=== PATIENT | female | born 1945 | race Caucasian/White ===

== ENCOUNTER 2016-08-01 12:05 | Inpatient (IN) ==
[2016-08-01 12:33] VITALS: BMI 26.9
[2016-08-01] MEDS ORDERED: ZOFRAN 4 MG/2 ML IVP PRN (12:39)
[2016-08-01 12:41] LABS: BASOPHILS % (AUTO) 0.4 % (0.0-3.0); EOSINOPHILS % (AUTO) 0.6 % (0.0-7.0); HEMOGLOBIN 11.4 g/dl (12.0-16.0); IMMATURE GRANULOCYTE % (AUTO) 0.2 % (0.0-5.0); LYMPHOCYTES # (AUTO) 0.7 K/uL (0.60-3.4); LYMPHOCYTES % (AUTO) 13.8 (10.0-50.0); MEAN CORPUSCULAR HEMOGLOBIN 27.1 pg (27.0-31.0); MEAN CORPUSCULAR HGB CONC 33.5 (31.8-35.4); MEAN CORPUSCULAR VOLUME 80.8 fl (81.0-99.0); MONOCYTES # (AUTO) 0.6 K/uL (0.4-2.0); MONOCYTES % (AUTO) 11.1 (0-10); NEUTROPHILS # (AUTO) 3.7 K/ul (2.0-6.9); NEUTROPHILS % (AUTO) 73.9; PLATELET COUNT 164 10^3/uL (140-440); RED BLOOD COUNT 4.21 10^6/ul (4.20-5.40); WHITE BLOOD COUNT 4.94 K/ul (4.6-10.2)
[2016-08-01 13:01] LABS: ALBUMIN 3.5 g/dL (3.4-5.0); ALBUMIN/GLOBULIN RATIO 1.06; ANION GAP 16.8; BILIRUBIN,TOTAL 0.74 mg/dL (0.00-1.20); BUN/CREATININE RATIO 11.34; CALCIUM 8.9 mg/dL (8.2-10.2); CREATININE 1.41 mg/dL (0.60-1.30); POTASSIUM 3.8 mmol/L (3.5-5.10); TOTAL PROTEIN 6.8 g/dL (5.8-8.1)
[2016-08-01] MEDS: SODIUM CHLORIDE 1,000 ML IV SCH (13:28)
[2016-08-01] MEDS: SOLU-MEDROL 40 MG IVP SCH ×2 (13:32→20:51)
[2016-08-01] MEDS: ROCEPHIN 1 GM in SODIUM CHLORIDE 100 ML IV SCH (13:32)
[2016-08-01] MEDS: DUONEB NEB SCH ×2 (13:52→22:28)
[2016-08-01 14:45] LABS: FLU INTERNAL QC INTERNAL QC VALID; RAPID FLU A POSITIVE (NEGATIVE); RAPID FLU B NEGATIVE (NEGATIVE)
--- NOTE | 2016-08-01 14:54 | DI ---
EXAM: PA and lateral views of the chest HISTORY: Bronchitis COMPARISON: Chest x-ray 04/07/[address] abdomen pelvis FINDINGS: The cardiomediastinal silhouette is unchanged with intact sternotomy wires and cardiac va lve. There is no pneumothorax or pleural effusion. There is no consolidation, nodule or mass. The minimal ground-glass noted in the left lower lobe on same day CT abdomen pelvis is not identified on chest x-ray. The osseous structures demonstrate scattered degenerative change and osteophyte format ion. IMPRESSION: 1. No acute consolidation or mass. Ground-glass in the left lower lobe on same day CT abdomen pelvi s is not identified on chest x-ray likely representing postinflammatory change. 2. Cardiomegaly with stable hardware.
--- NOTE | 2016-08-01 14:58 | CT ---
EXAM: CT Abdomen without contrast. CT Pelvis without contrast. HISTORY: Decreased appetite. Nausea. COMPARISON: 04/04/2016. TECHNIQUE: Multiple axial images of the abdomen and pelvis were obtained without intravenous contra st. Images were reformatted in the coronal plane. FINDINGS: Please note that evaluation of the abdominal and pelvic structures is limited due to lack of intravenous contrast. There has been previous sternotomy. Small focus of ground-glass opacities and small nodules seen in the left lower lobe on axial images six through 10. Thoracic spinal cord stimulator is present. Lower lumbar spine fusion changes noted. Degenerative changes present in the spine and hips. The liver, gallbladder, pancreas, spleen, and adrenal glands demonstrate normal contour. No calcifi ed renal stones or hydronephrosis detected. Duodenal diverticulum seen near the pancreatic head. The bowel is normal in course and caliber with out evidence for obstruction or inflammatory process. The appendix is not seen. Small of free pelv ic fluid noted. Uterine contours normal. Urinary bladder is unremarkable. No free air identified. Atherosclerotic calcifications present. Probable subcutaneous injection site in the right anterior abdomen on axial image 50. IMPRESSION: 1. No acute abnormality within the abdomen or pelvis. 2. Small amount of free pelvic fluid which is nonspecific. 3. Small focus of ground-glass opacities and small nodules in the left lower lobe which were not pr esent previously, most likely representing pneumonitis. Follow-up chest CT within 3 months recommen ded for reassessment.
[2016-08-01] MEDS: NYSTATIN ORAL SUSP PO SCH ×2 (15:28→20:52)
[2016-08-01] MEDS: TAMIFLU PO SCH ×2 (15:28→20:52)
[2016-08-01] MEDS: COUMADIN PO SCH ×2 (16:40→16:41)
[2016-08-01] MEDS: COREG PO SCH (16:40)
[2016-08-01] MEDS: GLUCOPHAGE PO SCH (16:40)
[2016-08-01] MEDS ORDERED: WARFARIN SODIUM 3.5 MG PO SCH (17:00)
[2016-08-01 17:39] LABS: BILIRUBIN,URINE Negative (NEGATIVE); KETONES,URINE 1+ (NEGATIVE); LEUKOCYTE ESTERASE ,URINE Negative (NEGATIVE); NITRITE,URINE Negative (NEGATIVE); PROTEIN,URINE Trace (NEGATIVE); URINE, BLOOD 1+ (NEGATIVE)
[2016-08-01 17:43] LABS: ADD URINE MICROSCOPIC YES
[2016-08-01 17:44] LABS: BACTERIA,URINE TRACE (NOT PRESENT)
[2016-08-01] MEDS: HUMULIN R SUBCUT PRN ×2 (18:33→21:09)
[2016-08-01] MEDS: BETAPACE PO SCH (20:51)
[2016-08-01] MEDS: ZOCOR PO SCH (20:52)
[2016-08-01] MEDS ORDERED: SOTALOL HCL 120 MG PO SCH (21:00)
[2016-08-02] MEDS: HUMULIN R SUBCUT PRN ×5 (01:56→20:33)
[2016-08-02] MEDS: SODIUM CHLORIDE 1,000 ML IV SCH ×2 (03:40→08:30)
[2016-08-02] MEDS: SOLU-MEDROL 40 MG IVP SCH ×3 (04:35→20:33)
[2016-08-02 05:13] LABS: HEMATOCRIT 29.5 % (37.0-47.0); HEMOGLOBIN 10.2 g/dl (12.0-16.0); IMMATURE GRANULOCYTE % (AUTO) 0.4 % (0.0-5.0); LYMPHOCYTES # (AUTO) 0.6 K/uL (0.60-3.4); LYMPHOCYTES % (AUTO) 22.2 (10.0-50.0); MEAN CORPUSCULAR HEMOGLOBIN 27.2 pg (27.0-31.0); MEAN CORPUSCULAR HGB CONC 34.6 (31.8-35.4); MEAN CORPUSCULAR VOLUME 78.7 fl (81.0-99.0); MONOCYTES # (AUTO) 0.1 K/uL (0.4-2.0); MONOCYTES % (AUTO) 2.4 (0-10); NEUTROPHILS # (AUTO) 1.9 K/ul (2.0-6.9); PLATELET COUNT 142 10^3/uL (140-440); RED BLOOD COUNT 3.75 10^6/ul (4.20-5.40); WHITE BLOOD COUNT 2.48 K/ul (4.6-10.2)
[2016-08-02] MEDS: DUONEB NEB SCH ×3 (05:13→21:26)
[2016-08-02] MEDS: PRILOSEC PO SCH (05:30)
[2016-08-02] MEDS: SYNTHROID PO SCH (05:30)
[2016-08-02 05:37] LABS: ALBUMIN/GLOBULIN RATIO 1.07; ANION GAP 14.2; BILIRUBIN,TOTAL 0.38 mg/dL (0.00-1.20); BUN/CREATININE RATIO 14.91; CALCIUM 8.5 mg/dL (8.2-10.2); CREATININE 1.14 mg/dL (0.60-1.30); POTASSIUM 3.2 mmol/L (3.5-5.10); TOTAL PROTEIN 5.8 g/dL (5.8-8.1)
[2016-08-02] MEDS: ROCEPHIN 1 GM in SODIUM CHLORIDE 100 ML IV SCH (08:28)
[2016-08-02] MEDS: BETAPACE PO SCH ×2 (08:28→20:34)
[2016-08-02] MEDS: COREG PO SCH ×2 (08:28→17:30)
[2016-08-02] MEDS: NYSTATIN ORAL SUSP PO SCH ×3 (08:28→20:33)
[2016-08-02] MEDS: TAMIFLU PO SCH ×2 (08:29→20:33)
[2016-08-02] MEDS: VITAMIN D PO SCH (08:29)
[2016-08-02] MEDS: ZESTRIL PO SCH (08:29)
[2016-08-02] MEDS: MICRO-K CAP PO SCH (08:29)
[2016-08-02] MEDS: GLUCOPHAGE PO SCH ×2 (08:29→17:30)
[2016-08-02] MEDS: LOZOL PO SCH (08:30)
[2016-08-02] MEDS ORDERED: POTASSIUM CHLORIDE PO SCH (09:00)
[2016-08-02] MEDS ORDERED: NON-FORMULARY MEDICATION (Cholecalciferol (Vitamin D3) [Vitamin D3] 1,000 UNIT) PO SCH ×22 (09:00)
--- NOTE | 2016-08-02 13:04 | PCM.PROG ---
Attending Provider: ATTENDING PROVIDER: Dr. LIBRADO REYES DATE OF SERVICE: 08/02/16 SUBJECTIVE: This 71 year old WHITE/ F was hospitalized 08/01/16. The patient is admitted from the office with flu-like symptoms. The patient is still coughing with congestion. The patient feels some better. She hasn't had any fever since admission. No nausea or vomiting. No abdominal pain. REVIEW OF SYSTEMS: CONSTITUTIONAL: No fever, no chills. ENDOCRINE: No weight loss or weight gain. HEENT: No sinus drainage, no sore throat. CVS: No angina symptoms. No CHF symptoms. No palpitations. No atypical chest pain for CAD. No shortness of breath. RESPIRATORY: No cough, no hemoptysis. GI: No melena. No abdominal pain. No nausea, no vomiting. : No hematuria. No polyuria. SKIN: No rash. No wounds. MUSCULOSKELETAL: No pain. PATTERN CLERK: No blackout, no dizziness. No headache. No double vision. PSYCHIATRIC: Not anxious; no depression. No suicidal thoughts. No homicidal thoughts. PHYSICAL EXAMINATION: GENERAL: Lying in bed in no distress. VITAL SIGNS: Temperature 98.2 F, Pulse 60, Respiratory Rate 13, BP 120/72, Pulse Ox 93% HEENT: Normocephalic, atraumatic. Mucosa is dry, pallor positive. NECK: No JVP, no carotid bruit. No lymphadenopathy. CARDIAC: S1, S2, no S3. No murmur, gallop or regurgitation. LUNGS: Decreased entry. Clear to auscultation. ABDOMEN: Soft, non-tender. Bowel sounds active. No rigidity, guarding or CVA tenderness. EXTREMITIES: No clubbing, cyanosis or edema. NEUROLOGIC: Awake, alert and oriented x3. LYMPHATIC: No palpable lymph nodes SKIN: Not dry. Intact. MUSCULOSKELETAL: No joint swelling. LAB REVIEW: 08/02/16 05:09 08/02/16 05:09 08/02/16 05:09: WBC 2.48 L, RBC 3.75 L, Hgb 10.2 L, Hct 29.5 L, MCV 78.7 L, MCH 27.2, MCHC 34.6, RDW Coeff of Zeus 13.6, Plt Count 142, Immature Gran % (Auto) 0.4, Neut % (Auto) 75.0, Lymph % (Auto) 22.2, [place] % (Auto) 2.4, Eos % (Auto) 0.0, Baso % (Auto) 0.0, Immature Gran # (Auto) 0.0, Neut # 1.9 L, Lymph # 0.6, [place] # 0.1 L, Eos # 0.0, Baso # 0.0, Sodium 134 L, Potassium 3.2 L, Chloride 97 L, Carbon Dioxide 26, Anion Gap 14.2, BUN 17, Creatinine 1.14, Estimated GFR ( MDRD) 47.00, BUN/Creatinine Ratio 14.91, Glucose 287 H D, Calcium 8.5, Total Bilirubin 0.38, AST 24, ALT 23, Alkaline Phosphatase 33 L, Total Protein 5.8, Albumin 3.0 L, Globulin 2.8, Albumin/Globulin Ratio 1.07 08/01/16 17:28: Urine Color Yellow, Urine Clarity Clear, Urine pH 6.0, Ur Specific [place] 1.015, Urine Protein Trace, Urine Glucose (UA) Negative, Urine Ketones 1+, Urine Blood 1+, Urine Nitrite Negative, Urine Bilirubin Negative, Urine Urobilinogen 0.2, Ur Leukocyte Esterase Negative, Urine Microscopic RBC 10 -20, Urine Microscopic WBC 0-2, Ur Squamous Epith Cells 0-2, Ur Renal Epithelial Cell 0-2, Urine Bacteria Trace 08/01/16 12:37: WBC 4.94, RBC 4.21, Hgb 11.4 L, Hct 34.0 L, MCV 80.8 L, MCH 27.1 , MCHC 33.5, RDW Coeff of Zeus 13.6, Plt Count 164, Immature Gran % (Auto) 0.2, Neut % (Auto) 73.9, Lymph % (Auto) 13.8, [place] % (Auto) 11.1 H, Eos % (Auto) 0.6 , Baso % (Auto) 0.4, Immature Gran # (Auto) 0.0, Neut # 3.7, Lymph # 0.7, [place] # 0.6, Eos # 0.0, Baso # 0.0, Sodium 134 L, Potassium 3.8, Chloride 93 L, Carbon Dioxide 28, Anion Gap 16.8, BUN 16, Creatinine 1.41 H, Estimated GFR ( MDRD) 37.00, BUN/Creatinine Ratio 11.34, Glucose 230 H, Calcium 8.9, Total Bilirubin 0.74, AST 33, ALT 26, Alkaline Phosphatase 37 L, Total Protein 6.8, Albumin 3.5, Globulin 3.3, Albumin/Globulin Ratio 1.06, Amylase 40, Lipase 33 08/01/16 12:24: Influenza A (Rapid) Positive H, Influenza B (Rapid) Negative ASSESSMENT: 1. Flu-A positive 2. Gastroenteritis 3. Dehydration 4. Diabetes mellitus 5. Hypertension 6. Dyslipidemia PLAN: 1. Continue Tamiflu 2. IV fluids 40 mL/hr 3. Rocephin 1 gm daily IV 4. Duonebs 5. Solu-Medrol 6. Up and about and walking Plan and coordination of the patient's care discussed in the presence of Biofuels Manager and nurse. CONDITION: Stable SCRIBED BY: JIGNESH REDDY Cell Coverer scribed while in presence of service performed by Dr. LIBRADO REYES on 08/02/16 ([id number])
--- NOTE | 2016-08-02 15:07 | HP ---
DATE OF SERVICE: 08/01/16 REASON FOR HOSPITALIZATION/ HISTORY OF PRESENT ILLNESS: Not feeling good, vomiting since Monday. Not able to keep anything down, Non- bilious and non bloody. No diarrhea, still coughing, congestion, getting yellow sputum and aches in chest and back. REVIEW OF SYSTEMS: CONSTITUTIONAL: No fever, Fatigue. HEENT: Sinus drainage, no sore throat. RESPIRATORY: Cough, no congestion. CARDIOVASCULAR: No atypical chest pain for coronary artery disease. No angina , CHF symptoms, palpitations or shortness of breath. GASTROINTESTINAL: No melena or abdominal pain. No GERD. GENITOURINARY: No hematuria, no prostatism, no polyuria. CANDY POLISHER: No blackout, no dizziness, no headache, no double vision. MUSCULOSKELETAL: Osteoarthritis pain, no joint swelling. ENDOCRINE: No weight loss, no weight gain. SKIN: Not dry, no rash. PSYCHIATRIC: Anxious, no depression, no suicidal thoughts, no homicidal thoughts. SOCIAL HISTORY: Marital Status: .Alcohol Usage: No. Tobacco Usage:No. Family History: Colon cancer. ALLERGIES: Acetaminophen Codeine Phosphate Erythromycin Hydrochlorothiazide Hydrocodone Penicillins MEDICATIONS: Warfarin 3.5mg PO QPM Vitamin D 1,000 unit PO daily Zocor 40mg PO bedtime Sotalol 120mg PO twice a day Glucophage 500mg PO twice a day Zestril 40mg PO daily Levothyroxine 88mcg PO daily Prilosec 20mg PO QDAC Klor-con 10meq PO daily Coreg 12.5mg PO twice a day Lozol 2.5mg PO daily PAST MEDICAL/SURGICAL HISTORY: Tubal-73 L-Spine, 83 Left foot 04 Anemia Diabetes mellitus type 2 PHYSICAL EXAMINATION: V/S: Pulse 76, blood pressure 100/68, temperature 98.2 and pulse ox 98% GENERAL APPEARANCE: Oriented times three. Weak, Dry Mucosa. Pallor positive. HEENT: Normal. NECK: No JVP, no bruits. RESPIRATORY: Lungs are clear. CARDIOVASCULAR: S1, S2, no S3, no murmurs. No cyanosis, clubbing. No ascites. GI/ABDOMEN: No tenderness. Bowel sounds are active. EXTREMITIES: edema, pulses +1, equal. CANDY POLISHER: Deep tendon reflexes, sensory, motor and gait all normal. RECTAL: 10/31 Dr. Hitchcock/PELVIC: Foot care discussed. Mammogram 06/02. ASSESSMENT: 1. Gastroenteritis 2. Dehydration 3. URTI/Bronchitis 4. Hypertension 5. Hypothyroidism 6. GERD 7. Dyslipidemia 8. Atrial fibrillation, on Coumadin 9. Anemia 10.Diabetes mellitus, type 2, 7.5 11. Chronic kidney disease stage 2 PLAN: 1. CBC, CMP, Amylase and Lipase 2. Urine analysis 3. Rapid Flu A&B 4. CT Abdomen and pelvis with contrast 5. Chest x-ray AP and lateral 6. Normal Saline at 70ml per hour 7. Rocephin 1 gram IV daily 8. DUO NEB three times a day 9. Solu-Medrol 40 IV Q 8 hours 10.Nystatin Swish and swallow 11.Continue home medication 12.Zofran 4mg IV Q 6 hours PRN 13.Accu-checks Q 4 hours with regular insulin coverage. TIME SPENT: More than 70 minutes. MTDD
[2016-08-02] MEDS: COUMADIN PO SCH ×2 (17:30)
[2016-08-02] MEDS: ZOCOR PO SCH (20:34)
[2016-08-03] MEDS: SODIUM CHLORIDE 1,000 ML IV SCH (04:00)
[2016-08-03 04:42] LABS: BASOPHILS % (AUTO) 0.1 % (0.0-3.0); HEMATOCRIT 28.6 % (37.0-47.0); HEMOGLOBIN 9.8 g/dl (12.0-16.0); IMMATURE GRANULOCYTE % (AUTO) 0.5 % (0.0-5.0); LYMPHOCYTES # (AUTO) 0.8 K/uL (0.60-3.4); MEAN CORPUSCULAR HGB CONC 34.3 (31.8-35.4); MEAN CORPUSCULAR VOLUME 78.8 fl (81.0-99.0); MONOCYTES # (AUTO) 0.3 K/uL (0.4-2.0); MONOCYTES % (AUTO) 3.6 (0-10); NEUTROPHILS # (AUTO) 7.4 K/ul (2.0-6.9); NEUTROPHILS % (AUTO) 86.8; PLATELET COUNT 152 10^3/uL (140-440); RED BLOOD COUNT 3.63 10^6/ul (4.20-5.40); WHITE BLOOD COUNT 8.54 K/ul (4.6-10.2)
[2016-08-03] MEDS: DUONEB NEB SCH ×3 (04:57→22:35)
[2016-08-03 05:02] LABS: ALBUMIN 3.1 g/dL (3.4-5.0); ALBUMIN/GLOBULIN RATIO 1.11; ANION GAP 16.4; BILIRUBIN,TOTAL 0.27 mg/dL (0.00-1.20); BUN/CREATININE RATIO 15.09; CALCIUM 8.5 mg/dL (8.2-10.2); CREATININE 1.06 mg/dL (0.60-1.30); POTASSIUM 3.4 mmol/L (3.5-5.10); TOTAL PROTEIN 5.9 g/dL (5.8-8.1)
[2016-08-03] MEDS: SOLU-MEDROL 40 MG IVP SCH ×3 (05:27→20:47)
[2016-08-03] MEDS: PRILOSEC PO SCH (05:30)
[2016-08-03] MEDS: SYNTHROID PO SCH (05:30)
[2016-08-03] MEDS: HUMULIN R SUBCUT PRN ×3 (05:30→20:43)
[2016-08-03] MEDS: GLUCOPHAGE PO SCH ×2 (08:30→17:01)
[2016-08-03] MEDS: COREG PO SCH ×2 (08:30→17:01)
[2016-08-03] MEDS: VITAMIN D PO SCH (09:09)
[2016-08-03] MEDS: ZESTRIL PO SCH (09:09)
[2016-08-03] MEDS: TAMIFLU PO SCH ×2 (09:09→20:40)
[2016-08-03] MEDS: MICRO-K CAP PO SCH (09:09)
[2016-08-03] MEDS: ROCEPHIN 1 GM in SODIUM CHLORIDE 100 ML IV SCH (09:10)
[2016-08-03] MEDS: BETAPACE PO SCH ×2 (09:10→20:40)
[2016-08-03] MEDS: NYSTATIN ORAL SUSP PO SCH ×3 (09:10→20:39)
[2016-08-03] MEDS: LOZOL PO SCH (09:14)
[2016-08-03 13:59] LABS: IMMATURE RETIC FRACTION 13.8; RETICULOCYTE % 1.44 %
[2016-08-03 15:12] LABS: FERRITIN 58.31 ng/mL (4.63-204.00); FOLATE 13.9 ng/mL (3.1-20.5)
[2016-08-03] MEDS: INDAPAMIDE 1.25 MG PO SCH ×2 (16:08→17:04)
[2016-08-03 17:35] LABS: PROTHROMBIN TIME 23.1 SEC (9.3-11.0)
[2016-08-03] MEDS: COUMADIN PO SCH ×2 (17:45)
[2016-08-03] MEDS: ZOCOR PO SCH (20:51)
[2016-08-04 02:25] LABS: OCCULT BLOOD INTERNAL QC 1 INTERNAL QC VALID; OCCULT BLOOD SAMPLE 1 NEGATIVE (NEGATIVE)
[2016-08-04] MEDS: DUONEB NEB SCH (05:10)
[2016-08-04] MEDS: SYNTHROID PO SCH (06:37)
[2016-08-04] MEDS: PRILOSEC PO SCH (06:37)
[2016-08-04] MEDS: SOLU-MEDROL 40 MG IVP SCH (06:38)
[2016-08-04] MEDS: SODIUM CHLORIDE 1,000 ML IV SCH (06:42)
[2016-08-04] MEDS: HUMULIN R SUBCUT PRN ×2 (06:50→11:37)
[2016-08-04 07:00] LABS: BASOPHILS % (AUTO) 0.1 % (0.0-3.0); HEMATOCRIT 33.5 % (37.0-47.0); HEMOGLOBIN 10.5 g/dl (12.0-16.0); IMMATURE GRANULOCYTE % (AUTO) 0.5 % (0.0-5.0); LYMPHOCYTES # (AUTO) 0.8 K/uL (0.60-3.4); LYMPHOCYTES % (AUTO) 7.8 (10.0-50.0); MEAN CORPUSCULAR HEMOGLOBIN 27.3 pg (27.0-31.0); MEAN CORPUSCULAR HGB CONC 31.3 (31.8-35.4); MEAN CORPUSCULAR VOLUME 87.2 fl (81.0-99.0); MONOCYTES # (AUTO) 0.2 K/uL (0.4-2.0); MONOCYTES % (AUTO) 2.2 (0-10); NEUTROPHILS # (AUTO) 8.7 K/ul (2.0-6.9); NEUTROPHILS % (AUTO) 89.4; PLATELET COUNT 167 10^3/uL (140-440); RED BLOOD COUNT 3.84 10^6/ul (4.20-5.40); WHITE BLOOD COUNT 9.78 K/ul (4.6-10.2)
[2016-08-04 07:31] LABS: ALBUMIN 3.3 g/dL (3.4-5.0); ALBUMIN/GLOBULIN RATIO 1.18; ANION GAP 17.4; BILIRUBIN,TOTAL 0.27 mg/dL (0.00-1.20); BUN/CREATININE RATIO 19.64; CALCIUM 8.6 mg/dL (8.2-10.2); CREATININE 1.12 mg/dL (0.60-1.30); POTASSIUM 3.4 mmol/L (3.5-5.10); TOTAL PROTEIN 6.1 g/dL (5.8-8.1)
[2016-08-04 08:00] LABS: OCCULT BLOOD INTERNAL QC 2 INTERNAL QC VALID; OCCULT BLOOD INTERNAL QC 3 INTERNAL QC VALID; OCCULT BLOOD SAMPLE 2 NO SPECIMEN RECEIVED (NEGATIVE); OCCULT BLOOD SAMPLE 3 NO SPECIMEN RECEIVED (NEGATIVE)
[2016-08-04 08:46] LABS: PROTHROMBIN TIME 23.7 SEC (9.3-11.0)
[2016-08-04] MEDS: TAMIFLU PO SCH (10:06)
[2016-08-04] MEDS: COREG PO SCH (10:06)
[2016-08-04] MEDS: ZESTRIL PO SCH (10:06)
[2016-08-04] MEDS: BETAPACE PO SCH (10:06)
[2016-08-04] MEDS: GLUCOPHAGE PO SCH (10:06)
[2016-08-04] MEDS: VITAMIN D PO SCH (10:06)
[2016-08-04] MEDS: MICRO-K CAP PO SCH (10:07)
[2016-08-04] MEDS: INDAPAMIDE 1.25 MG PO SCH (10:07)
[2016-08-04] MEDS: ROCEPHIN 1 GM in SODIUM CHLORIDE 100 ML IV SCH (10:08)
[2016-08-04] MEDS: NYSTATIN ORAL SUSP PO SCH (10:09)
[2016-08-04 11:01] VITALS: BP 118/84; TEMP 98
--- NOTE | 2016-08-04 11:37 | CM.DICTOOL ---
ADMISSION: 08/01/16 12:05 DISCHARGE: 08/04/16 DATE OF SERVICE: 08/04/16 FINAL DIAGNOSIS INFLUENZA A GASTROENTERITIS DEHYDRATION BRONCHITIS CAD S/P CABG, 2010 HISTORY OF ATRIAL FIBRILLATION DYSLIPIDEMIA HYPERTENSION ANEMIA VITAMIN B 12 DEFICIENCY DM, TYPE 2 HYPOTHYROIDISM GERD MITRAL VALVE SURGERY LUMBAR SURGERY, 1972, 1979 LEFT FOOT SURGERY, 2002 AND 2003 CHOLECYSTECTOMY TUBAL LIGATION, 1972 COLONOSCOPY 10/31 LAST VITALS Temp Pulse Resp BP Pulse Ox 98.0 F 69 13 150/86 H 91 L 08/04/16 06:00 08/04/16 06:00 08/04/16 06:00 08/04/16 06:00 08/04/16 06:00 ACTIVE MEDICATIONS Carvedilol (Coreg) 12.5 mg PO BIDWM [facility] Last Admin: 08/03/16 17:01 Dose: 12.5 mg Cholecalciferol (Vitamin D) 1,000 unit PO DAILY [facility] Last Admin: 08/03/16 09:09 Dose: 1,000 unit Levothyroxine Sodium (Synthroid) 88 mcg PO QDAC [facility] Last Admin: 08/04/16 06:37 Dose: 88 mcg Lisinopril (Zestril) 40 mg PO DAILY [facility] Last Admin: 08/03/16 09:09 Dose: 40 mg Metformin HCl (Glucophage) 500 mg PO BIDWM [facility] Last Admin: 08/03/16 17:01 Dose: 500 mg Indapamide [Indapamide] 1.25 mg PO DAILY [facility] Last Admin: 08/03/16 17:04 Dose: 1.25 mg Omeprazole (Prilosec) 20 mg PO QDAC [facility] Last Admin: 08/04/16 06:37 Dose: 20 mg Oseltamivir Phosphate (Tamiflu) 75 mg PO Q12HR [facility] Last Admin: 08/03/16 20:40 Dose: 75 mg Potassium Chloride (Micro-K Cap) 10 meq PO DAILY [facility] Last Admin: 08/03/16 09:09 Dose: 10 meq Simvastatin (Zocor) 40 mg PO BEDTIME [facility] Last Admin: 08/03/16 20:51 Dose: 40 mg Sotalol HCl (Betapace) 120 mg PO BID [facility] Last Admin: 08/03/16 20:40 Dose: 120 mg Warfarin Sodium (Coumadin) 2.5 mg PO QPM [facility] Last Admin: 02/15/17 17:45 Dose: Not Given Warfarin Sodium (Coumadin) 1 mg PO QPM [facility] Last Admin: 08/03/16 17:45 Dose: Not Given DENOTES MEDICATIONS ADDED DURING THIS HOSPITALIZATION THAT WILL BE CONTINUED AT DISCHARGE ALLERGIES acetaminophen [From Vicodin] Adverse Reaction (Verified 04/04/16 08:42) codeine phosphate [From Tylenol-Codeine #3] Adverse Reaction (Unverified 08:42) erythromycin base [Erythromycin Base] Adverse Reaction (Verified 04/04/16 08:42) hydrochlorothiazide Adverse Reaction (Verified 04/04/16 08:42) hydrocodone bitartrate [From Vicodin] Adverse Reaction (Verified 04/04/16 08:42) Penicillins Adverse Reaction (Verified 04/04/16 08:42) NEW PRESCRIPTIONS: KEFLEX 500 MG, TAKE ONE TABLET BY MOUTH TWICE DAILY FOR 5 (FIVE) DAYS PREDNISONE 10 MG, TAKE ONE TABLET BY MOUTH TWICE DAILY FOR 7 (SEVEN) DAYS WITH FOOD TAMIFLU 75 MG, TAKE ONE TABLET BY MOUTH EVERY 12 HOURS TODAY AND TOMORROW TO FINISH TESSALON PERLES, TAKE ONE CAPSULE BY MOUTH Q 6 HOURS NEEDED FOR COUGHING SMOKING: NONSMOKER DISEASE SPECIFIC EDUCATION: INFLUENZA A TAMIFLU MEDICATION HOME MEDICATIONS NEW PRESCRIPTIONS FOLLOW UP ACTIVITY LAB REVIEW: 08/04/16 06:30 08/04/16 06:30 08/04/16 08:25: PT 23.7 H, INR 2.30 08/04/16 06:30: WBC 9.78, RBC 3.84 L, Hgb 10.5 L, Hct 33.5 L, MCV 87.2 D, MCH 27.3, MCHC 31.3 L, RDW Coeff of Zeus 14.2, Plt Count 167, Immature Gran % (Auto) 0.5, Neut % (Auto) 89.4, Lymph % (Auto) 7.8 L, [place] % (Auto) 2.2, Eos % (Auto) 0.0, Baso % (Auto) 0.1, Immature Gran # (Auto) 0.1, Neut # 8.7 H, Lymph # 0.8, [place] # 0.2 L, Eos # 0.0, Baso # 0.0, Sodium 135 L, Potassium 3.4 L, Chloride 99 , Carbon Dioxide 22 L, Anion Gap 17.4, BUN 22 H, Creatinine 1.12, Estimated GFR (MDRD) 48.00, BUN/Creatinine Ratio 19.64, Glucose 298 H, Calcium 8.6, Total Bilirubin 0.27, AST 18, ALT 20, Alkaline Phosphatase 31 L, Total Protein 6.1, Albumin 3.3 L, Globulin 2.8, Albumin/Globulin Ratio 1.18 08/04/16 02:00: Stl Occult Blood (IFOB) Negative, Stool Occult Blood #2 No specimen received, Stool Occult Blood #3 No specimen received 08/03/16 17:00: PT 23.1 H, INR 2.24 08/03/16 06:00: Reticulocyte % (Auto) 1.44, Absolute Retic 0.0528, Retic Hgb Equivalent 32.6, Iron 22 L, TIBC 325, % Saturation 7, Unsat Iron Binding 303, Transferrin 255, Ferritin 58.31, Vitamin B12 1588 H, Folate 13.9 PLAN: DISCHARGE HOME TODAY RETURN TO SEE DR. REYES IN 5-7 DAYS. PLEASE CALL TO SCHEDULED YOUR APPOINTMENT ([phone]) RESUME YOUR HOME MEDICATIONS PER LIST PROVIDED BY THE NURSING STAFF NEW PRESCRIPTIONS: KEFLEX 500 MG, TAKE ONE TABLET BY MOUTH TWICE DAILY FOR 5 (FIVE) DAYS PREDNISONE 10 MG, TAKE ONE TABLET BY MOUTH TWICE DAILY FOR 7 (SEVEN) DAYS WITH FOOD TAMIFLU 75 MG, TAKE ONE TABLET BY MOUTH EVERY 12 HOURS TODAY AND TOMORROW TO FINISH TESSALON PERLES, TAKE ONE CAPSULE BY MOUTH Q 6 HOURS NEEDED FOR COUGHING ACTIVITY: GET PLENTY OF REST AT HOME. GRADUALLY INCREASE YOUR ACTIVITY LEVEL ACCORDING TO YOUR TOLERATION DIET: CONSISTENT CARBS STAY WELL HYDRATED SUMMARY: THE PATIENT IS ALERT AND ORIENTED X3. SHE CURRENTLY RESIDES AT HOME WITH HER SPOUSE. SHE HAS BEEN INDEPENDENT WITH ADL'S PRIOR TO THIS HOSPITALIZATION. AT HOME SHE HAS A GLUCOMETER AND TESTING SUPPLIES. SHE HAS NO OTHER DURABLE MEDICAL EQUIPMENT, NO HOME HEALTH AND NO HOMEMAKING SERVICES. AT DISCHARGE SHE HAS NO DME OR SERVICE NEEDS. SHE DESIRES TO RETURN TO HER HOME. HER SKIN TURGOR IS INTACT. SHE HAS NO DECUBITUS ULCERS PRESENT UPON DISCHARGE. HER HYDRATION STATUS IS IMPROVED. SHE IS AFEBRILE. MS. CENTENO IS AWARE AND AGREEABLE FOR TODAY'S DISCHARGE. LIBRADO REYES M.D.
--- NOTE | 2016-08-10 11:32 | DS ---
DATE OF SERVICE: 08/04/16 FINAL DIAGNOSIS: 1. Influenza A 2. Dehydration 3. Gastroenteritis 4. Upper respiratory infection 5. CAD, status post bypass surgery 6. History of atrial fibrillation, on anticoagulation 7. Chronic anemia 8. Hypertension 9. Dyslipidemia 10.Vitamin B 12 deficiency 11.Diabetes Mellitus, type 2 12.Hypothyroidism 13.GERD 14.History of mitral valve repair 15.Lumbar surgery 16.Left foot surgery 17.Cholecystectomy 18.Tubal ligation 19.Colonoscopy LAST VITALS: Blood pressure 150/86, pulse 69, respiratory rate 13, temperature 98.0 and pulse ox 96% on room air. DISCHARGE INSTRUCTIONS: Discharge home today. Continue rest of home medications. Return to see Dr. Walker in 5-7 days. MEDICATIONS AT DISCHARGE: Coreg Vitamin D Synthroid Zestril Glucophage Indapamide Prilosec Tamiflu Potassium Zocor Betapace Coumadin NEW PRESCRIPTIONS: Keflex 500mg twice a day for 5 days Prednisone 10mg twice a day for 7 days Tamiflu twice a day for 2 days. Tessaldiane Perles DIET INSTRUCTIONS: Consistent carbs Stay well hydrated. ACTIVITY: Get plenty of rest at home. Gradually increase activity level according to toleration. SMOKING: Non-smoker. DISEASE SPECIFIC EDUCATION: Influenza A Tamiflu medication Antibiotic and antibiotic induced diarrhea Dehydration skilled nursing anticoagulation and the effects of the Intracranial bleed and GI bleed been discussed and verbalized understanding. HOSPITAL COURSE: Marcela Quiros who is a 71 year old female came to the office complaining of cough and congestion and upper respiratory infection symptoms. Temperature was 100 in the office and the patient was feeling weak and tired. She was admitted to the hospital. PT-INR was normal, hgb 11.4, serology showed the Flu A positive and urine was negative for any infection and positive for the ketones. BUN 141 and sugar was 230. At that time the patient was started on the IV fluids, Tamiflu, Rocephin, breathing treatment and Steroids. With the given treatment gradually the patient was feeling better and did not have any problem. Hgb stayed stable 11.4, 10.2, 9.8 and 10.5. Stool for occult blood test was negative, sodium, creatinine and BUN all are within normal limits. Her vitamin B12 was 1588. The patient was doing good, as patient was feeling better and did not have any complications CT of abdomen and pelvis and chest X-ray did not show any acute findings at that time she is discharged home on antibiotics and steroids. She was advanced to increase hydration and will be following up with the patient in office within 5-7 days. TIME SPENT: More than 45 minutes. JANET
--- NOTE | 2016-08-10 13:33 | PN ---
DATE OF SERVICE: 08/03/16 SUBJECTIVE: The patient was admitted with the flu symptoms. She says that she is feeling better. Still feels some weakness and shortness of breath exertion and coughing , no phlegm, no fever or chills. REVIEW OF SYSTEMS: CONSTITUTIONAL: No fever, no chills. HEENT: Normal. ENDOCRINE: No weight gain, no weight loss. CVS: No angina symptoms. No CHF symptoms. No palpitations. No atypical chest pain for CAD. No shortness of breath. No PND, no orthopnea. RESPIRATORY: No cough, no hemoptysis. GI: No nausea, no vomiting. No abdominal pain. : No hematuria. No polyuria. MUSCULOSKELETAL:. No joint swelling. PSYCHIATRIC: Not anxious. No depression. No suicidal thoughts. No homicidal thoughts. SKIN: Intact. No rash. PHYSICAL EXAMINATION: V/S: blood pressure 120/60, respiratory rate 24, heart rate 77 and temperature 98.0. HEENT: Normocephalic, atraumatic. Ears, eyes, nose and throat normal. Mucosa dry. Pallor positive. No icterus. NECK: Supple. No JVD, no carotid bruit. No lymphadenopathy. LUNGS: Decreased and clear to auscultation. No rales or rhonchi. HEART: S1, S2 normal. No S3. No murmur, gallop or regurgitation. ABDOMEN: Soft, nontender. Bowel sounds active. No rigidity. No rebound or guarding. No CVA tenderness. EXTREMITIES: No clubbing, cyanosis or pedal edema. MUSCULOSKELETAL: No joint swelling. NEUROLOGIC: Awake, alert, oriented times three. No focal deficit. LYMPHATIC: No lymph nodes palpable. SKIN: Intact. LABS: WBC 8.54, hgb 9.8, hct 28.6, plt count 152, sodium 135, potassium 3.4, chloride 99, bicarb 23,. BUN 16, creatinine 1.06 and glucose 249. ASSESSMENT: 1. Flu A 2. Dehydration 3. Anemia secondary to chronic disease 4. Atrial fibrillation on Coumadin 5. History of mitral valve repair 6. Coronary artery disease 7. Hypertension 8. Dyslipidemia PLAN: 1. Continue the Rocephin 2. Tamiflu 3. IV fluids 4. Out of bed to chair activity as tolerated. TIME SPENT: More than 30 minutes MTDD
== END 2016-08-04 12:32 | disposition home or self-care (01) | DRG 866 ==
LOC: MEDSURG B 12:05
PROVIDERS: ADMIT Emergency Medicine; ATTEND Emergency Medicine
DX: J09.X3 Influenza due to identified novel influenza A virus with gastrointestinal manifestations (principal); J06.9 Acute upper respiratory infection, unspecified; E86.0 Dehydration; E11.9 Type 2 diabetes mellitus without complications; E78.5 Hyperlipidemia, unspecified; D64.9 Anemia, unspecified; I48.91 Unspecified atrial fibrillation; I25.10 Atherosclerotic heart disease of native coronary artery without angina pectoris; I10 Essential (primary) hypertension; E53.8 Deficiency of other specified B group vitamins; Z79.01 Long term (current) use of anticoagulants; Z79.84 Long term (current) use of oral hypoglycemic drugs; Z79.899 Other long term (current) drug therapy
CPT/HCPCS: 36415; 80053; 81001; 82150; 82272; 82607; 82728; 82746; 82962; 83540; 83550; 83690; 84466; 85025; 85045; 85610; 87804; 93005; 93010; 94640

== ENCOUNTER 2016-08-22 10:21 | Emergency (ER) ==
[2016-08-22 10:35] VITALS: BMI 26.3
[2016-08-22] MEDS ORDERED: SODIUM CHLORIDE 1,000 ML IV STA (10:37)
--- NOTE | 2016-08-22 10:37 | ED.PDOC ---
General ED Provider: Dr. SADE ROGERS JR Chief Complaint: Shortness of Air Stated Complaint: yesterday no energy SOA. cough, clear- sputum. Low abd pain. "feels like it's raw in there." BP low. Dark red blood in stool early this am. INR 8.0 this AM. appt with Dr Walker at 10:30 today, came to ER. held coumadin yesterday & BP meds this AM.[End]98.2 75 20 98% 90/63 11/26 Time Seen by Physician: 10:35 Mode of Arrival: Wheelchair Information Source: Patient Exam Limitations: No limitations Primary Care Provider: WILLOW BOGGS Nursing and Triage Documentation Reviewed and Agree: No Review of Systems - Review Of Systems Constitutional: Reports: Malaise, Weakness Eyes: Reports: No symptoms Ears, Nose, Mouth, Throat: Reports: No symptoms Respiratory: Reports: Cough, Short of air Cardiac: Reports: No symptoms GI: Reports: Abdominal pain, Rectal bleeding : Reports: No symptoms Musculoskeletal: Reports: No symptoms Skin: Reports: No symptoms Neurological: Reports: No symptoms Endocrine: Reports: No symptoms Hematologic/Lymphatic: Reports: No symptoms All Other Systems: Other Past Medical History - Past Medical History Endocrine: Reports: DM 2, Dyslipidemia Cardiovascular: Reports: Hypertension, A-Fib Respiratory: Reports: None Hematological: Reports: None Gastrointestinal: Reports: None Genitourinary: Reports: None Neuro/Psych: Reports: Dementia Musculoskeletal: Reports: None Cancer: Reports: None Last Menstrual Period: unknown - Surgical History General Surgical History: Reports: Tubal ligation, CABG, Orthopedic (FOOT SURGERY), Back Surgery - Family History Family History: Reports: Unknown - Social History Smoking Status: Never smoker Hx Substance Use: No Alcohol Screening: None Physical Exam - Physical Exam Appearance: Ill-appearing Ill-appearing: Mild Pain Distress: Mild Eyes: FERNANDO, EOMI, Conjunctiva clear ENT: Ears normal, Nose normal, Oropharynx normal Neck: Supple Respiratory: Airway patent, Breath sounds clear, Breath sounds equal, Respirations nonlabored Cardiovascular: RRR, Pulses normal, No rub, No murmur GI/: Soft, Nontender, No masses, Bowel sounds normal, No Organomegaly Musculoskeletal: Normal strength, ROM intact, No edema, No calf tenderness Skin: Warm, Dry, Pale Neurological: Sensation intact, Motor intact, Reflexes intact, Cranial nerves intact, Alert, Oriented Psychiatric: Affect appropriate, Mood appropriate Interpretation - Radiology Interpretation Radiology Interpretation By: Radiologist Radiology Results: Negative Exam Interpreted: CXR - EKG Interpretation Time of EKG #1: 10:45 Rate: Normal Rhythm: Sinus Ectopy: None South Range: NL ST Segment: Other (nonspecific IVCD no acute changes) Physician Notification - Case Discussed Physician Notified: [email or web address] Time of Notification: 11:45 Physician Notified: [email or web address] Time of Notification: 12:10 (accepts to [facility]) Critical Care Note - Critical Care Note Total Time (mins): 0 Course - Course Hematology/Chemistry: 08/22/16 10:45 08/22/16 10:45 Orders, Labs, Meds: Lab Review 08/22/16 08/22/16 08/22/16 10:38 10:45 11:08 WBC 11.99 H RBC 2.93 L Hgb 8.0 L Hct 23.5 L MCV 80.2 L MCH 27.3 MCHC 34.0 RDW Coeff of Zeus 14.4 Plt Count 242 Immature Gran % (Auto) 0.5 Neut % (Auto) 79.0 Lymph % (Auto) 13.2 Walton % (Auto) 6.7 Eos % (Auto) 0.3 Baso % (Auto) 0.3 Immature Gran # (Auto) 0.1 Neut # 9.5 H Lymph # 1.6 Walton # 0.8 Eos # 0.0 Baso # 0.0 PT 104.0 H INR 10.10 H* Puncture Site Rrad O2 Saturation 98.0 ABG pH 7.452 H ABG pCO2 34.5 L ABG pO2 97.0 ABG HCO3 24.1 ABG Total CO2 25 ABG Base Excess 0 Marquez Test + FiO2 % 21.0 Sodium 134 L Potassium 4.0 Chloride 97 L Carbon Dioxide 26 Anion Gap 15.0 BUN 26 H Creatinine 1.18 Estimated GFR (MDRD) 45.00 BUN/Creatinine Ratio 22.03 Glucose 304 H Calcium 8.6 Total Bilirubin 0.55 AST 15 ALT 17 Alkaline Phosphatase 28 L Total Creatine Kinase 45 Troponin I < 0.0100 B-Natriuretic Peptide 126 H Total Protein 6.3 Albumin 3.2 L Globulin 3.1 Albumin/Globulin Ratio 1.03 Stl Occult Blood (IFOB) Positive Stool Occult Blood #2 Pending Stool Occult Blood #3 Pending Blood Type A NEGATIVE Antibody Screen Negative Orders Category Date Time Status ABG DRAW REQUEST Stat CARDIO 08/22/16 10:38 Completed EKG-(ED ONLY) Stat CARDIO 08/22/16 10:37 Completed ED IV/MEDIPORT/POWERPORT .ONCE EMERGENCY 08/22/16 10:37 Active ABG Stat LAB 08/22/16 10:38 Completed B-TYPE NATRIURETIC PEPTIDE Stat LAB 08/22/16 10:45 Completed CBC W/ AUTO DIFF Stat LAB 08/22/16 10:45 Completed COMPREHENSIVE METABOLIC PANEL Stat LAB 08/22/16 10:45 Completed CREATINE KINASE Stat LAB 08/22/16 10:45 Completed OCCULT BLOOD, STOOL Stat LAB 08/22/16 11:08 Results PT WITH INR Stat LAB 08/22/16 10:45 Completed TROPONIN I Stat LAB 08/22/16 10:45 Completed TYPE AND SCREEN Stat LAB 08/22/16 10:45 Completed 0.9 % Sodium Chloride [Saline Flush] MEDS 08/22/16 10:37 Active 1 syr IVF PRN PRN Phytonadione [Mephyton] MEDS 08/22/16 11:34 Discontinued 5 mg PO ONCE STA Sodium Chloride 0.9% [Sodium Chloride] 1,000 ml MEDS 08/22/16 10:37 Active IV 100 mls/hr Sodium Chloride 0.9% [Sodium Chloride] 300 ml MEDS 08/22/16 11:51 Discontinued IV BOLUS CHEST, 1V AP ONLY Stat RADS 08/22/16 10:37 Completed Medications Generic Name Dose Route Start Last Admin Trade Name Freq PRN Reason Stop Dose Admin Sodium Chloride 1,000 mls @ 100 mls/hr 08/22/16 10:37 08/22/16 11:00 Sodium Chloride IV 08/22/16 20:36 100 mls/hr .Q10H STA Administration Sodium Chloride 1 syr 08/22/16 10:37 Saline Flush IVF PRN PRN To flush IV Discontinued Medications Generic Name Dose Route Start Last Admin Trade Name Freq PRN Reason Stop Dose Admin Sodium Chloride 300 mls @ 1,000 mls/hr 08/22/16 11:51 Sodium Chloride IV 08/22/16 12:08 BOLUS STA Phytonadione 5 mg 08/22/16 11:34 08/22/16 11:47 Mephyton PO 08/22/16 11:35 5 mg ONCE STA Administration Vital Signs: Temp Pulse Resp BP Pulse Ox 08/22/16 12:04 97.4 F L 71 16 101/68 99 08/22/16 10:23 98.2 F 75 20 90/63 98 Departure - Departure Time of Disposition: 11:30 Disposition: ADMITTED INPATIENT Discharge Problem: GI bleed not requiring more than 4 units of blood in 24 hours, ICU, or surgery Condition: Good Pt referred to PMD for follow-up: Yes Allergies/Adverse Reactions: Allergies acetaminophen [From Vicodin] Adverse Reaction (Verified 08/22/16 10:33) codeine phosphate [From Tylenol-Codeine #3] Adverse Reaction (Verified 08/22/16 10:33) erythromycin base [Erythromycin Base] Adverse Reaction (Verified 08/22/16 10:33) hydrochlorothiazide Adverse Reaction (Verified 08/22/16 10:33) hydrocodone bitartrate [From Vicodin] Adverse Reaction (Verified 08/22/16 10:33) Penicillins Adverse Reaction (Verified 08/22/16 10:33) Home Medications: Ambulatory Orders Cholecalciferol (Vitamin D3) [Vitamin D] 1,000 unit PO DAILY 02/10/13 Levothyroxine Sodium 88 mcg PO DAILY 02/10/13 Lisinopril [Zestril] 40 mg PO DAILY 02/10/13 Metformin HCl [Glucophage] 500 mg PO BIDWM 02/10/13 Omeprazole [Prilosec] 20 mg PO QDAC 02/10/13 Simvastatin [Zocor] 40 mg PO BEDTIME 02/10/13 Sotalol HCl [Sotalol] 120 mg PO BID 02/10/13 Warfarin Sodium [Coumadin] 3.5 mg PO QPM 02/10/13 Potassium Chloride [Klor-Con 10] 10 mg PO DAILY 10/17/14 Carvedilol [Coreg] 12.5 mg PO BIDWM 04/06/16 Indapamide 1.25 mg PO DAILY 08/03/16
[2016-08-22 10:53] LABS: ABG BASE EXCESS 0 (-2.0-2.0); ABG HCO3 24.1 (22.0-26.0); ABG PCO2 34.5 mmHg (35-45); ABG PH 7.452 (7.35-7.45); ABG TCO2 25 (22.0-28.0)
[2016-08-22 10:58] LABS: BASOPHILS % (AUTO) 0.3 % (0.0-3.0); EOSINOPHILS % (AUTO) 0.3 % (0.0-7.0); HEMATOCRIT 23.5 % (37.0-47.0); IMMATURE GRANULOCYTE % (AUTO) 0.5 % (0.0-5.0); LYMPHOCYTES # (AUTO) 1.6 K/uL (0.60-3.4); LYMPHOCYTES % (AUTO) 13.2 (10.0-50.0); MEAN CORPUSCULAR HEMOGLOBIN 27.3 pg (27.0-31.0); MEAN CORPUSCULAR VOLUME 80.2 fl (81.0-99.0); MONOCYTES # (AUTO) 0.8 K/uL (0.4-2.0); MONOCYTES % (AUTO) 6.7 (0-10); NEUTROPHILS # (AUTO) 9.5 K/ul (2.0-6.9); PLATELET COUNT 242 10^3/uL (140-440); RED BLOOD COUNT 2.93 10^6/ul (4.20-5.40); WHITE BLOOD COUNT 11.99 K/ul (4.6-10.2)
[2016-08-22 11:25] LABS: OCCULT BLOOD INTERNAL QC 1 INTERNAL QC VALID; OCCULT BLOOD SAMPLE 1 POSITIVE (NEGATIVE)
[2016-08-22 11:26] LABS: ALANINE AMINOTRANSFERASE 17 U/L (12-78); ALBUMIN 3.2 g/dL (3.4-5.0); ALBUMIN/GLOBULIN RATIO 1.03; ALKALINE PHOSPHATASE 28 U/L (53-141); ASPARTATE AMINO TRANSFERASE 15 U/L (15-37); BILIRUBIN,TOTAL 0.55 mg/dL (0.00-1.20); BLOOD UREA NITROGEN 26 mg/dL (7-18); BUN/CREATININE RATIO 22.03; CALCIUM 8.6 mg/dL (8.2-10.2); CARBON DIOXIDE 26 mmol/L (23-31); CHLORIDE 97 mmol/L (98-107); CREATINE KINASE 45 U/L; CREATININE 1.18 mg/dL (0.60-1.30); GLUCOSE 304 mg/dL (82-115); SODIUM 134 mmol/L (136-145); TOTAL PROTEIN 6.3 g/dL (5.8-8.1)
--- NOTE | 2016-08-22 11:26 | DI ---
EXAM: CHEST FRONTAL VIEW HISTORY: Chest pain. COMPARISON: 08/01/2016 FINDINGS: Heart size remains within normal limits. Circular density over the cardiac silhouette villagomez ggesting previous cardiac valvular repair. Sternotomy wires are noted. No acute infiltrates are see n. There is no consolidation, visible pleural fluid or pneumothorax. Bones reveal no acute fracture . IMPRESSION: No acute cardiopulmonary process.
[2016-08-22] MEDS ORDERED: MEPHYTON PO STA (11:34)
[2016-08-22] MEDS ORDERED: SODIUM CHLORIDE 300 ML IV STA (11:51)
[2016-08-22 12:05] VITALS: BP 101/68; TEMP 97.4
[2016-08-22 19:31] LABS: OCCULT BLOOD INTERNAL QC 2 INTERNAL QC VALID; OCCULT BLOOD INTERNAL QC 3 INTERNAL QC VALID; OCCULT BLOOD SAMPLE 2 NO SPECIMEN RECEIVED (NEGATIVE); OCCULT BLOOD SAMPLE 3 NO SPECIMEN RECEIVED (NEGATIVE)
== END 2016-08-22 12:45 | disposition short-term general hospital (02) ==
LOC: ED 10:21
DX: K92.1 Melena (principal); R06.02 Shortness of breath; E11.9 Type 2 diabetes mellitus without complications; Z79.01 Long term (current) use of anticoagulants; Z79.899 Other long term (current) drug therapy
CPT/HCPCS: 36415; 80053; 82272; 82550; 82803; 83880; 84484; 85025; 85610; 86850; 86900; 93005; 93010; 96360; 96361; 99285

== ENCOUNTER 2016-08-22 12:52 | Outpatient (CLI) ==
[2016-08-22 10:35] VITALS: BMI 26.3
== END 2016-08-22 12:53 ==
LOC: AMBL 12:52
PROVIDERS: ATTEND Emergency Medicine
DX: K92.2 Gastrointestinal hemorrhage, unspecified (principal); R53.1 Weakness; Z79.01 Long term (current) use of anticoagulants

== ENCOUNTER 2016-08-31 09:21 | Outpatient (CLI) ==
[2016-08-31 09:42] LABS: BASOPHILS % (AUTO) 0.6 % (0.0-3.0); EOSINOPHILS # (AUTO) 0.2 K/ul (0.0-0.7); EOSINOPHILS % (AUTO) 3.5 % (0.0-7.0); HEMATOCRIT 27.4 % (37.0-47.0); HEMOGLOBIN 9.1 g/dl (12.0-16.0); IMMATURE GRANULOCYTE % (AUTO) 0.6 % (0.0-5.0); LYMPHOCYTES # (AUTO) 1.5 K/uL (0.60-3.4); LYMPHOCYTES % (AUTO) 27.8 (10.0-50.0); MEAN CORPUSCULAR HEMOGLOBIN 26.7 pg (27.0-31.0); MEAN CORPUSCULAR HGB CONC 33.2 (31.8-35.4); MEAN CORPUSCULAR VOLUME 80.4 fl (81.0-99.0); MONOCYTES # (AUTO) 0.5 K/uL (0.4-2.0); MONOCYTES % (AUTO) 9.2 (0-10); NEUTROPHILS # (AUTO) 3.2 K/ul (2.0-6.9); NEUTROPHILS % (AUTO) 58.3; PLATELET COUNT 252 10^3/uL (140-440); RED BLOOD COUNT 3.41 10^6/ul (4.20-5.40); WHITE BLOOD COUNT 5.43 K/ul (4.6-10.2)
== END 2016-08-31 09:22 | disposition home or self-care (01) ==
LOC: LAB 09:21
PROVIDERS: ATTEND Internal Medicine
DX: D64.9 Anemia, unspecified (principal)
CPT/HCPCS: 36415; 85025

== ENCOUNTER 2016-09-29 09:02 | Outpatient (CLI) ==
[2016-09-29 09:21] LABS: BASOPHILS % (AUTO) 0.6 % (0.0-3.0); EOSINOPHILS # (AUTO) 0.2 K/ul (0.0-0.7); EOSINOPHILS % (AUTO) 2.8 % (0.0-7.0); HEMATOCRIT 25.9 % (37.0-47.0); HEMOGLOBIN 8.4 g/dl (12.0-16.0); IMMATURE GRANULOCYTE % (AUTO) 0.5 % (0.0-5.0); LYMPHOCYTES # (AUTO) 1.4 K/uL (0.60-3.4); LYMPHOCYTES % (AUTO) 21.8 (10.0-50.0); MEAN CORPUSCULAR HEMOGLOBIN 24.8 pg (27.0-31.0); MEAN CORPUSCULAR HGB CONC 32.4 (31.8-35.4); MEAN CORPUSCULAR VOLUME 76.4 fl (81.0-99.0); MONOCYTES # (AUTO) 0.5 K/uL (0.4-2.0); MONOCYTES % (AUTO) 8.3 (0-10); NEUTROPHILS # (AUTO) 4.2 K/ul (2.0-6.9); PLATELET COUNT 245 10^3/uL (140-440); RED BLOOD COUNT 3.39 10^6/ul (4.20-5.40); WHITE BLOOD COUNT 6.39 K/ul (4.6-10.2)
== END 2016-09-29 09:03 | disposition home or self-care (01) ==
LOC: LAB 09:02
PROVIDERS: ATTEND Internal Medicine
DX: D64.9 Anemia, unspecified (principal)
CPT/HCPCS: 36415; 85025

== ENCOUNTER 2016-09-30 08:48 | Outpatient (CLI) ==
[2016-09-30 13:16] VITALS: BP 132/70; TEMP 97.3
== END 2016-09-30 08:49 | disposition home or self-care (01) ==
LOC: LAB 08:48
PROVIDERS: ATTEND Internal Medicine
DX: D64.9 Anemia, unspecified (principal)
CPT/HCPCS: 36415; 36430; 86850; 86900; 86922

== ENCOUNTER 2016-10-03 10:29 | Outpatient (CLI) ==
[2016-10-03 10:53] LABS: BASOPHILS % (AUTO) 0.4 % (0.0-3.0); EOSINOPHILS # (AUTO) 0.2 K/ul (0.0-0.7); EOSINOPHILS % (AUTO) 3.8 % (0.0-7.0); HEMOGLOBIN 9.3 g/dl (12.0-16.0); IMMATURE GRANULOCYTE % (AUTO) 0.2 % (0.0-5.0); LYMPHOCYTES # (AUTO) 1.6 K/uL (0.60-3.4); LYMPHOCYTES % (AUTO) 29.9 (10.0-50.0); MEAN CORPUSCULAR HEMOGLOBIN 24.9 pg (27.0-31.0); MEAN CORPUSCULAR HGB CONC 32.1 (31.8-35.4); MEAN CORPUSCULAR VOLUME 77.7 fl (81.0-99.0); MONOCYTES # (AUTO) 0.5 K/uL (0.4-2.0); MONOCYTES % (AUTO) 9.1 (0-10); NEUTROPHILS % (AUTO) 56.6; PLATELET COUNT 230 10^3/uL (140-440); RED BLOOD COUNT 3.73 10^6/ul (4.20-5.40); WHITE BLOOD COUNT 5.25 K/ul (4.6-10.2)
== END 2016-10-03 10:30 | disposition home or self-care (01) ==
LOC: LAB 10:29
PROVIDERS: ATTEND Internal Medicine
DX: D64.9 Anemia, unspecified (principal)
CPT/HCPCS: 36415; 85025

== ENCOUNTER 2016-10-06 08:42 | Outpatient (CLI) ==
[2016-10-06 09:31] LABS: BASOPHILS % (AUTO) 0.6 % (0.0-3.0); EOSINOPHILS # (AUTO) 0.2 K/ul (0.0-0.7); EOSINOPHILS % (AUTO) 2.7 % (0.0-7.0); HEMATOCRIT 29.1 % (37.0-47.0); HEMOGLOBIN 9.5 g/dl (12.0-16.0); IMMATURE GRANULOCYTE % (AUTO) 0.2 % (0.0-5.0); LYMPHOCYTES # (AUTO) 1.3 K/uL (0.60-3.4); LYMPHOCYTES % (AUTO) 19.2 (10.0-50.0); MEAN CORPUSCULAR HEMOGLOBIN 24.7 pg (27.0-31.0); MEAN CORPUSCULAR HGB CONC 32.6 (31.8-35.4); MEAN CORPUSCULAR VOLUME 75.8 fl (81.0-99.0); MONOCYTES # (AUTO) 0.5 K/uL (0.4-2.0); MONOCYTES % (AUTO) 7.6 (0-10); NEUTROPHILS # (AUTO) 4.6 K/ul (2.0-6.9); NEUTROPHILS % (AUTO) 69.7; PLATELET COUNT 241 10^3/uL (140-440); RED BLOOD COUNT 3.84 10^6/ul (4.20-5.40); WHITE BLOOD COUNT 6.57 K/ul (4.6-10.2)
== END 2016-10-06 08:43 | disposition home or self-care (01) ==
LOC: LAB 08:42
PROVIDERS: ATTEND Internal Medicine
DX: D64.9 Anemia, unspecified (principal)
CPT/HCPCS: 36415; 85025

== ENCOUNTER 2016-10-13 08:33 | Outpatient (CLI) ==
[2016-10-13 08:46] LABS: BASOPHILS % (AUTO) 0.4 % (0.0-3.0); EOSINOPHILS # (AUTO) 0.2 K/ul (0.0-0.7); EOSINOPHILS % (AUTO) 4.2 % (0.0-7.0); HEMATOCRIT 28.8 % (37.0-47.0); HEMOGLOBIN 9.4 g/dl (12.0-16.0); IMMATURE GRANULOCYTE % (AUTO) 0.4 % (0.0-5.0); LYMPHOCYTES # (AUTO) 1.4 K/uL (0.60-3.4); LYMPHOCYTES % (AUTO) 29.8 (10.0-50.0); MEAN CORPUSCULAR HEMOGLOBIN 24.6 pg (27.0-31.0); MEAN CORPUSCULAR HGB CONC 32.6 (31.8-35.4); MEAN CORPUSCULAR VOLUME 75.4 fl (81.0-99.0); MONOCYTES # (AUTO) 0.4 K/uL (0.4-2.0); MONOCYTES % (AUTO) 8.6 (0-10); NEUTROPHILS # (AUTO) 2.6 K/ul (2.0-6.9); NEUTROPHILS % (AUTO) 56.6; PLATELET COUNT 218 10^3/uL (140-440); RED BLOOD COUNT 3.82 10^6/ul (4.20-5.40); WHITE BLOOD COUNT 4.56 K/ul (4.6-10.2)
== END 2016-10-13 08:34 | disposition home or self-care (01) ==
LOC: LAB 08:33
PROVIDERS: ATTEND Internal Medicine
DX: D64.9 Anemia, unspecified (principal)
CPT/HCPCS: 36415; 85025

== ENCOUNTER 2016-10-20 08:23 | Outpatient (CLI) ==
[2016-10-20 08:35] LABS: BASOPHILS % (AUTO) 0.5 % (0.0-3.0); EOSINOPHILS # (AUTO) 0.2 K/ul (0.0-0.7); HEMATOCRIT 28.6 % (37.0-47.0); HEMOGLOBIN 9.3 g/dl (12.0-16.0); IMMATURE GRANULOCYTE % (AUTO) 0.3 % (0.0-5.0); LYMPHOCYTES # (AUTO) 1.4 K/uL (0.60-3.4); LYMPHOCYTES % (AUTO) 22.9 (10.0-50.0); MEAN CORPUSCULAR HEMOGLOBIN 24.5 pg (27.0-31.0); MEAN CORPUSCULAR HGB CONC 32.5 (31.8-35.4); MEAN CORPUSCULAR VOLUME 75.5 fl (81.0-99.0); MONOCYTES # (AUTO) 0.6 K/uL (0.4-2.0); MONOCYTES % (AUTO) 9.5 (0-10); NEUTROPHILS # (AUTO) 3.8 K/ul (2.0-6.9); NEUTROPHILS % (AUTO) 63.8; PLATELET COUNT 212 10^3/uL (140-440); RED BLOOD COUNT 3.79 10^6/ul (4.20-5.40); WHITE BLOOD COUNT 5.97 K/ul (4.6-10.2)
== END 2016-10-20 08:24 | disposition home or self-care (01) ==
LOC: LAB 08:23
PROVIDERS: ATTEND Internal Medicine
DX: D64.9 Anemia, unspecified (principal)
CPT/HCPCS: 36415; 85025

== ENCOUNTER 2016-11-03 07:37 | Outpatient (CLI) ==
[2016-11-03 07:59] LABS: BASOPHILS % (AUTO) 0.5 % (0.0-3.0); EOSINOPHILS # (AUTO) 0.2 K/ul (0.0-0.7); EOSINOPHILS % (AUTO) 3.5 % (0.0-7.0); HEMATOCRIT 27.8 % (37.0-47.0); HEMOGLOBIN 8.7 g/dl (12.0-16.0); IMMATURE GRANULOCYTE % (AUTO) 0.3 % (0.0-5.0); LYMPHOCYTES # (AUTO) 1.3 K/uL (0.60-3.4); LYMPHOCYTES % (AUTO) 21.6 (10.0-50.0); MEAN CORPUSCULAR HEMOGLOBIN 23.3 pg (27.0-31.0); MEAN CORPUSCULAR HGB CONC 31.3 (31.8-35.4); MEAN CORPUSCULAR VOLUME 74.3 fl (81.0-99.0); MONOCYTES # (AUTO) 0.5 K/uL (0.4-2.0); MONOCYTES % (AUTO) 8.7 (0-10); NEUTROPHILS % (AUTO) 65.4; PLATELET COUNT 212 10^3/uL (140-440); RED BLOOD COUNT 3.74 10^6/ul (4.20-5.40); WHITE BLOOD COUNT 6.07 K/ul (4.6-10.2)
== END 2016-11-03 07:38 | disposition home or self-care (01) ==
LOC: LAB 07:37
PROVIDERS: ATTEND Internal Medicine
DX: D64.9 Anemia, unspecified (principal)
CPT/HCPCS: 36415; 85025

== ENCOUNTER 2016-11-07 07:41 | Outpatient (CLI) ==
[2016-11-07 07:51] LABS: BASOPHILS % (AUTO) 0.4 % (0.0-3.0); EOSINOPHILS # (AUTO) 0.2 K/ul (0.0-0.7); EOSINOPHILS % (AUTO) 2.3 % (0.0-7.0); HEMATOCRIT 29.2 % (37.0-47.0); HEMOGLOBIN 9.4 g/dl (12.0-16.0); IMMATURE GRANULOCYTE % (AUTO) 0.4 % (0.0-5.0); LYMPHOCYTES # (AUTO) 1.5 K/uL (0.60-3.4); LYMPHOCYTES % (AUTO) 19.7 (10.0-50.0); MEAN CORPUSCULAR HEMOGLOBIN 23.7 pg (27.0-31.0); MEAN CORPUSCULAR HGB CONC 32.2 (31.8-35.4); MEAN CORPUSCULAR VOLUME 73.7 fl (81.0-99.0); MONOCYTES # (AUTO) 0.6 K/uL (0.4-2.0); MONOCYTES % (AUTO) 8.4 (0-10); NEUTROPHILS # (AUTO) 5.2 K/ul (2.0-6.9); NEUTROPHILS % (AUTO) 68.8; PLATELET COUNT 224 10^3/uL (140-440); RED BLOOD COUNT 3.96 10^6/ul (4.20-5.40); WHITE BLOOD COUNT 7.51 K/ul (4.6-10.2)
== END 2016-11-07 07:42 | disposition home or self-care (01) ==
LOC: LAB 07:41
PROVIDERS: ATTEND Internal Medicine
DX: D64.9 Anemia, unspecified (principal)
CPT/HCPCS: 36415; 85025

== ENCOUNTER 2016-11-17 07:46 | Outpatient (CLI) ==
[2016-11-17 08:01] LABS: BASOPHILS % (AUTO) 0.4 % (0.0-3.0); EOSINOPHILS # (AUTO) 0.2 K/ul (0.0-0.7); EOSINOPHILS % (AUTO) 4.1 % (0.0-7.0); HEMATOCRIT 28.7 % (37.0-47.0); IMMATURE GRANULOCYTE % (AUTO) 0.4 % (0.0-5.0); LYMPHOCYTES # (AUTO) 1.2 K/uL (0.60-3.4); LYMPHOCYTES % (AUTO) 25.6 (10.0-50.0); MEAN CORPUSCULAR HGB CONC 31.4 (31.8-35.4); MEAN CORPUSCULAR VOLUME 73.4 fl (81.0-99.0); MONOCYTES # (AUTO) 0.4 K/uL (0.4-2.0); MONOCYTES % (AUTO) 9.5 (0-10); NEUTROPHILS # (AUTO) 2.8 K/ul (2.0-6.9); PLATELET COUNT 206 10^3/uL (140-440); RED BLOOD COUNT 3.91 10^6/ul (4.20-5.40); WHITE BLOOD COUNT 4.61 K/ul (4.6-10.2)
== END 2016-11-17 07:47 | disposition home or self-care (01) ==
LOC: LAB 07:46
PROVIDERS: ATTEND Internal Medicine
DX: D64.9 Anemia, unspecified (principal)
CPT/HCPCS: 36415; 85025

== ENCOUNTER 2016-11-24 07:46 | Outpatient (CLI) ==
[2016-11-24 08:16] LABS: BASOPHILS % (AUTO) 0.5 % (0.0-3.0); EOSINOPHILS # (AUTO) 0.2 K/ul (0.0-0.7); EOSINOPHILS % (AUTO) 3.4 % (0.0-7.0); HEMATOCRIT 29.5 % (37.0-47.0); HEMOGLOBIN 9.3 g/dl (12.0-16.0); IMMATURE GRANULOCYTE % (AUTO) 0.3 % (0.0-5.0); LYMPHOCYTES # (AUTO) 1.3 K/uL (0.60-3.4); LYMPHOCYTES % (AUTO) 21.3 (10.0-50.0); MEAN CORPUSCULAR HEMOGLOBIN 22.9 pg (27.0-31.0); MEAN CORPUSCULAR HGB CONC 31.5 (31.8-35.4); MEAN CORPUSCULAR VOLUME 72.5 fl (81.0-99.0); MONOCYTES # (AUTO) 0.5 K/uL (0.4-2.0); MONOCYTES % (AUTO) 8.2 (0-10); NEUTROPHILS # (AUTO) 3.9 K/ul (2.0-6.9); NEUTROPHILS % (AUTO) 66.3; PLATELET COUNT 236 10^3/uL (140-440); RED BLOOD COUNT 4.07 10^6/ul (4.20-5.40); WHITE BLOOD COUNT 5.87 K/ul (4.6-10.2)
== END 2016-11-24 07:47 | disposition home or self-care (01) ==
LOC: LAB 07:46
PROVIDERS: ATTEND Internal Medicine
DX: D64.9 Anemia, unspecified (principal)
CPT/HCPCS: 36415; 85025

== ENCOUNTER 2016-12-08 07:41 | Outpatient (CLI) ==
[2016-12-08 08:02] LABS: BASOPHILS % (AUTO) 0.3 % (0.0-3.0); EOSINOPHILS # (AUTO) 0.3 K/ul (0.0-0.7); EOSINOPHILS % (AUTO) 4.1 % (0.0-7.0); HEMATOCRIT 31.4 % (37.0-47.0); HEMOGLOBIN 9.6 g/dl (12.0-16.0); IMMATURE GRANULOCYTE % (AUTO) 0.2 % (0.0-5.0); LYMPHOCYTES # (AUTO) 1.5 K/uL (0.60-3.4); LYMPHOCYTES % (AUTO) 24.5 (10.0-50.0); MEAN CORPUSCULAR HEMOGLOBIN 22.2 pg (27.0-31.0); MEAN CORPUSCULAR HGB CONC 30.6 (31.8-35.4); MEAN CORPUSCULAR VOLUME 72.7 fl (81.0-99.0); MONOCYTES # (AUTO) 0.5 K/uL (0.4-2.0); MONOCYTES % (AUTO) 8.8 (0-10); NEUTROPHILS # (AUTO) 3.7 K/ul (2.0-6.9); NEUTROPHILS % (AUTO) 62.1; PLATELET COUNT 226 10^3/uL (140-440); RED BLOOD COUNT 4.32 10^6/ul (4.20-5.40); WHITE BLOOD COUNT 6.03 K/ul (4.6-10.2)
== END 2016-12-08 07:42 | disposition home or self-care (01) ==
LOC: LAB 07:41
PROVIDERS: ATTEND Internal Medicine
DX: D64.9 Anemia, unspecified (principal)
CPT/HCPCS: 36415; 85025

== ENCOUNTER 2017-01-09 07:51 | Outpatient (CLI) ==
[2017-01-09 08:02] LABS: BASOPHILS % (AUTO) 0.7 % (0.0-3.0); EOSINOPHILS # (AUTO) 0.2 K/ul (0.0-0.7); EOSINOPHILS % (AUTO) 3.2 % (0.0-7.0); HEMOGLOBIN 10.6 g/dl (12.0-16.0); IMMATURE GRANULOCYTE % (AUTO) 0.3 % (0.0-5.0); LYMPHOCYTES # (AUTO) 1.5 K/uL (0.60-3.4); MEAN CORPUSCULAR HEMOGLOBIN 23.2 pg (27.0-31.0); MEAN CORPUSCULAR HGB CONC 32.1 (31.8-35.4); MEAN CORPUSCULAR VOLUME 72.4 fl (81.0-99.0); MONOCYTES # (AUTO) 0.5 K/uL (0.4-2.0); MONOCYTES % (AUTO) 8.3 (0-10); NEUTROPHILS # (AUTO) 3.7 K/ul (2.0-6.9); NEUTROPHILS % (AUTO) 62.5; PLATELET COUNT 205 10^3/uL (140-440); RED BLOOD COUNT 4.56 10^6/ul (4.20-5.40); WHITE BLOOD COUNT 5.92 K/ul (4.6-10.2)
== END 2017-01-09 07:52 | disposition home or self-care (01) ==
LOC: LAB 07:51
PROVIDERS: ATTEND Internal Medicine
DX: D64.9 Anemia, unspecified (principal)
CPT/HCPCS: 36415; 85025

== ENCOUNTER 2017-03-13 07:33 | Outpatient (CLI) ==
[2017-03-13 07:46] LABS: BASOPHILS % (AUTO) 0.6 % (0.0-3.0); EOSINOPHILS # (AUTO) 0.3 K/ul (0.0-0.7); EOSINOPHILS % (AUTO) 5.8 % (0.0-7.0); HEMATOCRIT 32.5 % (37.0-47.0); HEMOGLOBIN 10.8 g/dl (12.0-16.0); IMMATURE GRANULOCYTE % (AUTO) 0.2 % (0.0-5.0); LYMPHOCYTES # (AUTO) 1.3 K/uL (0.60-3.4); LYMPHOCYTES % (AUTO) 27.4 (10.0-50.0); MEAN CORPUSCULAR HEMOGLOBIN 25.4 pg (27.0-31.0); MEAN CORPUSCULAR HGB CONC 33.2 (31.8-35.4); MEAN CORPUSCULAR VOLUME 76.5 fl (81.0-99.0); MONOCYTES # (AUTO) 0.4 K/uL (0.4-2.0); MONOCYTES % (AUTO) 9.3 (0-10); NEUTROPHILS # (AUTO) 2.6 K/ul (2.0-6.9); NEUTROPHILS % (AUTO) 56.7; PLATELET COUNT 191 10^3/uL (140-440); RED BLOOD COUNT 4.25 10^6/ul (4.20-5.40); WHITE BLOOD COUNT 4.64 K/ul (4.6-10.2)
== END 2017-03-13 07:34 | disposition home or self-care (01) ==
LOC: LAB 07:33
PROVIDERS: ATTEND Internal Medicine
DX: D64.9 Anemia, unspecified (principal)
CPT/HCPCS: 36415; 85025

== ENCOUNTER 2018-01-04 09:40 | Outpatient (CLI) ==
--- NOTE | 2018-01-04 10:42 | CT ---
EXAM: CT left hip without contrast. HISTORY: Left hip pain. COMPARISON: Pelvic CT 08/01/2016. TECHNIQUE: Multiple axial images of the left hip were obtained without intravenous contrast. Images were reformatted in the coronal and sagittal plane. FINDINGS: Bone mineralization is decreased. No fracture or or dislocation identified. There is mode rate joint space narrowing, subchondral sclerosis, subchondral cyst and marginal osteophyte formation at the left hip. No erosions are seen. Adjacent soft tissues are unremarkable. Limited images of the lower pelvis demonstrate no significant abnormality. IMPRESSION: Moderate left hip osteoarthritis.
== END 2018-01-04 09:41 | disposition home or self-care (01) ==
LOC: RAD 09:40
PROVIDERS: ATTEND Internal Medicine
DX: M25.552 Pain in left hip (principal)

== ENCOUNTER 2018-04-27 11:16 | Inpatient (IN) ==
[2018-04-27] MEDS ORDERED: VISTARIL INJ IM PRN (11:39)
[2018-04-27] MEDS ORDERED: DECADRON 4 MG/ML SDV IM STA ×2 (11:39→12:49)
[2018-04-27] MEDS ORDERED: NITROSTAT SL PRN (11:39)
[2018-04-27] MEDS ORDERED: TYLENOL PO PRN (11:39)
[2018-04-27] MEDS ORDERED: MORPHINE 4 MG/ML VIAL IVP PRN (11:39)
[2018-04-27] MEDS ORDERED: ATROPINE SULFATE PFS IVP PRN (11:39)
[2018-04-27] MEDS ORDERED: NORCO 5-325 PO STA (11:39)
[2018-04-27] MEDS ORDERED: ZOFRAN 4 MG/2 ML IVP PRN (11:39)
[2018-04-27 11:56] VITALS: BMI 25.2
[2018-04-27] MEDS: ZANAFLEX PO SCH ×2 (12:17→20:33)
[2018-04-27] MEDS: TORADOL IVP SCH ×2 (12:17→20:32)
--- NOTE | 2018-04-27 12:58 | DI ---
EXAM: CHEST FRONTAL VIEW HISTORY: Back pain. COMPARISON: 08/22/2016 FINDINGS: Heart size remains within normal limits. Previous cardiac valvular repair is suggested. Sternotomy wires are noted. No acute infiltrates are seen. No vascular congestion. There is no cons olidation, visible pleural fluid or pneumothorax. Bones reveal no acute fracture. Details of the spin e are not optimally seen on this exam. IMPRESSION: 1. No acute process identified.
--- NOTE | 2018-04-27 15:57 | DI ---
EXAM: Five views of the lumbar spine. History: Lower back pain and right sided sciatica Comparison: CT lumbar spine 04/27/2018 Findings: Spinal stimulator device is seen. Osteopenia. No acute fracture. 3 mm anterolisthesis o f L3 on L4. Moderate to severe disc space narrowing at L3-L4, L4-L5 and L5-S1 with endplate sclerosi s and osteophyte formation. Moderate disc space narrowing at L2-L3. Severe facet hypertrophy within the lower lumbar spine with partial osseous fusion. Impression: 1. No acute fracture. 2. Grade 1 anterolisthesis of L3 on L4. 3. Degenerative changes.
--- NOTE | 2018-04-27 16:51 | CT ---
EXAM: CT of the lumbar spine without contrast History: Lower back pain. Technique: Multiplanar CT images through the lumbar spine were obtained without the administration o f IV contrast Findings: Spinal stimulator device. Atherosclerotic vascular calcifications. Osteopenia. No acute fracture. 3 mm anterolisthesis of L3 on L4. Moderate to severe disc space dave rowing at L4-L5 and L5-S1. Moderate disc space narrowing at L3-L4 with endplate sclerosis and osteop hyte formation. Moderate disc space narrowing at L2-L3. There is osseous fusion of the facet joints bilaterally from L4-S1. T12-L1: No significant bony central canal stenosis or bony neural foraminal narrowing. L1-L2: No significant bony central canal stenosis. Mild to moderate bilateral bony neural foraminal narrowing secondary to ligamentous and facet hypertrophy. L2-L3: Modest disc protrusion effacing anterior thecal sac with moderate central canal stenosis. Mo derate to severe bilateral bony neural foraminal narrowing secondary to ligamentous and facet hypertr ophy and worse on the right. L3-L4: Moderate to severe paracentral disc protrusion effacing anterior thecal sac with moderate to severe central canal stenosis and severe right bony neural foraminal narrowing. Moderate left bony n eural foraminal narrowing secondary to ligamentous and facet hypertrophy. L4-L5: No significant bony central canal stenosis. Moderate bilateral bony neural foraminal narrowi ng secondary to ligamentous and facet hypertrophy. Posterior laminectomy changes L5-S1: No significant bony central canal stenosis. Moderate bilateral bony neural foraminal narrowin g secondary to ligamentous and facet hypertrophy. Posterior laminectomy changes. Impression: 1. No acute fracture. 2. Grade 1 anterolisthesis of L3 on L4. 3. Degenerative changes with level by level analysis as detailed above and most significant at L3-L4 with moderate to severe central canal stenosis and severe right-sided bony neural foraminal narrowin g.
[2018-04-27] MEDS: COREG PO SCH (17:20)
[2018-04-27] MEDS: GLUCOPHAGE PO SCH (17:20)
[2018-04-27] MEDS: HUMULIN R SUBCUT PRN ×2 (17:24→20:33)
[2018-04-27] MEDS: COUMADIN PO SCH (17:33)
[2018-04-27] MEDS: ZOCOR PO SCH (20:33)
[2018-04-27] MEDS: BETAPACE PO SCH (20:34)
[2018-04-27] MEDS: NORCO 5-325 PO PRN (20:35)
[2018-04-27] MEDS ORDERED: NON-FORMULARY MEDICATION (Metformin Hcl [Metformin Hcl] 1,000 MG) PO SCH (21:00)
[2018-04-27] MEDS ORDERED: SOTALOL HCL 120 MG PO SCH (21:00)
[2018-04-28] MEDS: TORADOL IVP SCH ×3 (05:12→20:43)
[2018-04-28] MEDS: HUMULIN R SUBCUT PRN ×3 (06:00→20:44)
[2018-04-28] MEDS: SYNTHROID PO SCH (06:01)
[2018-04-28] MEDS: PRILOSEC PO SCH (06:01)
[2018-04-28] MEDS: VITAMIN D PO SCH (08:40)
[2018-04-28] MEDS: ZESTRIL PO SCH (08:40)
[2018-04-28] MEDS: ZANAFLEX PO SCH ×2 (08:41→20:47)
[2018-04-28] MEDS: BETAPACE PO SCH ×2 (08:41→20:45)
[2018-04-28] MEDS: GLUCOPHAGE PO SCH ×2 (08:42→16:45)
[2018-04-28] MEDS: MICRO-K CAP PO SCH (08:42)
[2018-04-28] MEDS: ASPIRIN EC PO SCH (08:42)
[2018-04-28] MEDS: FLORASTOR PO SCH (08:42)
[2018-04-28] MEDS: COREG PO SCH ×2 (08:43→16:45)
[2018-04-28] MEDS: NORCO 5-325 PO PRN ×2 (08:48→20:46)
[2018-04-28] MEDS ORDERED: DECADRON 4 MG/ML SDV IM SCH ×2 (09:00)
[2018-04-28] MEDS ORDERED: LOZOL PO SCH (09:00)
[2018-04-28] MEDS ORDERED: POTASSIUM CHLORIDE PO SCH (09:00)
[2018-04-28] MEDS ORDERED: NON-FORMULARY MEDICATION (Cholecalciferol (Vitamin D3) [Vitamin D3] 1,000 UNIT) PO SCH (09:00)
[2018-04-28] MEDS ORDERED: ACIDOPH PARACASEI B LACTIS PO SCH (09:00)
[2018-04-28] MEDS: INDAPAMIDE 1.25 MG PO SCH (10:56)
[2018-04-28] MEDS: COUMADIN PO SCH (16:45)
[2018-04-28] MEDS: ZOCOR PO SCH (20:45)
[2018-04-29] MEDS: TORADOL IVP SCH ×3 (05:37→20:59)
[2018-04-29] MEDS: PRILOSEC PO SCH (05:38)
[2018-04-29] MEDS: SYNTHROID PO SCH (05:38)
[2018-04-29] MEDS: ASPIRIN EC PO SCH (08:50)
[2018-04-29] MEDS: INDAPAMIDE 1.25 MG PO SCH (08:50)
[2018-04-29] MEDS: FLORASTOR PO SCH (08:50)
[2018-04-29] MEDS: MICRO-K CAP PO SCH (08:51)
[2018-04-29] MEDS: VITAMIN D PO SCH (08:51)
[2018-04-29] MEDS: BETAPACE PO SCH ×2 (08:51→20:58)
[2018-04-29] MEDS: ZANAFLEX PO SCH ×2 (08:51→20:59)
[2018-04-29] MEDS: ZESTRIL PO SCH (08:51)
[2018-04-29] MEDS: COREG PO SCH ×2 (08:51→16:35)
[2018-04-29] MEDS: GLUCOPHAGE PO SCH (08:52)
[2018-04-29] MEDS: ZOFRAN 4 MG/2 ML IVP SCH ×2 (13:51→21:07)
[2018-04-29] MEDS: COUMADIN PO SCH (16:36)
[2018-04-29] MEDS: ZOCOR PO SCH (20:58)
[2018-04-30] MEDS: NORCO 5-325 PO PRN (00:53)
[2018-04-30] MEDS: TORADOL IVP SCH ×3 (05:33→20:17)
[2018-04-30] MEDS: SYNTHROID PO SCH (05:33)
[2018-04-30] MEDS: PRILOSEC PO SCH (05:33)
[2018-04-30] MEDS: ZESTRIL PO SCH (09:43)
[2018-04-30] MEDS: VITAMIN D PO SCH (09:43)
[2018-04-30] MEDS: COREG PO SCH ×2 (09:43→17:35)
[2018-04-30] MEDS: BETAPACE PO SCH ×2 (09:44→20:21)
[2018-04-30] MEDS: MICRO-K CAP PO SCH (09:45)
[2018-04-30] MEDS: ZANAFLEX PO SCH ×2 (09:45→20:23)
[2018-04-30] MEDS: FLORASTOR PO SCH (09:46)
[2018-04-30] MEDS: ZOFRAN 4 MG/2 ML IVP SCH ×2 (09:47→20:17)
[2018-04-30] MEDS: INDAPAMIDE 1.25 MG PO SCH (09:48)
[2018-04-30] MEDS: SODIUM CHLORIDE 1,000 ML IV SCH ×2 (09:49→20:17)
--- NOTE | 2018-04-30 09:53 | PCM.PROG ---
Attending Provider: ATTENDING PROVIDER: Dr. WILLOW BOGGS This patient is seen with Kristina Hamilton, Nurse Practitioner. DATE OF SERVICE: 04/30/18 SUBJECTIVE: This 73 year old WHITE/ F was hospitalized 04/27/18. The patient is sitting in the chair comfortably. Back pain has significantly improved. She has been able to walk and sit comfortably. She started complaining of nausea, inability to eat, which has been present for 1 to 2 months. REVIEW OF SYSTEMS: CONSTITUTIONAL: No night sweats. No fatigue, malaise, lethargy. No fever or chills. HEENT: Eyes: No visual changes. No eye pain. No eye discharge. ENT: No runny nose. No epistaxis. No sinus pain. No odynophagia. No congestion. RESPIRATORY: No cough, no congestion. No hemoptysis. No shortness of breath. CARDIOVASCULAR: No angina symptoms. No CHF symptoms. No atypical chest pain for CAD. No palpitations. No orthopnea.. GASTROINTESTINAL: Decreased appetite, abdominal pain and nausea. No vomiting. No diarrhea or constipation. No hematemesis. No hematochezia. GENITOURINARY: No urgency. No frequency. No dysuria. No hematuria. No obstructive symptoms. No discharge. No pain. No significant abnormal bleeding. MUSCULOSKELETAL: Back pain and leg weakness. NEUROLOGICAL: Awake, alert, oriented to time, place and person. No headache. No neck pain. No syncope. No seizures. No dizziness. PSYCHIATRIC: Not anxious. No depression. No suicidal thoughts. No homicidal thoughts. SKIN: No rash. No lesions. No wounds. ENDOCRINE: No unexplained weight loss. No weight gain. HEMATOLOGIC/LYMPHATIC: No anemia. No purpura. No petechiae. No prolonged or excessive bleeding. No palpable lymph nodes. PHYSICAL EXAMINATION: GENERAL: The patient is awake, alert and oriented, sitting in chair in no distress. VITAL SIGNS: Temperature 97.9 F, Pulse 64, Respiratory Rate 14, BP 135/83, Pulse Ox 99% HEENT: Head normocephalic, atraumatic. Eyes: Extraocular muscles are intact. Pupils are equal, round and reactive to light and accommodation. Ears: No lesions. Nose appeared normal. Throat: No exudate or erythema. NECK: Supple. No JVD, no carotid bruit. No lymphadenopathy or thyromegaly. LUNGS: Clear to auscultation. Percussion note normal. Chest symmetrical. HEART: S1, S2, no S3. No murmurs. No cyanosis or clubbing. No ascites. Pulses: Dorsalis pedis and posterior tibial pulses +1 to +2 both sides. ABDOMEN: Soft. Non-tender. Bowel sounds active. No CVA tenderness. No mass felt. EXTREMITIES: No edema. Full range of motion of all extremities, equal. NEUROLOGIC: No focal deficit. Cranial nerves II through XII are grossly intact. No headache, no double vision or headache. SKIN: Not dry. Intact. Turgor-normal. LYMPHATIC: No palpable lymph nodes/no lymphedema. MUSCULOSKELETAL: Normal joints with no swelling. Muscle tone is normal. LAB REVIEW: 04/30/18 04:17 04/30/18 04:17 04/30/18 04:17: Sodium 125.3 L, Potassium 3.59, Chloride 88.0 L, Carbon Dioxide 31.4 H, Anion Gap 9.49, BUN 36.7 H, Creatinine 1.06, Estimated GFR (MDRD) 51.00 , BUN/Creatinine Ratio 34.62, Glucose 100.7, Calcium 8.73, Total Bilirubin 0.36 , AST 22.3, ALT 13.7, Alkaline Phosphatase 25.3 L, Total Protein 5.79 L, Albumin 3.34 L, Globulin 2.45, Albumin/Globulin Ratio 1.36 04/30/18 04:17: PT 30.2 H, INR 3.12 04/30/18 04:17: WBC 6.71, RBC 3.49 L, Hgb 10.1 L, Hct 27.9 L, MCV 79.9 L, MCH 28.9, MCHC 36.2 H, RDW Coeff of Zeus 12.9, Plt Count 188, Immature Gran % (Auto) 0.3, Neut % (Auto) 56.6, Lymph % (Auto) 30.3, Baldwin % (Auto) 11.5 H, Eos % (Auto ) 1.0, Baso % (Auto) 0.3, Immature Gran # (Auto) 0.0, Neut # (Auto) 3.8, Lymph # (Auto) 2.0, Baldwin # (Auto) 0.8, Eos # (Auto) 0.1, Baso # (Auto) 0.0 ASSESSMENT: 1. INTRACTABLE BACK PAIN - IMPROVED 2. RIGHT SCIATICA 3. SEVERE DJD L SPINE L3-L4 4. CHRONIC NAUSEA WITH LOSS OF APPETITE PLAN: 1. IV fluids at 100 mL/hr x24hr 2. CT scan of the abdomen, without contrast 3. D/C Prilosec 4. Begin Protonix 40 mg p.o. b.i.d. 5. Hold Coumadin Plan and coordination of the patient's care discussed in the presence of Shell Mold Bonder and nurse. CONDITION: Stable SCRIBED BY: JIGNESH REDDY Commercial Credit Analyst scribed while in presence of service performed by Dr. Boggs/Kristina Hamilton APRN on 04/30/18 ([id number])
--- NOTE | 2018-04-30 12:46 | CT ---
EXAM: CT abdomen with and without contrast. CT pelvis with and without contrast. HISTORY: Abdominal pain and nausea. COMPARISON: 08/01/2016. TECHNIQUE: Multiple axial images of the abdomen and pelvis were obtained prior to and following intr avenous administration of 100 mL of Visipaque 320, low osmolar. Images reformatted in the sagittal a nd coronal plane. FINDINGS: There has been previous sternotomy. Lung bases are clear. Thoracic spinal cord stimulato r noted. Degenerative changes present in the spine and hips. The liver, gallbladder, pancreas, spleen, adrenal glands, and kidneys are without acute abnormality. There is no evidence for bowel obstruction or acute inflammation. The appendix is not seen. Uterus demonstrates possible partially calcified fibroid on axial image 68. Urinary bladder is unremarkable . Phleboliths noted in the pelvis. No free fluid, free air or lymphadenopathy identified. Atherosc lerotic calcifications are present. IMPRESSION: No acute abnormality within the abdomen or pelvis.
[2018-04-30] MEDS: PROTONIX PO SCH (17:35)
[2018-04-30] MEDS: ZOCOR PO SCH (20:22)
[2018-05-01] MEDS: TORADOL IVP SCH (05:43)
[2018-05-01] MEDS: SYNTHROID PO SCH (05:43)
[2018-05-01] MEDS: PROTONIX PO SCH (05:43)
[2018-05-01] MEDS: SODIUM CHLORIDE 1,000 ML IV SCH (05:47)
[2018-05-01] MEDS: ZESTRIL PO SCH (09:03)
[2018-05-01] MEDS: BETAPACE PO SCH (09:03)
[2018-05-01] MEDS: ZOFRAN 4 MG/2 ML IVP SCH (09:04)
[2018-05-01] MEDS: COREG PO SCH (09:04)
[2018-05-01] MEDS: INDAPAMIDE 1.25 MG PO SCH (09:04)
[2018-05-01] MEDS: MICRO-K CAP PO SCH (09:04)
[2018-05-01] MEDS: VITAMIN D PO SCH (09:04)
[2018-05-01] MEDS: ZANAFLEX PO SCH (09:04)
[2018-05-01] MEDS: FLORASTOR PO SCH (09:05)
--- NOTE | 2018-05-01 09:53 | PCM.PROG ---
Attending Provider: ATTENDING PROVIDER: Dr. WILLOW BOGGS DATE OF SERVICE: 05/01/18 SUBJECTIVE: This 73 year old WHITE/ F was hospitalized 04/27/18 with back pain, right sciatica. Condition has improved and has much less pain. She is able to tolerate other problems, colitis type symptoms. Stool is guaiac positive. No active GI bleed. The patient will have appointment with Dr. Hitchcock for colonoscopy. Last one was done in 2014. She is due for another one in the Spring of next year. The patient has mild back pain and hip pain but much better. Her stomach feels better, less diarrhea. REVIEW OF SYSTEMS: CONSTITUTIONAL: No night sweats. No fatigue, malaise, lethargy. No fever or chills. HEENT: Eyes: No visual changes. No eye pain. No eye discharge. ENT: No runny nose. No epistaxis. No sinus pain. No odynophagia. No congestion. RESPIRATORY: No cough, no congestion. No hemoptysis. No shortness of breath. CARDIOVASCULAR: No angina symptoms. No CHF symptoms. No atypical chest pain for CAD. No palpitations. No orthopnea.. GASTROINTESTINAL: No abdominal pain. No nausea or vomiting. No diarrhea or constipation. No hematemesis. No hematochezia. GENITOURINARY: No urgency. No frequency. No dysuria. No hematuria. No obstructive symptoms. No discharge. No pain. No significant abnormal bleeding. MUSCULOSKELETAL: Mild hip and back pain which is much less. NEUROLOGICAL: Awake, alert, oriented to time, place and person. No headache. No neck pain. No syncope. No seizures. No dizziness. PSYCHIATRIC: Not anxious. No depression. No suicidal thoughts. No homicidal thoughts. SKIN: No rash. No lesions. No wounds. ENDOCRINE: No unexplained weight loss. No weight gain. HEMATOLOGIC/LYMPHATIC: No anemia. No purpura. No petechiae. No prolonged or excessive bleeding. No palpable lymph nodes. PHYSICAL EXAMINATION: GENERAL: The patient is awake, alert and oriented, lying in bed in no distress. VITAL SIGNS: Temperature 97.8 F, Pulse 65, Respiratory Rate 17, BP 141/85, Pulse Ox 96% HEENT: Head normocephalic, atraumatic. Eyes: Extraocular muscles are intact. Pupils are equal, round and reactive to light and accommodation. Ears: No lesions. Nose appeared normal. Throat: No exudate or erythema. NECK: Supple. No JVD, no carotid bruit. No lymphadenopathy or thyromegaly. LUNGS: Clear to auscultation. Percussion note normal. Chest symmetrical. HEART: S1, S2, no S3. No murmurs. No cyanosis or clubbing. No ascites. Pulses: Dorsalis pedis and posterior tibial pulses +1 to +2 both sides. ABDOMEN: Soft. Non-tender. Bowel sounds active. No CVA tenderness. No mass felt. EXTREMITIES: No edema. Full range of motion of all extremities, equal. NEUROLOGIC: No focal deficit. Cranial nerves II through XII are grossly intact. No headache, no double vision or headache. SKIN: Warm and dry. Intact. Turgor-normal. LYMPHATIC: No palpable lymph nodes/no lymphedema. MUSCULOSKELETAL: Normal joints with no swelling. Muscle tone is normal. LAB REVIEW: 05/01/18 04:10 05/01/18 04:10 05/01/18 04:10: Sodium 132.0 L, Potassium 3.47 L, Chloride 97.4 L, Carbon Dioxide 29.7, Anion Gap 8.37, BUN 25.8 H, Creatinine 1.07, Estimated GFR (MDRD) 50.00, BUN/Creatinine Ratio 24.11, Glucose 112.0 H, Calcium 8.76, Total Bilirubin 0.41, AST 21.8, ALT 13.1, Alkaline Phosphatase 27.1 L, Total Protein 5.64 L, Albumin 3.30 L, Globulin 2.34, Albumin/Globulin Ratio 1.41 05/01/18 04:10: PT 24.3 H D, INR 2.50 05/01/18 04:10: WBC 6.87, RBC 3.39 L, Hgb 10.0 L, Hct 27.4 L, MCV 80.8 L, MCH 29.5, MCHC 36.5 H, RDW Coeff of Zeus 13.0, Plt Count 184, Immature Gran % (Auto) 0.3, Neut % (Auto) 62.0, Lymph % (Auto) 25.9, Elk % (Auto) 9.5, Eos % (Auto) 2.0, Baso % (Auto) 0.3, Immature Gran # (Auto) 0.0, Neut # (Auto) 4.3, Lymph # ( Auto) 1.8, Elk # (Auto) 0.7, Eos # (Auto) 0.1, Baso # (Auto) 0.0 04/30/18 16:25: Stl Occult Blood (IFOB) Positive, Stool Occult Blood #2 No specimen received, Stool Occult Blood #3 No specimen received ASSESSMENT: 1. BACK PAIN, IMPROVING. 2. RIGHT SCIATICA, IMPROVING 3. ABDOMINAL PAIN WITH NAUSEA, GUAIAC STOOL POSITIVE PLAN: 1. Tramadol 50 mg b.i.d. p.r.n. 2. D/C [place]. 3. Zanaflex at night. 4. [facility] [place], [place]. 5. D/C home today. 6. Will have patient hold Metformin for one week. 7. Will see Dr. Hitchcock as outpatient for positive guaiac stool. Plan and coordination of the patient's care discussed in the presence of Milk Collector and nurse. EDUCATION: CONDITION: SCRIBED BY: JIGNESH REDDY, Eeg Technician scribed while in presence of service performed by Dr. WILLOW BOGGS on 05/01/18 ([id number])
--- NOTE | 2018-05-01 10:18 | CM.DICTOOL ---
ADMISSION: 04/27/18 11:16 DISCHARGE: 05/01/18 DATE OF SERVICE: 05/01/18 FINAL DIAGNOSIS BACK PAIN RIGHT SCIATICA ANTEROLISTHESIS L3-L4, GRADE 1 DEGENERATIVE DISC DISEASE, L-SPINE MODERATE TO SEVERE CENTRAL CANAL STENOSIS, L-SPINE SEVERE RIGHT SIDE BONY NEURAL FORMAINAL NARROWING, L-SPINE ABDOMINAL PAIN WITH NAUSEA INFLUENZA A, 08/04/16 HOSPITALIZATION AT [facility] GASTROENTERITIS CAD S/P CABG, 2010 HISTORY OF ATRIAL FIBRILLATION DYSLIPIDEMIA HYPERTENSION ANEMIA VITAMIN B 12 DEFICIENCY DM, TYPE 2 HYPOTHYROIDISM GERD MITRAL VALVE SURGERY LUMBAR FUSION SURGERY, 1972 AND 1979 PAIN STIMULATOR INSERTION, 2002 LEFT FOOT SURGERY, 2002 AND 2003 CHOLECYSTECTOMY TUBAL LIGATION, 1972 COLONOSCOPY, 10/31-DR PAN NEVER SMOKER LAST VITALS Temp Pulse Resp BP Pulse Ox 97.8 F 65 17 141/85 H 96 05/01/18 05:44 05/01/18 05:44 05/01/18 05:44 05/01/18 05:44 05/01/18 05:44 TAKE THESE MEDICATIONS AT HOME Carvedilol (Coreg) 12.5 mg PO BIDWM [facility] Last Admin: 05/01/18 09:04 Dose: 12.5 mg Cholecalciferol (Vitamin D) 1,000 unit PO DAILY [facility] Last Admin: 05/01/18 09:04 Dose: 1,000 unit L.acidoph, Paracasei, B.lactis (Probiotic) 1 tab PO DAILY Levothyroxine Sodium (Synthroid) 88 mcg PO QDAC [facility] Last Admin: 05/01/18 05:43 Dose: 88 mcg Lisinopril (Zestril) 40 mg PO DAILY [facility] Last Admin: 05/01/18 09:03 Dose: 40 mg Indapamide [Indapamide] 1.25 mg PO DAILY [facility] Last Admin: 05/01/18 09:04 Dose: 1.25 mg Metformin 1,000 mg PO BID (Hold for one week) Omeprazole (Prilosec) 20 mg PO QDAC Potassium Chloride (Micro-K Cap) 10 meq PO DAILYWM [facility] Last Admin: 05/01/18 09:04 Dose: 10 meq Simvastatin (Zocor) 40 mg PO BEDTIME [facility] Last Admin: 04/30/18 20:22 Dose: 40 mg Sotalol HCl (Betapace) 120 mg PO BID [facility] Last Admin: 05/01/18 09:03 Dose: 120 mg Tizanidine HCl (Zanaflex) 4 mg PO BEDTIME [facility] Last Admin: 05/01/18 09:04 Dose: 4 mg Warfarin Sodium (Coumadin) 3 mg PO QPM [facility] Last Admin: 04/29/18 16:36 Dose: 3 mg ALLERGIES acetaminophen [From Vicodin] Adverse Reaction (Verified 08/22/16 10:33) codeine phosphate [From Tylenol-Codeine #3] Adverse Reaction (Verified 08/22/16 10:33) erythromycin base [Erythromycin Base] Adverse Reaction (Verified 08/22/16 10:33) hydrochlorothiazide Adverse Reaction (Verified 08/22/16 10:33) hydrocodone bitartrate [From Vicodin] Adverse Reaction (Verified 08/22/16 10:33) Penicillins Adverse Reaction (Verified 08/22/16 10:33) NEW PRESCRIPTIONS: Tizanidine HCl [Zanaflex] 4 mg PO BEDTIME #30 tablet 05/01/18 Tramadol HCl 50 mg PO BID PRN #60 tablet 05/01/18 SMOKING: NEVER SMOKER DISEASE SPECIFIC EDUCATION: DEGENERATIVE DISC DISEASE OF THE SPINE CHRONIC NAUSEA AND POOR APPETITE HOME MEDICATIONS AND CHANGES NEW PRESCRIPTIONS REFERRAL APPOINTMENTS GASTROENTEROLOGY PHYSICAL THERAPY FOLLOW UP IN THE OFFICE LAB REVIEW: 05/01/18 04:10 05/01/18 04:10 05/01/18 04:10: Sodium 132.0 L, Potassium 3.47 L, Chloride 97.4 L, Carbon Dioxide 29.7, Anion Gap 8.37, BUN 25.8 H, Creatinine 1.07, Estimated GFR (MDRD) 50.00, BUN/Creatinine Ratio 24.11, Glucose 112.0 H, Calcium 8.76, Total Bilirubin 0.41, AST 21.8, ALT 13.1, Alkaline Phosphatase 27.1 L, Total Protein 5.64 L, Albumin 3.30 L, Globulin 2.34, Albumin/Globulin Ratio 1.41 05/01/18 04:10: PT 24.3 H D, INR 2.50 05/01/18 04:10: WBC 6.87, RBC 3.39 L, Hgb 10.0 L, Hct 27.4 L, MCV 80.8 L, MCH 29.5, MCHC 36.5 H, RDW Coeff of Zeus 13.0, Plt Count 184, Immature Gran % (Auto) 0.3, Neut % (Auto) 62.0, Lymph % (Auto) 25.9, Chester % (Auto) 9.5, Eos % (Auto) 2.0, Baso % (Auto) 0.3, Immature Gran # (Auto) 0.0, Neut # (Auto) 4.3, Lymph # ( Auto) 1.8, Chester # (Auto) 0.7, Eos # (Auto) 0.1, Baso # (Auto) 0.0 04/30/18 16:25: Stl Occult Blood (IFOB) Positive, Stool Occult Blood #2 No specimen received, Stool Occult Blood #3 No specimen received PLAN: DISCHARGE HOME TODAY, 05/01/[address] BOGGS FOR FOLLOW UP ON 05/09/18 AT 10:30 A.M. RESUME YOUR HOME MEDICATIONS PER LIST PROVIDED BY THE NURSING STAFF DO NOT TAKE YOUR METFORMIN FOR ONE WEEK, THEN RESUME ORDERED NEW PRESCRIPTIONS ZANAFLEX 4 MG, TAKE ONE TABLET BY MOUTH AT BEDTIME TRAMADOL 50 MG, TAKE ONE TABLET BY MOUTH TWICE DAILY IF NEEDED (PRN) FOR PAIN ACTIVITY GET PLENTY OF REST AT HOME. GRADUALLY INCREASE YOUR ACTIVITY LEVEL ACCORDING TO YOUR TOLERATION DIET CONSISTENT CARBS YOU HAVE BEEN REFERRED TO [facility] FOR [facility] TH[facility]AP[facility]. THEY WILL CONTACT YOU TO SCHEDULE AN APPOINTMENT [facility] [address] [place] [address] PH# [phone] YOU HAVE BEEN REFERRED TO DR. PAN. YOUR APPOINTMENT IS 05/08/18 AT 8:[address] PAN [facility] [address] [place] [address], [address] [place] [address] PH# [phone] SUMMARY THE PATIENT IS ALERT AND ORIENTED X3. SHE CURRENTLY RESIDES AT HOME WITH HER SPOUSE. SHE HAS BEEN INDEPENDENT WITH ADL'S. SHE HAS A GLUCOMETER AND BLOOD SUGAR TESTING SUPPLIES AT HOME FOR USE BUT DOES NOT REQUIRE HOME HEALTH OR HOMEMAKING SERVICES. SHE DESIRES TO RETURN TO HER HOME AT DISCHARGE. THE SKIN TURGOR IS INTACT. THERE ARE NO DECUBITUS ULCERS. HYDRATION AND NUTRITIONAL STATUS ARE FAIR TO GOOD. THE PATIENT SAYS SHE HAS HAD MILD NAUSEA DURING THIS STAY BUT NO EMESIS. LAST STOOLS X2 WERE 05/01/18. THE PATIENT REQUIRED ASSISTANCE WITH STOOLING BY MEANS OF NATURAL ORAL REMEDIES (PRUNE JUICE , APPLE JUICE AND MOLASSES) GIVEN BY THE NURSING STAFF. SHE SAYS SHE IS NOT HAVING ABDOMINAL PAIN TODAY AND FEELS SOME BETTER FOLLOWING DEFECATING. APPOINTMENT HAS BEEN SCHEDULED WITH [facility], DR. PAN, MENTIONED ABOVE. THE PATIENT ALSO HAS BEEN REFERRED TO [facility] IN [place], [place] CLOSE TO HER HOME FOR PHYSICAL THERAPY. SHE IS AWARE AND AGREEABLE FOR TODAY'S DISCHARGE PLANS. CODE STATUS FULL CODE WILOLW BOGGS M.D.
[2018-05-01 10:35] VITALS: BP 113/63; TEMP 97.5
[2018-05-01] MEDS: HUMULIN R SUBCUT PRN (10:56)
--- NOTE | 2018-05-01 11:44 | PN ---
DATE OF SERVICE: 04/28/18 SUBJECTIVE: 73-year-old white female hospitalized with back pain. The patient is a lot better, happier. She says pain is under control. The pain is rated as 2 on a scale of 1 to 10. She is on Toradol and steroids with pain medication. X-ray showed DJD of the spine. REVIEW OF SYSTEMS: CONSTITUTIONAL: No night sweats. No fatigue, malaise, lethargy. No fever or chills. HEENT: Eyes: No visual changes. No eye pain. No eye discharge. ENT: No runny nose. No epistaxis. No sinus pain. No sore throat. No odynophagia. No congestion. RESPIRATORY: No cough, no congestion. No hemoptysis. No shortness of breath. CARDIOVASCULAR: No angina symptoms. No CHF symptoms. No atypical chest pain for CAD. No palpitations. No orthopnea. GASTROINTESTINAL: No abdominal pain. No nausea or vomiting. No diarrhea or constipation. No hematemesis. No hematochezia. GENITOURINARY: No urgency. No frequency. No dysuria. No hematuria. No obstructive symptoms. No discharge. No pain. No significant abnormal bleeding. MUSCULOSKELETAL: No musculoskeletal pain; no joint swelling. NEUROLOGICAL: No headache. No neck pain. No syncope. No seizures. No dizziness. PSYCHIATRIC: Not anxious. No depression. No suicidal thoughts. No homicidal thoughts. SKIN: No rash. No lesions. No wounds. ENDOCRINE: No unexplained weight loss. No weight gain. HEMATOLOGIC/LYMPHATIC: No anemia. No purpura. No petechiae. No prolonged or excessive bleeding. No palpable lymph nodes. PHYSICAL EXAMINATION: GENERAL: The patient is oriented to time, place and person. HEENT: Head normocephalic, atraumatic. Eyes: Extraocular muscles are intact. Pupils are equal, round and reactive to light and accommodation. Ears: No lesions. Nose appeared normal. Throat: No exudate or erythema. NECK: Supple. No JVD, no carotid bruit. No lymphadenopathy or thyromegaly. LUNGS: Clear to auscultation. Percussion note normal. Chest symmetrical. HEART: S1, S2, no S3. No murmurs. No cyanosis or clubbing. No ascites. Pulses: Dorsalis pedis and posterior tibial pulses +1 to +2 both sides. ABDOMEN: Soft. Spine is nontender. Bowel sounds active. No CVA tenderness. No mass felt. EXTREMITIES: No edema. Full range of motion of all extremities, equal. NEUROLOGIC: No focal deficit. Cranial nerves II through XII are grossly intact. No headache, no double vision or headache. SKIN: Not dry. Intact. Turgor - normal. LYMPHATIC: No palpable lymph nodes/no lymphedema. MUSCULOSKELETAL: Normal joints with no swelling. Muscle tone is normal. Hemoglobin 11.2, hematocrit 30, WBC 8,000, normal differential. Creatinine 0.8, BUN 24. Potassium 3.8. ASSESSMENT: 1. SCIATICA 2. SEVERE DJD WITH GENERALIZED PAIN - PAIN STATUS IS A LOT BETTER. 3. GENERALIZED OSTEOARTHRITIS PLAN: 1. The IV is going to be out. 2. The patient will be up and about. CONDITION: Stable. TIME SPENT: More than 30 minutes. Plan and coordination of the patient's care discussed in the presence of nurse. JANET
--- NOTE | 2018-05-01 12:52 | PN ---
DATE OF SERVICE: 04/29/18 SUBJECTIVE: 73-year-old white female hospitalized with back pain. She still has right sciatica. The pain has increased some but still bearable. She is on nonsteroidal antiinflammatory and also steroids with pain medications. She is having some lose bowel movement and some nausea. Appetite is not good. Creatinine 0.8, BUN 34 indicating mild dehydration. is in the room. Sodium is 124. REVIEW OF SYSTEMS: CONSTITUTIONAL: No night sweats. No fatigue, malaise, lethargy. No fever or chills. HEENT: Eyes: No visual changes. No eye pain. No eye discharge. ENT: No runny nose. No epistaxis. No sinus pain. No sore throat. No odynophagia. No congestion. RESPIRATORY: No cough, no congestion. No hemoptysis. No shortness of breath. CARDIOVASCULAR: No angina symptoms. No CHF symptoms. No atypical chest pain for CAD. No palpitations. No orthopnea. GASTROINTESTINAL: Poor appetite, nausea. No abdominal pain. No vomiting. Loose bowel movement. No diarrhea or constipation. No hematemesis. No hematochezia. GENITOURINARY: No urgency. No frequency. No dysuria. No hematuria. No obstructive symptoms. No discharge. No pain. No significant abnormal bleeding. MUSCULOSKELETAL: No musculoskeletal pain; no joint swelling. NEUROLOGICAL: No headache. No neck pain. No syncope. No seizures. No dizziness. PSYCHIATRIC: Not anxious. No depression. No suicidal thoughts. No homicidal thoughts. SKIN: No rash. No lesions. No wounds. ENDOCRINE: No unexplained weight loss. No weight gain. HEMATOLOGIC/LYMPHATIC: No anemia. No purpura. No petechiae. No prolonged or excessive bleeding. No palpable lymph nodes. PHYSICAL EXAMINATION: V/S: Temperature 97.9, pulse 62, respiratory rate 18, BP 150/68, pulse ox 98% on room air. HEENT: Head normocephalic, atraumatic. Eyes: Extraocular muscles are intact. Pupils are equal, round and reactive to light and accommodation. Ears: No lesions. Nose appeared normal. Throat: No exudate or erythema. NECK: Supple. No JVD, no carotid bruit. No lymphadenopathy or thyromegaly. LUNGS: Clear to auscultation. Percussion note normal. Chest symmetrical. HEART: S1, S2, no S3. No murmurs. No cyanosis or clubbing. No ascites. Pulses: Dorsalis pedis and posterior tibial pulses +1 to +2 both sides. ABDOMEN: Soft. Nontender. Bowel sounds active. No CVA tenderness. No mass felt. EXTREMITIES: No edema. Full range of motion of all extremities, equal. NEUROLOGIC: No focal deficit. Cranial nerves II through XII are grossly intact. No headache, no double vision or headache. SKIN: Not dry. Intact. Turgor - normal. LYMPHATIC: No palpable lymph nodes/no lymphedema. MUSCULOSKELETAL: Normal joints with no swelling. Muscle tone is normal. ASSESSMENT: 1. RIGHT SCIATICA/SEVERE BACK PAIN/DJD 2. NAUSEA 3. HYPONATREMIA 4. DEHYDRATION PLAN: 1. Encourage the patient to drink fluids. 2. Hyponatremia will be monitored. 3. Will give Zofran. 4. Metformin will be discontinued because of diarrhea and abdominal discomfort. 5. Cardiovascular status is stable. CONDITION: Stable. TIME SPENT: More than 30 minutes. Plan and coordination of the patient's care discussed in the presence of nurse. JANET
--- NOTE | 2018-05-01 14:11 | HP ---
DATE OF SERVICE: 04/27/18 REASON FOR HOSPITALIZATION: Back pain/right sciatica. HISTORY OF PRESENT ILLNESS: This is a 73-year-old White/ female who presented with tendeness in the back week. Pain has progressed, last night was terrible right side radiating down to knee. Cannot walk and is hard to sit on toilet. PAST MEDICAL HISTORY: Diabetes mellitus Type 2 Cardiac Hypertension Thyroid Cholecystectomy Atrial fibrillation CKD, Stage 2 GERD History of GI bleed PAST SURGICAL HISTORY: CABG's 2009 [place] [address] Tubal 1980 Fusion back Left foot surgery 2003 Stimulation in left hiop REVIEW OF SYSTEMS: CONSTITUTIONAL: No fever, no fatigue. HEENT: No sinus drainage, no sore throat. RESPIRATORY: No cough, no congestion. CARDIOVASCULAR: No atypical chest pain for coronary artery disease. No angina , CHF symptoms, palpitations or shortness of breath. GASTROINTESTINAL: No melena or abdominal pain. No GERD. GENITOURINARY: No hematuria, no prostatism, no polyuria. PRINTING SERVICES COORDINATOR: No blackout, no dizziness, no headache, no double vision. Gait: Can't walk. MUSCULOSKELETAL: Osteoarthritis pain. ENDOCRINE: Weight loss of 4 lbs. SKIN: Not dry, no rash. PSYCHIATRIC: Not anxious, no depression, no suicidal thoughts, no homicidal thoughts. SOCIAL HISTORY: Marital Status: . Lives with . Two children. Occupation: Retired. Alcohol Usage: None. Tobacco Usage: None. No illicit drug use history. FAMILY HISTORY: Father - age 78 [place], hypertension. Mother - . Brother (1). Sister (1) . MENSTRUAL HISTORY: Mammogram 06/03 MEDICATIONS: Warfarin 3 mg daily Simvastatin 40 mg daily Vitamin D daily Levothyroxine 88 mcg daily Metformin 1000 mg b.i.d. Sotalol 120 mg b.i.d. Lisinopril 40 mg daily Omeprazole 20 mg daily K+ 10 mEq daily Coreg 12.5 mg b.i.d. Stool Softener p.r.n. daily Iron t.i.d. Indapamide 1.25 mg daily Probiotic OTC daily ALLERGIES: PENICILLIN, HCTZ, LEVAQUIN (RASH-ITCHING), CODEINE, E-MYCN, CARAFATE , NARCOTICS (SLEEPY), CODEINE (CONSTIPATION) PHYSICAL EXAMINATION: V/S: Pulse 68, BP 132/80, 02 sat 98%. Weight 156.4. Height 5'6". BMI 25.2. GENERAL APPEARANCE: Oriented times three. HEENT: Normal. NECK: No JVP, no bruits. RESPIRATORY: Lungs are clear. CARDIOVASCULAR: S1, S2, no S3, no murmurs. No cyanosis, clubbing. No ascites. GI/ABDOMEN: No tenderness. Bowel sounds are active. EXTREMITIES: Positive for right SI joint tenderness. No edema, pulses +1, equal. PRINTING SERVICES COORDINATOR: Deep tendon reflexes, sensory, motor and gait all normal. RECTAL/PELVIC: Colonoscopy - Dr. Hitchcock 09/02. Pelvic: Advised yearly. Mammogram 06/03 [facility]. ASSESSMENT: 1. INTRACTABLE BACK PAIN/RIGHT SCIATICA 2. ALLERGIC BRONCHITIS 3. LEFT HIP OSTEOARTHRITIS 4. HISTORY OF GI BLEED 5. ANEMIA 6. ATRIAL FIBRILLATION 7. DIABETES MELLITUS TYPE 2 (01/03 A1C 7.1) (04/05 A1C 6.1) 8. HYPERTENSION 9. DYSLIPIDEMIA 10. CHRONIC KIDNEY DISEASE STAGE 2 11. FUSION IN LOW BACK 1979 12. GERD 13. HYPOTHYROIDISM PLAN: 1. Admit regular. 2. Toradol 30 mg IV q.8h GANESH 3. Routine telemetry orders 4. CBC, CMP now and daily 5. Decadron 2 cc IM tomorrow IM 6. Zanaflex 4 mg p.o. b.i.d. GANESH one now 7. Franklin 5/325 mg q.8h p.r.n. one now 8. X-ray L-spine 9. Continue home medications 10. Sliding scale coverage 11. Regular diet 12. Zofran 4 mg IV p.r.n. q.6hr 13. Catheter if needed TIME SPENT: More than 70 minutes. MTDD
--- NOTE | 2018-05-03 11:18 | PN ---
04/27/18: Level 5 04/28/18: Intermediate 04/29/18: Intermediate 04/30/18: Intermediate 05/01/18: D as in discharge MTDD
--- NOTE | 2018-05-03 14:39 | PN ---
DATE OF SERVICE: 04/30/18 SUBJECTIVE: The patient was seen and examined with Nurse Practitioner. She has CT scan of abdomen done which is normal. Nausea is better. She may have mild stomach flu causing her symptoms. Back pain is somewhat better. Maybe discharged tomorrow. The patient declined neurosurgical consult. TIME SPENT: More than 30 minutes. Plan and coordination of the patient's care discussed in the presence of nurse. JANET
--- NOTE | 2018-05-07 13:08 | DS ---
DATE OF SERVICE: 05/01/18 FINAL DIAGNOSIS: 1. BACK PAIN 2. RIGHT SCIATICA 3. ANTEROLISTHESIS l3-l4, GRADE 1 4. DEGENERATIVE DISC DISEASE, L-SPINE 5. MODERATE TO SEVERE CENTRAL CANAL STENOSIS, L-SPINE 6. SEVERE RIGHT SIDE BONY NEURAL FORAMINAL NARROWING, L-SPINE 7. ABDOMINAL PAIN WITH NAUSEA 8. INFLUENZA A, 08/04/16 HOSPITALIZATION AT [facility] 9. GASTROENTERITIS 10. CAD S/P CABG, 2009 11. HISTORY OF ATRIAL FIBRILLATION 12. DYSLIPIDEMIA 13. HYPERTENSION 14. ANEMIA 15. VITAMIN B12 DEFICIENCY 16. DIABETES MELLITUS, TYPE 2 17. HYPOTHYROIDISM 18. GERD 19. MITRAL VALVE SURGERY 20. LUMBAR FUSION SURGERY, 1972 AND 1979 21. PAIN STIMULATOR INSERTION, 2002 22. LEFT FOOT SURGERY, 2002 AND 2003 23. CHOLECYSTECTOMY 24. TUBAL LIGATION, 1972 25. COLONOSCOPY, 10/31 DR. HITCHCOCK 26. NEVER SMOKER LAST VITALS: Temperature 97.8, pulse 65, respiratory rate 17, BP 141/85, pulse ox 96 DISCHARGE INSTRUCTIONS: 1. Followup appointment to see Dr. Joaquin/Kristina Hamilton APRN on 05/09/18 at 10 :30 a.m. 2. Referred to [facility] for Physical Therapy - they will contact you to schedule an appointment. [address] [place] [address]/[place] [address]. Ph#[phone]. [address]. [address] Hitchcock on 05/08/18 at 8:[address] [place] [address], [address] [address]. . MEDICATIONS AT DISCHARGE: Carvedilol (Coreg) 12.5 mg p.o. b.i.d. with meal [facility] Cholecalciferol 1,000 unit p.o. daily [facility] L. Acidoph, Paracasei, B.lactis (probiotic) one tab p.o. daily Levothyroxine 88 mcg p.o. q.d a.c. GANESH Lisinopril 40 mg p.o. daily GANESH Indapamide 1.25 mg p.o. daily GANESH Metformin 1000 mg p.o. b.i.d. (hold for one week) Omeprazole 20 mg p.o. q.d. a.c. Potassium Chloride (Micro-K Cap) 10 mEq p.o. daily with meal Simvastatin (Zocor) 40 mg p.o. bedtime GANESH Sotalol (Betapace) 120 mg p.o. b.i.d. Tizanidine (Zanaflex) 4 mg p.o. bedtime GANESH Warfarin (Coumadin) 3 mg p.o.q .p.m. GANESH NEW PRESCRIPTIONS: Zanaflex 4 mg one tablet p.o. at bedtime Tramadol 50 mg one tablet p.o. twice daily if needed (p.r.n.) for pain DIET INSTRUCTIONS: Consistent Carbs ACTIVITY: Get plenty of rest at home. Gradually increase your activity level according to your toleration. SMOKING: Never smoker DISEASE SPECIFIC EDUCATION: Degenerative disk disease of the spine Chronic nausea and poor appetite Home medications and changes New prescriptions Referral appointments - gastroenterology and physical therapy Followup in the office HOSPITAL COURSE: 73-year-old white female, who was a direct admit from our office. She had worsening back pain and right sciatica that had become intractable. She was unable to sit, unable to walk. She was in excruciating pain. She has a history of lumbar spine fusion and osteoarthritis. She was admitted, was given 2 cc's of Decadron IM the day of admission and placed on 1 cc Decadron IM daily, started on Toradol 30 mg IV q.8hr. X-rays were done of the L-spine as well as CT scan which did show changes associated with effusion and disk protrusion, severe degenerative joint disease of the L-spine. During her hospitalization she did report that she did report some nausea and decreased appetite. She was started on Protonix 40 mg b.i.d as well as Carafate t.i.d. CT of the abdomen and pelvis was done with contrast which was normal. Everything else was within normal limits. She did seem to improve on the third day after starting the Protonix and Carafate. She declines a GI referral. She is up to date with a colonoscopy. With the improvement, she wishes no further followup. We had discussed referring her to Pain Management or a neurosurgeon for possible injections or other conservative treatment, not surgery however this time she has declined. Back exercises have been discussed. Will send her home on Prednisone 10 mg p.o. b.i.d. She has Tramadol if needed to take it home and will followup with her in the office. She is discharged in stable condition. TIME SPENT: More than 60 minutes. JANET
== END 2018-05-01 11:17 | disposition home or self-care (01) | DRG 552 ==
LOC: MEDSURG B 11:16
PROVIDERS: ADMIT Internal Medicine; ATTEND Internal Medicine
DX: M54.31 Sciatica, right side (principal); E87.1 Hypo-osmolality and hyponatremia; E11.9 Type 2 diabetes mellitus without complications; E78.5 Hyperlipidemia, unspecified; E03.9 Hypothyroidism, unspecified; E53.8 Deficiency of other specified B group vitamins; E86.0 Dehydration; M16.12 Unilateral primary osteoarthritis, left hip; M43.26 Fusion of spine, lumbar region; M51.36 Other intervertebral disc degeneration, lumbar region; M48.061 Spinal stenosis, lumbar region without neurogenic claudication; J45.909 Unspecified asthma, uncomplicated; D64.9 Anemia, unspecified; I48.91 Unspecified atrial fibrillation; I10 Essential (primary) hypertension; N18.2 Chronic kidney disease, stage 2 (mild); R10.9 Unspecified abdominal pain; R11.0 Nausea; K52.9 Noninfective gastroenteritis and colitis, unspecified; K21.9 Gastro-esophageal reflux disease without esophagitis; Z79.01 Long term (current) use of anticoagulants
CPT/HCPCS: 36415; 80053; 81001; 82272; 82550; 82962; 84484; 85025; 85610; 93005; 93010

== ENCOUNTER 2023-10-16 20:28 | Inpatient (IN) ==
[2023-10-16 20:54] LABS: BASOPHILS % (AUTO) 0.1 % (0.0-3.0); EOSINOPHILS # (AUTO) 0.2 K/ul (0.0-0.7); EOSINOPHILS % (AUTO) 2.6 % (0.0-7.0); HEMATOCRIT 32.7 % (37.0-47.0); HEMOGLOBIN 10.7 g/dl (12.0-16.0); IMMATURE GRANULOCYTE % (AUTO) 0.3 % (0.0-5.0); LYMPHOCYTES # (AUTO) 0.7 K/uL (0.60-3.4); MEAN CORPUSCULAR HEMOGLOBIN 26.7 pg (27.0-31.0); MEAN CORPUSCULAR HGB CONC 32.7 (31.8-35.4); MEAN CORPUSCULAR VOLUME 81.5 fl (81.0-99.0); MONOCYTES # (AUTO) 0.8 K/uL (0.4-2.0); MONOCYTES % (AUTO) 10.9 (0-10); NEUTROPHILS # (AUTO) 5.2 K/ul (2.0-6.9); NEUTROPHILS % (AUTO) 76.1 % (42.2-75.2); PLATELET COUNT 199 10^3/uL (140-440); RDW COEFFICIENT OF VARIATION 13.5 % (11.6-14.8); RED BLOOD COUNT 4.01 10^6/ul (4.20-5.40); WHITE BLOOD COUNT 6.87 K/ul (4.6-10.2)
[2023-10-16 21:09] LABS: PROTHROMBIN TIME 14.5 SEC (9.3-11.0)
[2023-10-16 21:11] LABS: ALBUMIN 4.26 g/dL (3.5-5.0); ALKALINE PHOSPHATASE 35.3 U/L (53-141); ASPARTATE AMINO TRANSFERASE 36.7 U/L (14-36); BILIRUBIN,TOTAL 1.09 mg/dL (0.2-1.3); BLOOD UREA NITROGEN 16.9 mg/dL (7-17); CALCIUM 9.22 mg/dL (8.4-10.2); CARBON DIOXIDE 26.8 mmol/L (22-30.0); CHLORIDE 91.5 mmol/L (98-107); CREATININE 0.99 mg/dL (0.60-1.30); GLUCOSE 157.5 mg/dL (74-106); POTASSIUM 3.68 mmol/L (3.5-5.1); TOTAL PROTEIN 7.56 g/dL (6.3-8.2)
[2023-10-16 21:14] LABS: MOLECULAR FLU A NEGATIVE BY NAAT (NEGATIVE); MOLECULAR FLU B NEGATIVE BY NAAT (NEGATIVE); SARS COV-2 RNA RAPID NAAT NEGATIVE (NEGATIVE)
[2023-10-16] MEDS: LASIX IVP STA (21:35)
[2023-10-16] MEDS: DUONEB NEB STA (21:50)
--- NOTE | 2023-10-16 21:50 | DI ---
EXAM: CHEST X-RAY ONE VIEW. HISTORY: Short of breath. COMPARISON: 04/27/2018 chest x-ray. FINDINGS: There are increased patchy opacities present within the left lower lung. The remaining mariposa ngs are clear. The cardiac silhouette is enlarged. There is no pulmonary edema, pleural effusion or pneumothorax. No change in the valve replacement, sternotomy wires or osseous structures. IMPRESSION: Left lower lung pneumonia. Cardiomegaly.
[2023-10-16] MEDS ORDERED: TYLENOL PO PRN (22:07)
--- NOTE | 2023-10-16 22:18 | ED.PDOC ---
General ED Provider: Dr. SHERRELL JOHNSTON DO Chief Complaint: Respiratory Complaint Stated Complaint: 78-year-old female presents to the ER complaining shortness of breath. This been present for the last 2 to 3 days. Denies fever or sick contacts. She reports occasional cough. Reports that she had some electric shock type feelings approximately an hour before arriving but these have resolved prior to my evaluation. Patient has a history of heart disease with a history of open heart surgery stating that she had work done on one of her valves. She is on warfarin and reports compliance with her warfarin. Also reports history of diabetes, thyroid, cholesterol, chronic kidney disease, blood pressure. Patient has a history of echocardiogram in June of this year which appears to be overall within normal limits other than valvular disease Time Seen by Provider: 10/16/23 20:31 Information Source: Patient and Family Primary Care Provider: WILLOW JOAQUIN MD Nursing and Triage Documentation Reviewed and Agree: Yes What is Opioid Naive?: *Opioid Naive implies the patient is not already taking opioids or not chronically receiving opioids on a daily basis. *PRN dosing is not "usually" associated with tolerance. *Patients are at higher risk of over-sedation and aspiration. What is Opioid Tolerant?: *Opioid Tolerance implies less than the expected response to an opioid. *Acquired tolerance is defined by the patient taking 60mg of oral morphine daily (or equianalgesic dose of another opioid) for 1 week or more. *Often associated with chronic pain. *May take more than usual dose to achieve desired pain control. Review of Systems Review Of Systems Constitutional: Reports No symptoms All Other Systems: Reviewed and Negative [facility] Medical History (Updated 10/16/23 @ 22:18 by SHERRELL JOHNSTON DO) Encounter for vaccination Z23 - Encounter for immunization (ICD-10) History of GI bleed Z87.19 - Personal history of other diseases of the digestive system (ICD-10) Encounter for Medicare annual wellness exam Z00.00 - Encounter for general adult medical examination without abnormal findings (ICD-10) GI bleed not requiring more than 4 units of blood in 24 hours, ICU, or surgery K92.2 - GASTROINTESTINAL HEMORRHAGE, UNSPECIFIED (ICD-10) Dehydration E86.0 - DEHYDRATION (ICD-10) Gastroenteritis K52.9 - NONINFECTIVE GASTROENTERITIS AND COLITIS, UNSPECIFIED (ICD-10) Pleuritic pain R07.81 - PLEURODYNIA (ICD-10) Pneumonia J18.9 - PNEUMONIA, UNSPECIFIED ORGANISM (ICD-10) Family History FATHER No problems noted. Mother No problems noted. Social History Smoking and tobacco status: Never smoker Alcohol intake: current Alcohol intake frequency: holidays/special occasions only Substance use type: does not use Special juancarlos needs: No Agree to transfusion: Yes Adopted: No Caregiver/support person: No Foster care: No Household members: spouse Housing: house Marital status: M Number of children: 2 service: No group home: No Current occupational status: retired History of recent travel: No Do you think of yourself as: straight/heterosexual Current gender identity: female Seatbelt use: always Drives intoxicated or rides with intoxicated cab driver: No Water heater temperature set < 120 degrees: Yes Working smoke detector in home: Yes Fire extinguisher in home: Yes Carbon monoxide detector in home: Yes Surgical History (Updated 08/09/23 @ 08:43 by MENDEZ RAMÍREZ) Previous back surgery 1979 Z98.890 - Other specified postprocedural states (ICD-10) Female Reproductive History Menstrual Hx Hysterectomy: No Hx Tubal Ligation: Yes Physical Exam Physical Exam Appearance: Reports Well-appearing, No pain distress and Well-nourished Eyes: Reports EOMI and Conjunctiva clear ENT: Reports Nose normal and Oropharynx normal Neck: Supple Respiratory: Reports Airway patent, Respirations nonlabored and Crackles Cardiovascular: Reports RRR and Pulses normal GI/: Reports Soft and Nontender Musculoskeletal: Reports Normal strength, ROM intact and No edema Skin: Reports Warm, Dry and Normal color Neurological: Reports Sensation intact, Motor intact, Alert and Oriented Psychiatric: Reports Affect appropriate and Mood appropriate Interpretation EKG Interpretation EKG Interpretation By: ED Physician Time of EKG #1: 20:46 Rate: Normal (75) Rhythm: Other (Junctional) Ectopy: None [place]: NL ST Segment: Normal Interpretation: Nonspecific ST and T waves, no acute ischemia identified Course Course 10/16/23 20:45 10/16/23 20:45 Orders, Labs, Meds: Lab Review 10/16/23 10/16/2310/15/24 20:24 20:34 20:45 WBC 6.87 RBC 4.01 L Hgb 10.7 L Hct 32.7 L MCV 81.5 MCH 26.7 L MCHC 32.7 RDW Coeff of Zeus 13.5 Plt Count 199 Immature Gran % (Auto) 0.3 Neut % (Auto) 76.1 H Lymph % (Auto) 10.0 Rogers % (Auto) 10.9 H Eos % (Auto) 2.6 Baso % (Auto) 0.1 Neut # (Auto) 5.2 Lymph # (Auto) 0.7 Rogers # (Auto) 0.8 Eos # (Auto) 0.2 Baso # (Auto) 0.0 Immature Gran # (Auto) 0.0 PT 14.5 H INR 1.42 Sodium 129.0 L Potassium 3.68 Chloride 91.5 L Carbon Dioxide 26.8 Anion Gap 14.38 BUN 16.9 Creatinine 0.99 Estimated GFR (MDRD) 54.00 BUN/Creatinine Ratio 17.07 Glucose 157.5 H Calcium 9.22 Total Bilirubin 1.09 AST 36.7 H ALT 18.0 Alkaline Phosphatase 35.3 L Troponin I < 0.012 NT-Pro-B Natriuret Pep 1330 H Total Protein 7.56 Albumin 4.26 Globulin 3.30 Albumin/Globulin Ratio 1.29 Influ A Molecular Assay Negative by naat Influ B Molecular Assay Negative by naat SARS CoV-2 RNA Rapid CLIVE Negative Orders Category Date Time Status ADMIT PATIENT INPATIENT .TO [facility] (MONITORED BED) ADMISSION 10/16/23 22:07 Active EKG-(ED ONLY) Stat CARDIO 10/16/23 20:31 Completed EKG-(IP & OP ONLY) DAILY CARDIO 10/17/23 06:00 Ordered NEBULIZER TREATMENT Stat CARDIO 10/16/23 21:37 Ordered OXYGEN Routine CARDIO 10/16/23 22:07 Ordered I/O [INTAKE & OUTPUT] Q8HR CARE 10/16/23 22:07 Active TELEMETRY MONITORING TELE CARE 10/16/23 22:07 Active 2 GRAM SODIUM DIET DIETARY 10/17/23 Breakfast Ordered BMP [BASIC METABOLIC PANEL] DAILY@0600 LAB 10/17/23 06:00 Ordered BMP [BASIC METABOLIC PANEL] DAILY@0600 LAB 10/18/23 06:00 Ordered CBC W/ AUTO DIFF DAILY@0600 LAB 10/17/23 06:00 Ordered CBC W/ AUTO DIFF DAILY@0600 LAB 10/18/23 06:00 Ordered CBC W/ AUTO DIFF Stat LAB 10/16/23 20:45 Completed CMP [COMPREHENSIVE METABOLIC PANEL] Stat LAB 10/16/23 20:45 Completed COVID [SARS COV-2 RNA RAPID CLIVE] Stat LAB 10/16/23 20:34 Completed ED PROBNP [NT-PROBNP(ED)] Stat LAB 10/16/23 20:45 Completed FLU A & B MOLECULAR [FLU A/B MOLECULAR] Stat LAB 10/16/23 20:34 Completed PT WITH INR DAILY@0600 LAB 10/17/23 06:00 Ordered PT WITH INR DAILY@0600 LAB 10/18/23 06:00 Ordered PT WITH INR Stat LAB 10/16/23 20:24 Completed TROPONIN I DAILY@0600 LAB 10/17/23 06:00 Ordered TROPONIN I DAILY@0600 LAB 10/18/23 06:00 Ordered TROPONIN I Stat LAB 10/16/23 20:45 Completed Acetaminophen [Tylenol] Meds 10/16/23 22:07 Ordered 500 mg PO Q4HR PRN Furosemide [Lasix] Meds 10/16/23 21:25 Discontinued 60 mg IVP ONCE STA Ipratropium/Albuterol Neb [Duoneb] Meds 10/16/23 21:36 Discontinued 6 ml NEB ONCE STA Warfarin Sodium [Coumadin] Meds 10/16/23 22:07 Stat 5 mg PO ONCE STA CHEST, 1V AP ONLY Stat RADS 10/16/23 20:31 Completed CHEST, 1V AP ONLY Timed RADS 10/17/23 06:00 Ordered Medications Discontinued Medications Generic Name Dose Route Start Last Admin Trade Name Freq PRN Reason Stop Dose Admin Albuterol/Ipratropium 6 ml 10/16/23 21:36 10/16/23 21:50 Ipratropium/Albuterol Vial.Neb NEB 10/16/23 21:37 6 ml ONCE STA Administration Furosemide 60 mg 10/16/23 21:25 10/16/23 21:35 Furosemide Inj 100 Mg/10 Ml Vial IVP 10/16/23 21:26 60 mg ONCE STA Administration Vital Signs: Temp Pulse Resp BP Pulse Ox 10/16/23 20:36 97.1 F L 71 17 107/69 94 L Discharge Plan Discharge Patient Disposition: ADMITTED INPATIENT Discharge Problem: CHF (congestive heart failure), Shortness of breath, Acute hypoxemic respiratory failure, Anticoagulated, Subtherapeutic anticoagulation Prescriptions: No Action (DME) OneTouch Verio test strips Strip See Rx Instructions .ROUTE Qty: 100 2RF Rx Instructions: As directed E11.9 DM2 (DME) blood-glucose meter [OneTouch Verio Flex meter] [facility] [place] See Rx Instructions .ROUTE Qty: 1 0RF Rx Instructions: As directed E11.9 DM2 (DME) [facility] See Rx Instructions .ROUTE Qty: 100 5RF Rx Instructions: As directed E11.9 DM2 metformin 500 mg tablet extended release 24 hr See Rx Instructions .ROUTE .COMPLEX Qty: 180 1RF Dose Instruction: TAKE 1 TABLET BY MOUTH TWICE A DAY Rx Instructions: TAKE 1 TABLET BY MOUTH TWICE A DAY warfarin 3 mg tablet See Rx Instructions .ROUTE .COMPLEX Qty: 90 0RF Dose Instruction: TAKE 1 TABLET BY MOUTH EVERY DAY Rx Instructions: TAKE 1 TABLET BY MOUTH EVERY DAY potassium chloride [Klor-Con 10] 10 mEq tablet extended release 10 meq PO DAILY Qty: 90 1RF sotalol 120 mg tablet See Rx Instructions .ROUTE .COMPLEX Qty: 180 1RF Dose Instruction: TAKE 1 TABLET BY MOUTH TWICE A DAY Rx Instructions: TAKE 1 TABLET BY MOUTH TWICE A DAY cholecalciferol (vitamin D3) [Vitamin D3] 50 mcg (2,000 unit) capsule 2,000 unit PO DAILY zinc 50 mg capsule 50 mg PO DAILY lisinopril 40 mg tablet 40 mg PO DAILY loratadine [Claritin] 10 mg tablet 10 mg PO DAILY PRN (Reason: allergy symptoms) guaifenesin [Adult Tussin Chest Congestion] 100 mg/5 mL liquid 200 mg PO Q6H PRN (Reason: cough) cyanocobalamin (vitamin B-12) 1,000 mcg tablet 1,000 mcg PO QDAY amlodipine 5 mg tablet 5 mg PO QDAY Qty: 90 1RF carvedilol 12.5 mg tablet 12.5 mg PO BIDWM Qty: 180 1RF indapamide 1.25 mg tablet 1.25 mg PO DAILY Qty: 90 1RF levothyroxine 88 mcg tablet 88 mcg PO DAILY Qty: 90 1RF pantoprazole [Protonix] 40 mg tablet,delayed release (DR/EC) 40 mg PO DAILY Qty: 90 1RF polysaccharide iron complex [iFerex 150] 150 mg iron capsule 150 mg PO ONCE Qty: 90 1RF simvastatin 40 mg tablet 40 mg PO BEDTIME Qty: 90 1RF Did you review [place] WELDING OPERATOR for ALL controlled substances?: Not Applicable ED Provider: SHERRELL JOHNSTON Physician Progress Note: [] 78-year-old female presents to the ER complaining shortness of breath. Afebrile nontoxic doubt infection such as pneumonia or sepsis. She is hemodynamically stable overall but is noted that occasionally her oxygen does drop to 91 and has even dropped into the upper 80s. She is not oxygen dependent and therefore did require oxygen supplementation. Will give breathing treatments. I do not feel emergent ABG is warranted at this time as she is in no acute distress otherwise. She does have a history of cardiac disease therefore we will get cardiac enzymes and cardiac workup to include a BNP although I do not appreciate any overt edema. She does have some crackles on examination concern for new onset heart failure given her history of heart disease. I continue to have low suspicion for pneumonia although the chest x- ray was read as such. Will give prophylactic antibiotics although she does not have a leukocytosis or fever otherwise. Nonetheless, given the oxygen requirement and negative troponin and review of her labs that I recommended admission for further evaluation and stabilization given her overall fragility due to her age and comorbidities. I discussed case with Dr. Joaquin her primary physician and penciller who recommends the hospital service who was also gracious enough to accept this patient on admission. I placed initial orders to be followed up by the hospitalist service.
[2023-10-16 22:49] VITALS: BMI 25.8
[2023-10-16] MEDS: COUMADIN PO STA (23:19)
[2023-10-17] MEDS: ROCEPHIN 1 GM/50 ML D5W 1 GM/50 ML BAG IV SCH ×2 (01:17→20:19)
[2023-10-17] MEDS: DOXYCYCLINE HYCLATE PO SCH (01:17)
[2023-10-17] MEDS: DUONEB NEB PRN (05:15)
[2023-10-17 05:42] LABS: BASOPHILS % (AUTO) 0.4 % (0.0-3.0); EOSINOPHILS # (AUTO) 0.2 K/ul (0.0-0.7); EOSINOPHILS % (AUTO) 3.8 % (0.0-7.0); HEMATOCRIT 32.8 % (37.0-47.0); IMMATURE GRANULOCYTE % (AUTO) 0.2 % (0.0-5.0); LYMPHOCYTES % (AUTO) 18.3 (10.0-50.0); MEAN CORPUSCULAR HEMOGLOBIN 27.4 pg (27.0-31.0); MEAN CORPUSCULAR HGB CONC 33.5 (31.8-35.4); MEAN CORPUSCULAR VOLUME 81.8 fl (81.0-99.0); MONOCYTES # (AUTO) 0.8 K/uL (0.4-2.0); MONOCYTES % (AUTO) 13.9 (0-10); NEUTROPHILS # (AUTO) 3.5 K/ul (2.0-6.9); NEUTROPHILS % (AUTO) 63.4 % (42.2-75.2); PLATELET COUNT 217 10^3/uL (140-440); RDW COEFFICIENT OF VARIATION 13.4 % (11.6-14.8); RED BLOOD COUNT 4.01 10^6/ul (4.20-5.40); WHITE BLOOD COUNT 5.47 K/ul (4.6-10.2)
[2023-10-17 05:57] LABS: ALANINE AMINOTRANSFERASE 18.5 U/L (0-35); ALBUMIN 4.23 g/dL (3.5-5.0); ASPARTATE AMINO TRANSFERASE 36.2 U/L (14-36); BILIRUBIN,TOTAL 0.85 mg/dL (0.2-1.3); BLOOD UREA NITROGEN 17.7 mg/dL (7-17); CALCIUM 9.12 mg/dL (8.4-10.2); CARBON DIOXIDE 30.7 mmol/L (22-30.0); CHLORIDE 87.1 mmol/L (98-107); CREATININE 1.15 mg/dL (0.60-1.30); GLUCOSE 132.4 mg/dL (74-106); POTASSIUM 3.5 mmol/L (3.5-5.1); SODIUM 131.2 mmol/L (134.5-145); TOTAL PROTEIN 7.56 g/dL (6.3-8.2)
[2023-10-17 06:26] LABS: BLOOD UREA NITROGEN 18.2 mg/dL (7-17); CALCIUM 9.24 mg/dL (8.4-10.2); CARBON DIOXIDE 30.8 mmol/L (22-30.0); CHLORIDE 88.2 mmol/L (98-107); CREATININE 1.17 mg/dL (0.60-1.30); GLUCOSE 133.6 mg/dL (74-106); SODIUM 132.2 mmol/L (134.5-145)
[2023-10-17 06:39] LABS: TROPONIN I < 0.012 ng/ml (0.0000-0.120)
[2023-10-17] MEDS: NIFEREX 150 PO SCH (08:31)
[2023-10-17] MEDS: BETAPACE PO SCH (08:31)
[2023-10-17] MEDS: LOZOL PO SCH (08:31)
[2023-10-17] MEDS: COREG PO SCH (08:32)
[2023-10-17] MEDS: ZESTRIL PO SCH (08:32)
[2023-10-17] MEDS: CLARITIN PO PRN (08:32)
[2023-10-17] MEDS: NORVASC PO SCH (08:32)
[2023-10-17] MEDS: PROTONIX PO SCH (08:35)
[2023-10-17] MEDS: SYNTHROID PO SCH (08:35)
[2023-10-17] MEDS: MICRO-K CAP PO SCH (08:35)
[2023-10-17] MEDS: NYSTOP POWDER TP SCH (08:56)
--- NOTE | 2023-10-17 09:07 | PCM ---
Date of Service Date Seen by Provider: 10/17/23 Time Seen by Provider: 08:30 Admit Day/Time Admission Date: 10/16/23 Admission Time: 22:07 Reason for Admission Chief Complaint: CHF,ACUE RESPIRATORY FAILURE Hospital Provider Hospital Provider: LEFTY LUDWIG PA-C, [facility] Primary Care Physician Primary Care Physician: WILLOW BOGGS MD History of Present Illness History of Present Illness: Patient is a 78 year old female with pmhx of a fib with chronic anticoagulation with coumadin, hypertension, hyperlipidemia, GERD, CKD, DMT2 who presented to ER with cough and SOB since 4-5 days ago. She thought it was just allergies, she's been working out in her garden. But she's had more SOB with exertion, non productive cough. She woke up one night sweaty. She has some chest pain when she coughs. She feels weak, she's had to use her walker the past couple days which is unlike her. In the ER she was noted to have oxygen saturations in upper 80s- low 90s. She was placed on 2L. BNP elevated. No hx of CHF. CXR showed left lower lobe pneumonia. She was given lasix. Patient admitted to [facility]. Patient had recent echo in June with normal EF. Case Discussed With Case Discussed With: Patient's case was discussed with the ER Physicians, Dr. Moore. [facility] Medical History Encounter for vaccination Z23 - Encounter for immunization (ICD-10) History of GI bleed Z87.19 - Personal history of other diseases of the digestive system (ICD-10) Encounter for Medicare annual wellness exam Z00.00 - Encounter for general adult medical examination without abnormal findings (ICD-10) GI bleed not requiring more than 4 units of blood in 24 hours, ICU, or surgery K92.2 - GASTROINTESTINAL HEMORRHAGE, UNSPECIFIED (ICD-10) Dehydration E86.0 - DEHYDRATION (ICD-10) Gastroenteritis K52.9 - NONINFECTIVE GASTROENTERITIS AND COLITIS, UNSPECIFIED (ICD-10) Pleuritic pain R07.81 - PLEURODYNIA (ICD-10) Pneumonia J18.9 - PNEUMONIA, UNSPECIFIED ORGANISM (ICD-10) Surgical History Previous back surgery 1979 Z98.890 - Other specified postprocedural states (ICD-10) Family History FATHER Myocardial infarction Mother Kidney disease SISTER Colon cancer Mother No problems noted. Social History Smoking and tobacco status: Never smoker Alcohol intake: current Alcohol intake frequency: holidays/special occasions only Substance use type: does not use Special juancarlos needs: No Agree to transfusion: Yes Adopted: No Caregiver/support person: No Foster care: No Household members: spouse Housing: house Marital status: M Number of children: 2 service: No alf: No Current occupational status: retired History of recent travel: No Do you think of yourself as: straight/heterosexual Current gender identity: female Seatbelt use: always Drives intoxicated or rides with intoxicated oil transport driver: No Water heater temperature set < 120 degrees: Yes Working smoke detector in home: Yes Fire extinguisher in home: Yes Carbon monoxide detector in home: Yes Allergies Allergies Allergy/AdvReac Type Severity Reaction Status Date / Time acetaminophen [From Vicodin] AdvReac constipatio Verified 10/16/23 20:46 n codeine phosphate AdvReac constipatio Verified 10/16/23 20:46 [From Tylenol-Codeine #3] n erythromycin base AdvReac Rash Verified 10/16/23 20:46 [Erythromycin Base] hydrochlorothiazide AdvReac Itching Verified 10/16/23 20:46 hydrocodone bitartrate AdvReac constipatio Verified 10/16/23 20:46 [From Vicodin] n levofloxacin [From Levaquin] AdvReac Rash Verified 10/16/23 20:46 Penicillins AdvReac Rash Verified 10/16/23 20:46 Current Medications Home Medications cyanocobalamin (vitamin B-12) 1,000 mcg tablet 1,000 mcg PO QDAY 10/20/22 [History Confirmed 10/16/23 Last Taken Unknown] amlodipine 5 mg tablet 5 mg PO QDAY #90 tabs 01/26/23 [Rx Confirmed 10/16/23 Last Taken Unknown] carvedilol 12.5 mg tablet 12.5 mg PO BIDWM #180 tabs 01/26/23 [Rx Confirmed 10/16/23 Last Taken Unknown] indapamide 1.25 mg tablet 1.25 mg PO DAILY #90 tabs 01/26/23 [Rx Confirmed 10/16/23 Last Taken Unknown] levothyroxine 88 mcg tablet 88 mcg PO DAILY #90 tabs 01/26/23 [Rx Confirmed 10/16/23 Last Taken Unknown] pantoprazole 40 mg tablet,delayed release (Protonix) 40 mg PO DAILY #90 tabs 01/26/23 [Rx Confirmed 10/16/23 Last Taken Unknown] simvastatin 40 mg tablet 40 mg PO BEDTIME #90 tabs 01/26/23 [Rx Confirmed 10/16/23 Last Taken Unknown] blood sugar diagnostic (Saborstud[employer] Verio test strips) #100 ea 04/24/23 [Rx Confirmed 10/16/23 Last Taken Unknown] blood-glucose meter ([employer] Verio Flex Meter) #1 ea 04/24/23 [Rx Confirmed 10/16/23 Last Taken Unknown] lancets 33 gauge #100 ea 04/24/23 [Rx Confirmed 10/16/23 Last Taken Unknown] warfarin 3 mg tablet See Rx Instructions .Route .COMPLEX #90 tabs 08/28/23 [Rx Confirmed 10/16/23 Last Taken Unknown] potassium chloride 10 mEq tablet,extended release (Klor-Con) 10 meq PO DAILY #90 tabs 08/30/23 [Rx Confirmed 10/16/23 Last Taken Unknown] cholecalciferol (vitamin D3) 50 mcg (2,000 unit) capsule (Vitamin D3) 2,000 unit PO DAILY 10/16/23 [History Confirmed 10/16/23 Last Taken Unknown] guaifenesin 100 mg/5 mL oral liquid (Adult Tussin Chest Congestion) 200 mg PO Q6H PRN cough 10/16/23 [History Confirmed 10/16/23 Last Taken Unknown] lisinopril 40 mg tablet 40 mg PO DAILY 10/16/23 [History Confirmed 10/16/23 Last Taken Unknown] loratadine 10 mg tablet (Claritin) 10 mg PO DAILY PRN allergy symptoms 10/16/23 [History Confirmed 10/16/23 Last Taken Unknown] metformin 500 mg tablet,extended release 24 hr 500 mg PO BID 10/16/23 [History Confirmed 10/16/23 Last Taken Unknown] polysaccharide iron complex 150 mg iron capsule (iFerex 150) 150 mg PO DAILY 10/16/23 [History Confirmed 10/16/23 Last Taken Unknown] sotalol 120 mg tablet 120 mg PO BID 10/16/23 [History Confirmed 10/16/23 Last Taken Unknown] zinc 50 mg capsule 50 mg PO DAILY 10/16/23 [History Confirmed 10/16/23 Last Taken Unknown] Home Acetaminophen (Acetaminophen 500 Mg Tablet) 500 mg PO Q4HR PRN PRN Reason: FEVER/PAIN Albuterol/Ipratropium (Ipratropium/Albuterol Vial.Neb) 3 ml NEB Q4H PRN PRN Reason: sob Last Admin: 10/17/23 13:04 Dose: 3 ml Amlodipine Besylate (Amlodipine Besylate 5 Mg Tablet) 5 mg PO DAILY [facility] Last Admin: 10/17/23 08:32 Dose: 5 mg Benzonatate (Benzonatate 100 Mg Capsule) 100 mg PO TID PRN PRN Reason: Cough Last Admin: 10/17/23 11:50 Dose: 100 mg Carvedilol (Carvedilol 12.5 Mg Tablet) 12.5 mg PO BIDWM2 [facility] Last Admin: 10/17/23 08:32 Dose: 12.5 mg Doxycycline Hyclate (Doxycycline Hyclate 100 Mg Capsule) 100 mg PO Q12HR [facility] Stop: 10/21/23 22:00 Last Admin: 10/17/23 08:32 Dose: 100 mg Guaifenesin (Guaifenesin 600 Mg Tablet.Er) 600 mg PO Q12HR [facility] Last Admin: 10/17/23 11:50 Dose: 600 mg CEFTRIAXONE/D5W 1 GM PREMIX (Rocephin 1 Gm/50 Ml D5w) 1 gm in 50 mls @ 100 mls/hr IV BEDTIME [facility] Stop: 10/20/23 00:49 Indapamide (Indapamide 2.5 Mg Tablet) 1.25 mg PO DAILY [facility] Last Admin: 10/17/23 08:31 Dose: 1.25 mg Insulin Human Lispro (Insulin Lispro 100 Unit/Ml Vial) 0 unit SUBCUT PRN PRN; Protocol PRN Reason: Hyperglycemia Levothyroxine Sodium (Levothyroxine Sodium 88 Mcg Tablet) 88 mcg PO QDAC2 [facility] Last Admin: 10/17/23 08:35 Dose: 88 mcg Lisinopril (Lisinopril 40 Mg Tablet) 40 mg PO DAILY [facility] Last Admin: 10/17/23 08:32 Dose: 40 mg Loratadine (Loratadine 10 Mg Tablet) 10 mg PO DAILY PRN PRN Reason: Allergy Symptoms Last Admin: 10/17/23 08:32 Dose: 10 mg Nystatin (Nystatin 15 Gm Powder) 1 applic TP BID [facility] Last Admin: 10/17/23 08:56 Dose: 1 applic Pantoprazole Sodium (Pantoprazole Sodium 40 Mg Tablet.Dr) 40 mg PO QDAC2 [facility] Last Admin: 10/17/23 08:35 Dose: 40 mg Polysaccharide Iron Complex (Iron Polysaccharide Complex 150 Mg Capsule) 150 mg PO DAILY [facility] Last Admin: 10/17/23 08:31 Dose: 150 mg Potassium Chloride (Potassium Chloride 10 Meq Capsule.Er) 10 meq PO DAILYWM2 [facility] Last Admin: 10/17/23 08:35 Dose: 10 meq Simvastatin (Simvastatin 40 Mg Tablet) 40 mg PO BEDTIME [facility] Sodium Chloride (0.9% Sodium Chloride 10 Ml Disp.Syrin) 1 syr IVF Q8HR [facility] Last Admin: 10/17/23 12:49 Dose: 1 syr Sotalol HCl (Sotalol Hcl 80 Mg Tablet) 120 mg PO BID [facility] Last Admin: 10/17/23 08:31 Dose: 120 mg Warfarin Sodium (Warfarin Sodium 3 Mg Tablet) 3 mg PO QPM [facility] Warfarin Sodium (Warfarin Sodium 5 Mg Tablet) 5 mg PO ONCE ONE Stop: 10/17/23 17:01 Discontinued Medications Albuterol/Ipratropium (Ipratropium/Albuterol Vial.Neb) 6 ml NEB ONCE STA Stop: 10/16/23 21:37 Last Admin: 10/16/23 21:50 Dose: 6 ml Furosemide (Furosemide Inj 100 Mg/10 Ml Vial) 60 mg IVP ONCE STA Stop: 10/16/23 21:26 Last Admin: 10/16/23 21:35 Dose: 60 mg CEFTRIAXONE/D5W 1 GM PREMIX (Rocephin 1 Gm/50 Ml D5w) 1 gm in 50 mls @ 100 mls/hr IV DAILY [facility] Stop: 10/20/23 00:49 Last Admin: 10/17/23 01:17 Dose: 100 mls/hr Warfarin Sodium (Warfarin Sodium 5 Mg Tablet) 5 mg PO ONCE STA Stop: 10/16/23 22:08 Last Admin: 10/16/23 23:19 Dose: 5 mg Opioid Naive vs. Tolerant Does Patient Take Opioids?: No Is Patient Opioid Naive?: Yes What is Opioid Naive?: *Opioid Naive implies the patient is not already taking opioids or not chronically receiving opioids on a daily basis. *PRN dosing is not "usually" associated with tolerance. *Patients are at higher risk of over-sedation and aspiration. Is Patient Opioid Tolerant?: No What is Opioid Tolerant?: *Opioid Tolerance implies less than the expected response to an opioid. *Acquired tolerance is defined by the patient taking 60mg of oral morphine daily (or equianalgesic dose of another opioid) for 1 week or more. *Often associated with chronic pain. *May take more than usual dose to achieve desired pain control. Review of Systems Constitutional: Reports Fatigue, Weakness and Sweats; Denies Fever Head: Reports Normocephalic and Atraumatic Throat: Denies Sore Throat Cardiovascular: Reports Chest pain; Denies Chest Pressure or Edema Respiratory: Reports Cough and Shortness of air Gastrointestinal: Denies Nausea, Vomiting, Diarrhea, Abdominal pain or Melena Genitourinary: Denies Dysuria or Frequency Dermatologic: Denies Rashes Neurological: Reports Weakness and Problems with walking; Denies Headache Physical examination Most Recent Vital Signs: Most Recent Vital Signs Temperature 98.1 F 10/17/23 05:33 Temperature Source Temporal Artery Scan 10/17/23 05:33 Temperature Source Temporal Artery Scan 10/16/23 20:36 Pulse Rate 70 10/17/23 08:00 Respiratory Rate 19 10/17/23 08:00 Blood Pressure 127/69 10/17/23 05:33 Blood Pressure Mean 88 10/17/23 05:33 Blood Pressure Left Arm 122/80 10/16/23 22:40 Blood Pressure Location Right Arm 10/17/23 05:33 Blood Pressure Position Supine 10/17/23 05:33 O2 Sat by Pulse Oximetry 93 L 10/17/23 05:33 Oxygen Delivery Method Nasal Cannula 10/17/23 08:00 Oxygen Flow Rate 2 10/17/23 08:00 Height 5 ft 6 in 10/16/23 22:40 Weight 159 lb 14.4 oz 10/16/23 22:40 Telemetry Type Remote Telemetry 10/17/23 07:00 Telemetry Monitoring Continues 10/17/23 07:00 Telemetry Heart Rate 64 10/17/23 07:00 Telemetry SPO2 97 10/16/23 23:16 EKG MO Interval 0.12 10/17/23 07:00 EKG QRS Interval 0.16 H 10/17/23 07:00 Telemetry Strip Reading Junctional with PVC 10/17/23 07:00 Appearance: Positive No Apparent Distress and Alert and Oriented x3 Skin: Positive [place], Warm, Good Turgor and Good Color; Negative Rashes HEENT: Positive Normocephalic and Atraumatic Neck: Positive Supple and Midline Trachea Chest/Lungs: Positive Symmetrical With Equal Breath Sounds, Rhonci (adrian) and Other (+Wearing 2L nasal cannula ); Negative Wheezes Heart: Positive RRR GI/: Positive Soft, Nontender, Bowel Sounds Normal and No Distention Extremities: Negative Edema Neurological: Positive Cranial Nerves Intact, Alert, Oriented and Other (+generalized weakness ) Psychiatric: Positive Oriented x4, Appropriate Mood and Appropriate Affect Labs This Visit Labs This Visit: Labs This Visit 10/16/23 10/16/23 10/16/23 20:24 20:34 20:45 WBC 6.87 RBC 4.01 L Hgb 10.7 L Hct 32.7 L MCV 81.5 MCH 26.7 L MCHC 32.7 RDW Coeff of Zeus 13.5 Plt Count 199 Immature Gran % (Auto) 0.3 Neut % (Auto) 76.1 H Lymph % (Auto) 10.0 Charlton % (Auto) 10.9 H Eos % (Auto) 2.6 Baso % (Auto) 0.1 Neut # (Auto) 5.2 Lymph # (Auto) 0.7 Charlton # (Auto) 0.8 Eos # (Auto) 0.2 Baso # (Auto) 0.0 Immature Gran # (Auto) 0.0 PT 14.5 H INR 1.42 Sodium 129.0 L Potassium 3.68 Chloride 91.5 L Carbon Dioxide 26.8 Anion Gap 14.38 BUN 16.9 Creatinine 0.99 Estimated GFR (MDRD) 54.00 BUN/Creatinine Ratio 17.07 Glucose 157.5 H Calcium 9.22 Total Bilirubin 1.09 AST 36.7 H ALT 18.0 Alkaline Phosphatase 35.3 L Troponin I < 0.012 NT-Pro-B Natriuret Pep 1330 H Total Protein 7.56 Albumin 4.26 Globulin 3.30 Albumin/Globulin Ratio 1.29 Procalcitonin Influ A Molecular Assay Negative by naat Influ B Molecular Assay Negative by naat SARS CoV-2 RNA Rapid CLIVE Negative 10/16/23 10/17/23 10/17/23 22:17 05:20 05:25 WBC 5.47 RBC 4.01 L Hgb 11.0 L Hct 32.8 L MCV 81.8 MCH 27.4 MCHC 33.5 RDW Coeff of Zeus 13.4 Plt Count 217 Immature Gran % (Auto) 0.2 Neut % (Auto) 63.4 Lymph % (Auto) 18.3 Charlton % (Auto) 13.9 H Eos % (Auto) 3.8 Baso % (Auto) 0.4 Neut # (Auto) 3.5 Lymph # (Auto) 1.0 Charlton # (Auto) 0.8 Eos # (Auto) 0.2 Baso # (Auto) 0.0 Immature Gran # (Auto) 0.0 PT 15.0 H INR 1.47 Sodium 132.2 L Potassium 3.50 Chloride 88.2 L Carbon Dioxide 30.8 H Anion Gap 16.70 BUN 18.2 H Creatinine 1.17 Estimated GFR (MDRD) 45.00 BUN/Creatinine Ratio 15.55 Glucose 133.6 H Calcium 9.24 Total Bilirubin AST ALT Alkaline Phosphatase Troponin I < 0.012 < 0.012 NT-Pro-B Natriuret Pep Total Protein Albumin Globulin Albumin/Globulin Ratio Procalcitonin 0.06 Influ A Molecular Assay Influ B Molecular Assay SARS CoV-2 RNA Rapid CLIVE 10/17/23 05:30 WBC RBC Hgb Hct MCV MCH MCHC RDW Coeff of Zeus Plt Count Immature Gran % (Auto) Neut % (Auto) Lymph % (Auto) Charlton % (Auto) Eos % (Auto) Baso % (Auto) Neut # (Auto) Lymph # (Auto) Charlton # (Auto) Eos # (Auto) Baso # (Auto) Immature Gran # (Auto) PT INR Sodium 131.2 L Potassium 3.50 Chloride 87.1 L Carbon Dioxide 30.7 H Anion Gap 16.90 BUN 17.7 H Creatinine 1.15 Estimated GFR (MDRD) 46.00 BUN/Creatinine Ratio 15.39 Glucose 132.4 H Calcium 9.12 Total Bilirubin 0.85 AST 36.2 H ALT 18.5 Alkaline Phosphatase 35.0 L Troponin I NT-Pro-B Natriuret Pep Total Protein 7.56 Albumin 4.23 Globulin 3.33 Albumin/Globulin Ratio 1.27 Procalcitonin Influ A Molecular Assay Influ B Molecular Assay SARS CoV-2 RNA Rapid CLIVE Imaging Imaging: EXAM: CHEST X-RAY ONE VIEW. HISTORY: Short of breath. COMPARISON: 04/27/2018 chest x-ray. FINDINGS: There are increased patchy opacities present within the left lower lung. The remaining lungs are clear. The cardiac silhouette is enlarged. There is no pulmonary edema, pleural effusion or pneumothorax. No change in the valve replacement, sternotomy wires or osseous structures. IMPRESSION: Left lower lung pneumonia. Cardiomegaly. Date of Exam: 07/11/2023Ordering Physician: DR. WILLOW BOGGS Room #: OP Reason for Echo: SOB, HTN, DYSLIPIDEMIA, DM2, A-FIB M-Mode Normal Adult Results LV Dimensions Normal Adult Results AoV Opening excursions >1.6 >1.6 LVEDD-base- 3.5-5.8 4.1 Ao root dimensions 2.0-3.7 3.9 LVESD-base- 3.1-4.6 L. Atrium dimensions 1.9-3.8 4.8 Post. Wall thickness 0.8-1.1 1.3 IV septum (thickness) 0.7-1.2 1.3 Post. Wall excursion 0.72-1.3 NORMAL Septal motion NORMAL Systolic motion R. Ventricular cavity 1.5-2.0 3.0 LVEF 60% Paradoxical septal wall motion NORMAL 68% 2-D : ENLARGED LEFT ATRIAL AND RIGHT VENTRICLE CAVITIES AND RIGHT ATRIAL CAVITY, NORMAL LEFT VENTRICLE SIZE AND CONTRACTILITY--CALCIFIC MITRAL VALVE ANNULUS, CALCIFIC AORTIC VALVES, NO STENOSIS COLOR FLOW:SEVERE TRICUSPID REGURGITATION, TRACE TO MILD MITRAL REGURGITATION M-MODE: MV: CALCIFIC MITRAL VALVE ANNULUS AV: CALCIFIC AORTIC VALVE--NO STENOSIS TV: NORMAL PV: NORMAL CHAMBER SIZE: ENLARGED LEFT ATRIA, RIGHT ATRIAL AND RIGHT VENTRICLE CAVITIES WALL MOTION: NORMAL PERICARDIUM: NORMAL INTERPRETATION: 1. LEFT VENTRICLE HYPERTROPHY WITH ENLARGED LEFT ATRIAL CAVITY 2. ENLARGED RIGHT VENTRICLE AND RIGHT ATRIAL CAVITIES 3. CALCIFIC MITRAL VALVE ANNULUS 4. CALCIFIC AORTIC VALVES--NO STENOSIS 5. NORMAL LEFT VENTRICLE SIZE AND LEFT VENTRICLE CONTRACTILITY Review Statement Review Statement: I have independently reviewed and interpreted the labs/EKGs/imaging that were ordered by the ER provider. I have reviewed all outside records that are available currently in our EMR including imaging/notes/labs from previous visits. Plan Plan: 1. Acute hypoxic respiratory failure in setting of left lower lobe pneumonia - RT consult, wean O2 when able 2. Left lower lobe pneumonia, community acquired - PSI 97, class IV, requiring hospitalization. Rocephin, doxy, duonebs, O2 supplementation. PT/OT. Pt appears euvolemic. 3. Subtherapeutic INR - INR 1.4. Give 5 mg warfarin tonight, resume normal dosing tomorrow evening. Daily INRs. 4. A fib - Cont home meds. 5. Hx of mitral valve repair - Pt unsure of details. 6. DMT2 - Hold metformin, humalog sliding scale, accuchecks achs. 7. Hypertension - Cont home meds 8. Hyperlipidemia - Cont home meds DVT Prophylaxis: Warfarin Time Spent: Greater than 80 minutes spent with patient, 50% of the time spent with this patient was devoted to counseling and coordination of care. Advanced Care Plannin minutes spent discussing advance care planning. Disposition: Will require at least 2 midnights Admit to: Inpatient Discussed Plan of Care with Dr. Maritza Boggs. Medications Medication Orders: Medications Ordered Category Date Time Status 0.9 % Sodium Chloride [Saline Flush] Meds 10/17/23 05:00 Active 1 syr IVF Q8HR Acetaminophen [Tylenol] Meds 10/16/23 22:07 Active 500 mg PO Q4HR PRN Amlodipine Besylate [Norvasc] Meds 10/17/23 09:00 Active 5 mg PO DAILY Carvedilol [Coreg] Meds 10/17/23 08:30 Active 12.5 mg PO BIDWM2 Ceftriaxone/D5w 1 gm Premix [Rocephin 1 gm/50 ml D5w] Meds 10/17/23 21:00 Active 1 gm in 50 ml IV BEDTIME Doxycycline Hyclate Meds 10/17/23 00:50 Active 100 mg PO Q12HR Indapamide [Lozol] Meds 10/17/23 09:00 Active 1.25 mg PO DAILY Ipratropium/Albuterol Neb [Duoneb] Meds 10/16/23 22:19 Active 3 ml NEB Q4H PRN Iron Polysaccharide Complex [Niferex 150] Meds 10/17/23 09:00 Active 150 mg PO DAILY Levothyroxine Sodium [Synthroid] Meds 10/17/23 09:00 Active 88 mcg PO QDAC2 Lisinopril [Zestril] Meds 10/17/23 09:00 Active 40 mg PO DAILY Loratadine [Claritin] Meds 10/17/23 08:08 Active 10 mg PO DAILY PRN Nystatin [Nystop Powder] Meds 10/17/23 09:00 Active 1 applic TP BID Pantoprazole Sodium [Protonix] Meds 10/17/23 09:00 Active 40 mg PO QDAC2 Potassium Chloride [Micro-K Cap] Meds 10/17/23 09:00 Active 10 meq PO DAILYWM2 Simvastatin [Zocor] Meds 10/17/23 21:00 Active 40 mg PO BEDTIME Sotalol HCl [Betapace] Meds 10/17/23 09:00 Active 120 mg PO BID Warfarin Sodium [Coumadin] Meds 10/17/23 17:00 Active 3 mg PO QPM
[2023-10-17] MEDS ORDERED: ROBITUSSIN AC PO PRN (11:07)
[2023-10-17] MEDS: TESSALON PERLES PO PRN (11:50)
[2023-10-17] MEDS: MUCINEX PO SCH (11:50)
--- NOTE | 2023-10-17 14:51 | RS.PTINEVL ---
Subjective Patient information Date of Evaluation: 10/17/23 Date of Arrival on Unit: 10/16/23 Admitted From:: Home Diagnosis: acute hypoxic resp failure, LLL pneumonia, decreased mobility Usual Living Arrangement: With Spouse Living Arrangement Comments: home Home Environment: House, Stairs (few) (4), Rail and No rail Medical History: Hypertension, Diabetes and Arthritis Medical History Comments:: GERD, CKD, GI bleed LATEX ALLERGY?: No Surgical History: Lumbar Spine Surgical History Comments:: mitral valve repair Medications: see chart Subjective Information/ Patient Comments:: pt states that she has had to use rwx the last couple of days because she was weak from being sick. pt reports that she is supposed to have an appt with ortho MD on Monday about getting total hip arthroplasty. Level of function Abilities prior to this admission: prior to this past week pt was independent without AD, independent with ADL's, has used rwx since being sick. Current Level of Function: Partially Dependent Current Equipment Used at Home: rwx, glucometer Interventions Objective Patient Orientation: Person, Place, Time and Situation Current Interventions: Oxygen (2 liters ) and Telemetry Observation: pulse ox 100% after ambulation Range of Motion ROM Right Upper Extremity AROM: WFL's Left Upper Extremity AROM: WFL's Right Lower Extremity AROM: WFL's Left Lower Extremity AROM: WFL's Muscle Strength Muscle Strength Right Upper Extremity: Mild Weakness (grossly 4/5 ) Left Upper Extremity: Mild Weakness (grossly 4/5 ) Right Lower Extremity: Mild Weakness (hip flex 4/5, knee flex 4+/5, ext 4/5, ankle DF/PF 4+/5) Left Lower Extremity: Mild Weakness (hip flex 4/5, knee flex 4+/5, ext 4/5, ankle DF/PF 4+/5) Sensation Sensation Right Upper Extremity: Intact/Normal Left Upper Extremity: Intact/Normal Right Lower Extremity: Intact/Normal Left Lower Extremity: Intact/Normal Palpation Palpation Findings: None/Normal Balance Sitting Balance and Reactions Static Sitting Balance: Good Dynamic Sitting Balance: Fair (fair+) Standing Balance and Reactions Static Standing Balance: Poor Dynamic Standing Balance: Poor Functional Mobility Bed Mobility Rolling R/L: CGA Supine to Sit: CGA Sit to Supine: CGA Transfers Sit to Stand: CGA Stand to Sit: CGA Safety Awareness Safety Awareness: Fair CHRISSIE INDEX SCORE: n/a Ambulation Ambulation Assistive Device Used: Rolling Walker Orthotic/Prosthetic Device: No Distance: 95ft Assistance needed with Ambulation: CGA Quality of Ambulation: pt amb with 2 liters O2 Gait Deviations: Forward posture and Short stride Ambulation Comments: pt with SOA noted during amb O2 sat 100% Factors Affecting Ambulation: Decreased Balance, Breathing/O2 Saturation, Weakness, Decreased Safety and Limited Endurance Treatment time Units charged Gait trainin Time with patient Length of Evaluation: 18 Total treatment time: 29 Patient Education Education Patient Education: Activity Modification and Education of Plan of Care Teaching Recipient: Patient Teaching Methods: Discussion Comments: discussion regarding POC and dc planning Assessment Assessment Problem List:: Decreased level of function, Requires training/education, Decreased safety/Risk of falls and Weakness Rehab Potential: Good Further Therapy Indicated?: Yes Candidate for Swing Bed for Therapy Services?: Feel pt may not be a candidate for swing bed due to high level of function. Evaluation Complexity: HISTORY: Medium, EXAM OF BODY SYSTEMS: Medium, CLINICAL PRESENTATION: Medium and CLINICAL DECISION MAKING: Medium Patient's Goal(s): Return home with as independent as possible Short Term Goals GOAL #1: pt demonstrate rolling and scooting in bed independently. Goal to be met by: 10/19/23 GOAL #2: Transfer sup to/from sit SBA Goal to be met by: 10/19/23 GOAL #3: Transfer sit to/from stand SBA Goal to be met by: 10/19/23 GOAL #4: pt amb with rwx 140ft with SBA to CGA Goal to be met by: 10/19/23 GOAL #5: Improve BLE strength 4+to 5/5 Goal to be met by: 10/19/23 [employer]ic [employer] Goals GOAL #1: pt transfer sup to/from sit to/from stand SBA to independent Goal to be met by: 10/21/23 GOAL #2: pt amb with rwx functional household distances with SBA no LOB Goal to be met by: 10/21/23 GOAL #3: pt ascend/descend 2-3 steps with HR with CGA Goal to be met by: 10/21/23 Plan Plan of Care: Therapeutic EX, Neuromuscular Re-Educ and Therapeutic Activity Other:: gait training Frequency of Treatment: 1-2 X day, as tolerated Duration of Treatment: 4 days Anticipated Discharge Destination: Home Treatment Diagnosis (ICD 10 Codes): impaired balance R 26.81 gait difficulty R 26.2 weakness M62.81 Has the Physician been added for Co-signature?: Yes
[2023-10-17] MEDS: COUMADIN PO ONE (17:13)
[2023-10-17] MEDS: ZOCOR PO SCH (20:12)
[2023-10-17] MEDS: HUMALOG SUBCUT PRN (20:18)
[2023-10-18 05:07] LABS: BASOPHILS % (AUTO) 0.2 % (0.0-3.0); EOSINOPHILS # (AUTO) 0.3 K/ul (0.0-0.7); EOSINOPHILS % (AUTO) 5.9 % (0.0-7.0); HEMATOCRIT 31.5 % (37.0-47.0); HEMOGLOBIN 10.7 g/dl (12.0-16.0); IMMATURE GRANULOCYTE % (AUTO) 0.4 % (0.0-5.0); LYMPHOCYTES # (AUTO) 1.2 K/uL (0.60-3.4); LYMPHOCYTES % (AUTO) 21.1 (10.0-50.0); MEAN CORPUSCULAR HEMOGLOBIN 27.3 pg (27.0-31.0); MEAN CORPUSCULAR VOLUME 80.4 fl (81.0-99.0); MONOCYTES # (AUTO) 0.7 K/uL (0.4-2.0); MONOCYTES % (AUTO) 13.1 (0-10); NEUTROPHILS # (AUTO) 3.3 K/ul (2.0-6.9); NEUTROPHILS % (AUTO) 59.3 % (42.2-75.2); PLATELET COUNT 183 10^3/uL (140-440); RDW COEFFICIENT OF VARIATION 13.5 % (11.6-14.8); RED BLOOD COUNT 3.92 10^6/ul (4.20-5.40); WHITE BLOOD COUNT 5.59 K/ul (4.6-10.2)
[2023-10-18 05:19] LABS: ALANINE AMINOTRANSFERASE 18.1 U/L (0-35); ALBUMIN 3.94 g/dL (3.5-5.0); ALKALINE PHOSPHATASE 33.1 U/L (53-141); BILIRUBIN,TOTAL 0.76 mg/dL (0.2-1.3); BLOOD UREA NITROGEN 22.8 mg/dL (7-17); CALCIUM 8.94 mg/dL (8.4-10.2); CARBON DIOXIDE 29.5 mmol/L (22-30.0); CHLORIDE 86.1 mmol/L (98-107); CREATININE 1.02 mg/dL (0.60-1.30); POTASSIUM 2.91 mmol/L (3.5-5.1); PROTHROMBIN TIME 19.5 SEC (9.3-11.0); TOTAL PROTEIN 7.15 g/dL (6.3-8.2)
--- NOTE | 2023-10-18 09:37 | PCM.PROG ---
Date/Time Seen Date Seen by Provider: 10/18/23 Time Seen by Provider: 08:30 Provider Provider[facility]UD[facility]IG [facility] Chief Complaint Chief Complaint: CHF,ACUE RESPIRATORY FAILURE Subjective Subjective: Patient is feeling ok but took a shower this morning and became sob. She is now recovering. Still requiring O2. Otherwise no events overnight. Objective Appearance: Positive Well-appearing, Well-nourished, No Apparent Distress and Alert and Oriented x3 Chest/Lungs: Positive Symmetrical With Equal Breath Sounds, Rhonci (adrian) and Wheezes (worse today ) Heart: Positive RRR GI/: Positive Soft, Nontender, Bowel Sounds Normal and No Distention Neurological: Positive Cranial Nerves Intact, Alert, Oriented and Other (+generalized weakness ) Vital Signs Vital Signs: Vital Signs: Last 24 Hours 10/17/23 13:00 10/17/23 13:04 10/17/23 13:36 Temperature Temperature Source Pulse Rate Respiratory Rate Blood Pressure Blood Pressure Mean Blood Pressure Location Blood Pressure Position O2 Sat by Pulse Oximetry 98 Oxygen Delivery Method Nasal Cannula Oxygen Flow Rate 2 Height 5 ft 6 in Weight 159 lb 14.4 oz Telemetry Type Remote Telemetry Telemetry Monitoring Continues Irregular Telemetry Rate (Approximate) Telemetry Heart Rate 65 Telemetry SPO2 100 EKG IN Interval 0.10 L EKG QRS Interval 0.16 H Telemetry Strip Reading Junctional with PVC 10/17/23 14:00 10/17/23 19:00 10/17/23 19:30 Temperature 98 F Temperature Source Temporal Artery Scan Pulse Rate 72 Respiratory Rate 17 18 Blood Pressure 130/60 Blood Pressure Mean 83 Blood Pressure Location Right Arm Blood Pressure Position Sitting O2 Sat by Pulse Oximetry 95 Oxygen Delivery Method Nasal Cannula Nasal Cannula Oxygen Flow Rate 2 2 Height Weight Telemetry Type Remote Telemetry Telemetry Monitoring Continues Irregular Telemetry Rate (Approximate) 70-80 BPM Telemetry Heart Rate Telemetry SPO2 99 EKG IN Interval EKG QRS Interval 0.09 Telemetry Strip Reading A-FIB VS ACCELERATED JUNCTIONAL 10/17/23 20:47 10/18/23 01:00 10/18/23 05:03 Temperature 98.5 F 97.3 F L Temperature Source Temporal Artery Scan Temporal Artery Scan Pulse Rate 77 75 Respiratory Rate 18 16 Blood Pressure 136/79 117/67 Blood Pressure Mean 98 83 Blood Pressure Location Left Arm Right Arm Blood Pressure Position Supine Supine O2 Sat by Pulse Oximetry 94 L 97 Oxygen Delivery Method Nasal Cannula Nasal Cannula Oxygen Flow Rate 2 2 Height Weight Telemetry Type Remote Telemetry Telemetry Monitoring Continues Irregular Telemetry Rate (Approximate) Telemetry Heart Rate 70 Telemetry SPO2 EKG IN Interval EKG QRS Interval 0.08 Telemetry Strip Reading ACCELERATED JUNCTIONAL 10/18/23 05:36 10/18/23 07:00 10/18/23 08:00 Temperature Temperature Source Pulse Rate Respiratory Rate 18 Blood Pressure Blood Pressure Mean Blood Pressure Location Blood Pressure Position O2 Sat by Pulse Oximetry 94 L Oxygen Delivery Method Nasal Cannula Nasal Cannula Oxygen Flow Rate 2 2 Height Weight Telemetry Type Remote Telemetry Telemetry Monitoring Continues Irregular Telemetry Rate (Approximate) 70-80 BPM Telemetry Heart Rate 70 Telemetry SPO2 97 EKG IN Interval EKG QRS Interval 0.08 Telemetry Strip Reading Accelerated Junctional with PAC's Lab Results Lab Results: Lab Results: Last 24 Hours 10/18/23 05:02 WBC 5.59 RBC 3.92 L Hgb 10.7 L Hct 31.5 L MCV 80.4 L MCH 27.3 MCHC 34.0 RDW Coeff of Zeus 13.5 Plt Count 183 Immature Gran % (Auto) 0.4 Neut % (Auto) 59.3 Lymph % (Auto) 21.1 Yell % (Auto) 13.1 H Eos % (Auto) 5.9 Baso % (Auto) 0.2 Neut # (Auto) 3.3 Lymph # (Auto) 1.2 Yell # (Auto) 0.7 Eos # (Auto) 0.3 Baso # (Auto) 0.0 Immature Gran # (Auto) 0.0 PT 19.5 H INR 1.95 Sodium 127.0 L Potassium 2.91 L Chloride 86.1 L Carbon Dioxide 29.5 Anion Gap 14.31 BUN 22.8 H Creatinine 1.02 Estimated GFR (MDRD) 53.00 BUN/Creatinine Ratio 22.35 Glucose 120.0 H Calcium 8.94 Total Bilirubin 0.76 AST 46.0 H ALT 18.1 Alkaline Phosphatase 33.1 L Total Protein 7.15 Albumin 3.94 Globulin 3.21 Albumin/Globulin Ratio 1.22 Additional Comments Additional Comments: I have independently reviewed and interpreted the labs/EKGs/imaging ordered during this hospital stay. I have reviewed outside records that are available in our EMR that pertain to medical stay including imaging/notes/labs from previous visits. Active Medications Active Medications: Medications Generic Name Dose Route Start Last Admin Trade Name Freq PRN Reason Stop Dose Admin Acetaminophen 500 mg 10/16/23 22:07 Acetaminophen 500 Mg Tablet PO Q4HR PRN FEVER/PAIN Albuterol/Ipratropium 3 ml 10/16/23 22:19 10/17/23 13:04 Ipratropium/Albuterol Vial.Neb NEB 3 ml Q4H PRN Administration sob Amlodipine Besylate 5 mg 10/17/23 09:00 10/18/23 08:07 Amlodipine Besylate 5 Mg Tablet PO 5 mg DAILY GANESH Administration Benzonatate 100 mg 10/17/23 11:07 10/17/23 11:50 Benzonatate 100 Mg Capsule PO 100 mg TID PRN Administration Cough Carvedilol 12.5 mg 10/17/23 08:30 10/18/23 08:05 Carvedilol 12.5 Mg Tablet PO 12.5 mg BIDWM2 GANESH Administration Doxycycline Hyclate 100 mg 10/17/23 00:50 10/18/23 08:07 Doxycycline Hyclate 100 Mg Capsule PO 10/21/23 22:00 100 mg Q12HR GANESH Administration Guaifenesin 600 mg 10/17/23 11:30 10/18/23 08:07 Guaifenesin 600 Mg Tablet.Er PO 600 mg Q12HR GANESH Administration CEFTRIAXONE/D5W 1 GM PREMIX 1 gm in 50 mls @ 100 mls/hr 10/17/23 21:00 10/17/23 20:19 Rocephin 1 Gm/50 Ml D5w IV 10/20/23 00:49 100 mls/hr BEDTIME GANESH Administration Indapamide 1.25 mg 10/17/23 09:00 10/18/23 08:08 Indapamide 2.5 Mg Tablet PO 1.25 mg DAILY GANESH Administration Insulin Human Lispro 0 unit 10/17/23 09:09 10/17/23 20:18 Insulin Lispro 100 Unit/Ml Vial SUBCUT 4 unit PRN PRN Administration Hyperglycemia Protocol Levothyroxine Sodium 88 mcg 10/17/23 09:00 10/18/23 05:11 Levothyroxine Sodium 88 Mcg Tablet PO 88 mcg QDAC2 GANESH Administration Lisinopril 40 mg 10/17/23 09:00 10/18/23 08:07 Lisinopril 40 Mg Tablet PO 40 mg DAILY GANESH Administration Loratadine 10 mg 10/17/23 08:08 10/17/23 08:32 Loratadine 10 Mg Tablet PO 10 mg DAILY PRN Administration Allergy Symptoms Nystatin 1 applic 10/17/23 09:00 10/18/23 08:08 Nystatin 15 Gm Powder TP 1 applic BID GANESH Administration Pantoprazole Sodium 40 mg 10/17/23 09:00 10/18/23 05:11 Pantoprazole Sodium 40 Mg Tablet.Dr PO 40 mg QDAC2 GANESH Administration Polysaccharide Iron Complex 150 mg 10/17/23 09:00 10/18/23 08:07 Iron Polysaccharide Complex 150 Mg Capsule PO 150 mg DAILY GANESH Administration Potassium Chloride 10 meq 10/17/23 09:00 10/18/23 08:06 Potassium Chloride 10 Meq Capsule.Er PO 10 meq DAILYWM2 GANESH Administration Potassium Chloride 40 meq 10/18/23 15:00 Potassium Chloride 20 Meq Tab PO 10/18/23 15:01 ONCE ONE Simvastatin 40 mg 10/17/23 21:00 10/17/23 20:12 Simvastatin 40 Mg Tablet PO 40 mg BEDTIME GANESH Administration Sodium Chloride 1 syr 10/17/23 05:00 10/18/23 05:10 0.9% Sodium Chloride 10 Ml Disp.Syrin IVF 1 syr Q8HR GANESH Administration Sotalol HCl 120 mg 10/17/23 09:00 10/18/23 08:10 Sotalol Hcl 80 Mg Tablet PO 120 mg BID GANESH Administration Warfarin Sodium 3 mg 10/18/23 17:00 Warfarin Sodium 3 Mg Tablet PO QPM GANESH Plan Plan: 1. Acute hypoxic respiratory failure in setting of left lower lobe pneumonia - RT consult, wean O2 when able 2. Left lower lobe pneumonia, community acquired - PSI 97, class IV, requiring hospitalization. Rocephin, doxy, duonebs, O2 supplementation. PT/OT. Add solumed rol q8hrs. 3. Subtherapeutic INR - Improved. INR 1.95. Resume normal dosing. Daily INRs. 4. A fib - Cont home meds. 5. Hx of mitral valve repair - Pt unsure of details. 6. DMT2 - Hold metformin, humalog sliding scale, accuchecks achs. 7. Hypertension - Cont home meds 8. Hyperlipidemia - Cont home meds 9. Hypokalemia - Replaced 10. Hyponatremia - Worsened with fluid restriction. Pt appears mildly dry, BUN increasing. NS ordered at 100 ml/hr, sodium tabs ordered. DVT Prophylaxis: Warfarin Dispo: Dc once medically stable, likely next 1-2 days Review Statement Review Statement: I have personally discussed and reviewed the patient's visit/currently labs/imaging/decision making with Dr. Joaquin, my supervising attending. Greater that 50 minutes spent with patient, 50% of the time spent with this patient was devoted to counseling and coordination of care.
[2023-10-18] MEDS: SODIUM CHLORIDE 1,000 ML IV SCH (10:01)
[2023-10-18] MEDS: SODIUM CHLORIDE PO SCH (10:03)
[2023-10-18] MEDS: SOLU-MEDROL 40 MG IVP SCH (10:04)
[2023-10-18] MEDS: K-DUR PO ONE ×2 (10:04→14:29)
[2023-10-18] MEDS: COUMADIN PO SCH (17:25)
[2023-10-18] MEDS: ROCEPHIN 1 GM/50 ML D5W 1 GM/50 ML BAG IV SCH (20:25)
[2023-10-18 20:32] LABS: BLOOD UREA NITROGEN 23.2 mg/dL (7-17); CALCIUM 8.94 mg/dL (8.4-10.2); CARBON DIOXIDE 23.4 mmol/L (22-30.0); CHLORIDE 91.5 mmol/L (98-107); CREATININE 0.93 mg/dL (0.60-1.30); GLUCOSE 385.7 mg/dL (74-106); POTASSIUM 4.07 mmol/L (3.5-5.1); SODIUM 127.3 mmol/L (134.5-145)
[2023-10-18] MEDS: HUMALOG SUBCUT PRN (21:36)
[2023-10-19 05:14] LABS: HEMATOCRIT 32.3 % (37.0-47.0); HEMOGLOBIN 10.9 g/dl (12.0-16.0); IMMATURE GRANULOCYTE % (AUTO) 0.3 % (0.0-5.0); LYMPHOCYTES # (AUTO) 0.7 K/uL (0.60-3.4); LYMPHOCYTES % (AUTO) 12.3 (10.0-50.0); MEAN CORPUSCULAR HEMOGLOBIN 27.2 pg (27.0-31.0); MEAN CORPUSCULAR HGB CONC 33.7 (31.8-35.4); MEAN CORPUSCULAR VOLUME 80.5 fl (81.0-99.0); MONOCYTES # (AUTO) 0.2 K/uL (0.4-2.0); MONOCYTES % (AUTO) 3.1 (0-10); NEUTROPHILS # (AUTO) 4.9 K/ul (2.0-6.9); NEUTROPHILS % (AUTO) 84.3 % (42.2-75.2); PLATELET COUNT 215 10^3/uL (140-440); RDW COEFFICIENT OF VARIATION 13.4 % (11.6-14.8); RED BLOOD COUNT 4.01 10^6/ul (4.20-5.40); WHITE BLOOD COUNT 5.83 K/ul (4.6-10.2)
[2023-10-19 05:25] LABS: ALANINE AMINOTRANSFERASE 20.5 U/L (0-35); ALBUMIN 4.21 g/dL (3.5-5.0); ALKALINE PHOSPHATASE 34.1 U/L (53-141); ASPARTATE AMINO TRANSFERASE 36.1 U/L (14-36); BILIRUBIN,TOTAL 0.67 mg/dL (0.2-1.3); BLOOD UREA NITROGEN 23.2 mg/dL (7-17); CALCIUM 9.62 mg/dL (8.4-10.2); CARBON DIOXIDE 27.1 mmol/L (22-30.0); CHLORIDE 92.8 mmol/L (98-107); CREATININE 0.93 mg/dL (0.60-1.30); GLUCOSE 295.4 mg/dL (74-106); POTASSIUM 3.81 mmol/L (3.5-5.1); PROTHROMBIN TIME 24.7 SEC (9.3-11.0); SODIUM 132.1 mmol/L (134.5-145); TOTAL PROTEIN 7.46 g/dL (6.3-8.2)
[2023-10-19 05:45] VITALS: BP 128/73; PULSE 73; RESP 17; TEMP 98.6
--- NOTE | 2023-10-19 09:09 | DCSUM ---
Admission Date Admission Date: 10/16/23 Discharge Date Discharge Date: 10/19/23 Admission Diagnosis Admission Diagnosis: 1. Acute hypoxic respiratory failure in setting of left lower lobe pneumonia 2. Left lower lobe pneumonia, community acquired 3. Subtherapeutic INR Discharge Diagnosis Discharge Diagnosis: 1. Acute hypoxic respiratory failure in setting of left lower lobe pneumonia - Resolved 2. Left lower lobe pneumonia, community acquired - Improved 3. Subtherapeutic INR - Resolved 4. A fib 5. Hx of mitral valve repair 6. DMT2 7. Hypertension 8. Hyperlipidemia 9. Hypokalemia - Resolved 10. Hyponatremia - Improved Hospital Provider Hospital Provider: LEFTY LUDWIG [facility]-C, [facility] Physician Primary Care Physician: WILLOW BOGGS MD Summary of History and Physical Summary of History and Physical: Patient is a 78 year old female with pmhx of a fib with chronic anticoagulation with coumadin, hypertension, hyperlipidemia, GERD, CKD, DMT2 who presented to ER with cough and SOB since 4-5 days ago. She thought it was just allergies, she's been working out in her garden. But she's had more SOB with exertion, non productive cough. She woke up one night sweaty. She has some chest pain when she coughs. She feels weak, she's had to use her walker the past couple days which is unlike her. In the ER she was noted to have oxygen saturations in upper 80s- low 90s. She was placed on 2L. BNP elevated. No hx of CHF. CXR showed left lower lobe pneumonia. She was given lasix. Patient admitted to [facility]. Patient had recent echo in June with normal EF. Hospital Course Subjective: Patient was treated with rocephin and doxycycline and duonebs. Patient was weaned to RA. Steroids were added due to wheezing. She did have low potassium and sodium, but this has corrected. By 10/18 patient was feeling better, well carola ugh to go home. She would like a nebulizer to have at home just in case, as the breathing treatments really helped her. She is hoping to be discharged today as she has an ortho apt tomorrow she has been waiting on. Will discharge on cefpodoxime, doxy, duonebs, medrol dose pack, and tessalon perles. INR 2.5 day of discharge. Pt will recheck this coming Monday which is her usual day. Cont usual warfarin dose. Red flags on when to return discussed. F/u with pcp next week. Pt agrees to plan of care. Appearance: Pleasant, No Apparent Distress and Alert HEENT: MMM and Supple CVS: No Murmur Abdomen: Soft, Non-Tender and No Distention Respiratory: Other (+speaking full sentences, ambulating well, nonlabored, mild wheezing and rhonchi noted adrian but much improved. ) Extremities: No Edema Vital Signs: Most Recent Vital Signs Temperature 98.6 F 10/19/23 05:43 Temperature Source Temporal Artery Scan 10/19/23 05:43 Temperature Source Temporal Artery Scan 10/16/23 20:36 Pulse Rate 73 10/19/23 05:43 Respiratory Rate 17 10/19/23 05:43 Blood Pressure 128/73 10/19/23 05:43 Blood Pressure Mean 91 10/19/23 05:43 Blood Pressure Left Arm 122/80 10/16/23 22:40 Blood Pressure Location Right Arm 10/19/23 05:43 Blood Pressure Position Supine 10/19/23 05:43 O2 Sat by Pulse Oximetry 95 10/19/23 05:43 Oxygen Delivery Method Room Air 10/19/23 05:43 Oxygen Flow Rate 1.5 10/18/23 20:34 Height 5 ft 6 in 10/17/23 13:36 Weight 159 lb 14.4 oz 10/17/23 13:36 Telemetry Type Remote Telemetry 10/19/23 01:00 Telemetry Monitoring Continues 10/19/23 01:00 Irregular Telemetry Rate (Approximate) 70-80 BPM 10/18/23 13:00 Telemetry Heart Rate 73 10/19/23 01:00 Telemetry SPO2 94 10/19/23 01:[address] Interval 0.10 L 10/17/23 13:00 EKG QRS Interval 0.09 10/19/23 01:00 Telemetry Strip Reading ACCELERATED JUNCTIONAL RYTHM 10/19/23 01:00 Imaging: EXAM: CHEST X-RAY ONE VIEW. HISTORY: Short of breath. COMPARISON: 04/27/2018 chest x-ray. FINDINGS: There are increased patchy opacities present within the left lower lung. The remaining lungs are clear. The cardiac silhouette is enlarged. There is no pulmonary edema, pleural effusion or pneumothorax. No change in the valve replacement, sternotomy wires or osseous structures. IMPRESSION: Left lower lung pneumonia. Cardiomegaly. Lab Results Last 24 Hours: 10/19/23 10/18/23 05:04 20:09 WBC 5.83 RBC 4.01 L Hgb 10.9 L Hct 32.3 L MCV 80.5 L MCH 27.2 MCHC 33.7 RDW Coeff of Zeus 13.4 Plt Count 215 Immature Gran % (Auto) 0.3 Neut % (Auto) 84.3 H Lymph % (Auto) 12.3 Gray % (Auto) 3.1 Eos % (Auto) 0.0 Baso % (Auto) 0.0 Neut # (Auto) 4.9 Lymph # (Auto) 0.7 Gray # (Auto) 0.2 L Eos # (Auto) 0.0 Baso # (Auto) 0.0 Immature Gran # (Auto) 0.0 PT 24.7 H D INR 2.51 Sodium 132.1 L 127.3 L Potassium 3.81 4.07 Chloride 92.8 L 91.5 L Carbon Dioxide 27.1 23.4 Anion Gap 16.01 16.47 BUN 23.2 H 23.2 H Creatinine 0.93 0.93 Estimated GFR (MDRD) 58.00 58.00 BUN/Creatinine Ratio 24.94 24.94 Glucose 295.4 H D 385.7 H D Calcium 9.62 8.94 Total Bilirubin 0.67 AST 36.1 H ALT 20.5 Alkaline Phosphatase 34.1 L Total Protein 7.46 Albumin 4.21 Globulin 3.25 Albumin/Globulin Ratio 1.29 Discharge Instructions Discharge Planning: Discharge Planning > [address] Maritza Boggs. Discharge Medications: Medications at Discharge (Home Meds & RX) Discharge Plan Discharge Discharge Orders: Discharge Patient (ONCE); Ordered 10/19/23 Ordered By: LEFTY LUDWIG Activity Restrictions/Additional Instructions: DISCHARGE TO HOME DX: PNEUMONIA DIET: CARDIAC ACTIVITY: TOLERATED MAY USE NEBULIZER NEEDED EVERY 4 HOURS FOR SHORTNESS OF BREATH PHARMACY: [facility] Loving/[facility] WITH DR. BOGGS'S OFFICE NEXT WEEK RETURN WITH WORSENING SYMPTOMS RECHECK INR ON MONDAY USUAL NEW PRESCRIPTIONS: CEFPODOXIME, DOXYCYCLINE (ANTIBIOTICS), MEDROL DOSE PACK (STEROID), DUONEB (NEBULIZER MEDICINE), TESSALON PERLES (COUGH MED) Care Plan Goals: Problem: Impaired Respiratory Status Goal: Exhibit optimal respiratory function Instructions: Activities as tolerated Apply oxygen as ordered Elevate head of bed Notify MD of increased congestion Patient Disposition: HOME SELF-CARE Prescriptions: New benzonatate 100 mg Capsule 100 mg PO TID PRN (Reason: cough) Qty: 30 0RF doxycycline hyclate 100 mg Capsule 100 mg PO Q12HR Qty: 6 0RF ipratropium-albuterol 0.5 mg-3 mg(2.5 mg base)/3 mL Solution For Nebulization 3 ml NEB Q4H PRN (Reason: shortness of breath or wheezing) Qty: 30 0RF methylprednisolone [Medrol (Thomas)] 4 mg tablets,dose pack See Rx Instructions .ROUTE .COMPLEX Qty: 21 0RF Rx Instructions: orally per package directions cefpodoxime 200 mg tablet 200 mg PO BID 2 Days Qty: 4 0RF Rx Instructions: must administer with a meal/food (DME) NEBULIZER Misc See Rx Instructions .ROUTE Qty: 1 0RF Rx Instructions: As directed Continued warfarin 3 mg tablet See Rx Instructions .ROUTE .COMPLEX Qty: 90 0RF Dose Instruction: TAKE 1 TABLET BY MOUTH EVERY DAY Rx Instructions: TAKE 1 TABLET BY MOUTH EVERY DAY potassium chloride [Klor-Con 10] 10 mEq tablet extended release 10 meq PO DAILY Qty: 90 1RF cholecalciferol (vitamin D3) [Vitamin D3] 50 mcg (2,000 unit) capsule 2,000 unit PO DAILY zinc 50 mg capsule 50 mg PO DAILY lisinopril 40 mg tablet 40 mg PO DAILY loratadine [Claritin] 10 mg tablet 10 mg PO DAILY PRN (Reason: allergy symptoms) sotalol 120 mg tablet 120 mg PO BID polysaccharide iron complex [iFerex 150] 150 mg iron capsule 150 mg PO DAILY metformin 500 mg tablet extended release 24 hr 500 mg PO BID cyanocobalamin (vitamin B-12) 1,000 mcg tablet 1,000 mcg PO QDAY amlodipine 5 mg tablet 5 mg PO QDAY Qty: 90 1RF carvedilol 12.5 mg tablet 12.5 mg PO BIDWM Qty: 180 1RF indapamide 1.25 mg tablet 1.25 mg PO DAILY Qty: 90 1RF levothyroxine 88 mcg tablet 88 mcg PO DAILY Qty: 90 1RF pantoprazole [Protonix] 40 mg tablet,delayed release (DR/EC) 40 mg PO DAILY Qty: 90 1RF simvastatin 40 mg tablet 40 mg PO BEDTIME Qty: 90 1RF Discontinued guaifenesin [Adult Tussin Chest Congestion] 100 mg/5 mL liquid 200 mg PO Q6H PRN (Reason: cough) No Action (DME) OneTouch Verio test strips Strip See Rx Instructions .ROUTE Qty: 100 2RF Rx Instructions: As directed E11.9 DM2 (DME) blood-glucose meter [OneTouch Verio Flex meter] Misc See Rx Instructions .ROUTE Qty: 1 0RF Rx Instructions: As directed E11.9 DM2 (DME) lancets 33 gauge misc See Rx Instructions .ROUTE Qty: 100 5RF Rx Instructions: As directed E11.9 DM2 Did you review [place] LOAN [employer] for ALL controlled substances?: Not Applicable Discussed opioids are addictive and Narcan is available by prescription or from pharmacy.: No Condition: Stable Referrals: WILLOW BOGGS MD [Primary Care Provider] - 10/26/23 9:20 am
== END 2023-10-19 11:00 | disposition home or self-care (01) | DRG 189 ==
LOC: ED 20:28 → MEDSURG B 22:18
PROVIDERS: ADMIT Hospitalist; ATTEND Physician Assistant
DX: I50.9 Heart failure, unspecified; E78.5 Hyperlipidemia, unspecified; E87.6 Hypokalemia; Z79.01 Long term (current) use of anticoagulants; E87.1 Hypo-osmolality and hyponatremia; K21.9 Gastro-esophageal reflux disease without esophagitis; I12.9 Hypertensive chronic kidney disease with stage 1 through stage 4 chronic kidney disease, or unspecified chronic kidney disease; E11.22 Type 2 diabetes mellitus with diabetic chronic kidney disease; Z95.2 Presence of prosthetic heart valve; I48.91 Unspecified atrial fibrillation; N18.9 Chronic kidney disease, unspecified; J18.9 Pneumonia, unspecified organism; R21 Rash and other nonspecific skin eruption; J96.01 Acute respiratory failure with hypoxia